=== PATIENT | female | born 2005 | race Caucasian/White ===

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

== ENCOUNTER 2024-09-06 08:40 | Outpatient (OUT) | payer OTHER, SELFPAY ==
--- OUTSIDE RECORDS SUMMARY | 2024-09-06 08:56 | XMS_ITS | CCD ---
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 Name Role Phone DR CLEO BLANKENSHIP Primary Care Unavailable SANIA BARKER Admitting Unavailable SANIA BARKER Attending Unavailable DR CLEO BLANKENSHIP Primary Care Unavailable KARINA ALEJANDRO Admitting Unavailable KARINA ALEJANDRO Consulting Unavailable KARINA ALEJANDRO Attending Unavailable Marker D.O., Dee Gandara Attending Unavailab CLEO Nicholson Primary Care Unavailable Marker D.O.Dee Admitting Unavailab le NadiraWellington Brito Admitting Unavaila ble [place] Attending Unavaila CLEO Doherty Primary Care Unavailable [place] Monique Admitting Unavailable CLEO BLANKENSHIP Primary Care Unavailable [place] Monique Attending Unavailable NadiraWellington Brito Admitting Unavaila ted DHALIWAL, Wellington Cast Attending Unavaila CLEO Doherty Primary Care Unavailable CLEO BLANKENSHIP Primary Care Unavailable Marker D.O.Dee Admitting Unavailab le Marker D.O., Dee Gandara Attending Unavailab le [place] Monique Admitting Unavailable CLEO BLANKENSHIP Primary Care Unavailable [place] Monique Attending Unavailable [place] Monique Attending Unavailable [place] Monique Admitting Unavailable CLEO BLANKENSHIP Primary Care Unavailable [place] Monique Attending Unavailable CLEO BLANKENSHIP Primary Care Unavailable Cristino Moniqueime Charli Admitting Unavailable [place] Monique Attending Unavailable CLEO BLANKENSHIP Primary Care Unavailable [place] Monique Admitting Unavailable CLEO BLANKENSHIP Attending Unavailable CLEO BLANKENSHIP Primary Care Unavailable SELVIN DAMICO Attending Unavailable SELVIN DAMICO Attending Unavailable SELVIN DAMICO Referring Unavailable CLEO BLANKENSHIP Primary Care Unavailable SELVIN DAMICO Attending Unavailable SELVIN DAMICO Referring Unavailable CLEO BLANKENSHIP Primary Care Unavailable CLEO BLANKENSHIP Primary Care Unavailable LISA GAMEZ Attending Unavailable JIM MALONEY Attending Unavailable JIM MALONEY Referring Unavailable CLEO BLANKENSHIP Primary Care Unavailable Allergies Allergy Classification Reported Allergen(s) Allergy Type Date of Onset Reaction(s) Facility (1 source) DULoxetine Drug Allergy [facility] Repository (1 source) Skin Therapy; Translations: [Skin Therapy] Propensity to adverse reactions (disorder) [facility] Repository (2 sources) dimenhyDRINATE; Translations: [DIMENHYDRINATE] Drug Allergy [facility] Repository (2 sources) FLUoxetine; Translations: [FLUOXETINE] Drug Allergy [facility] Repository (1 source) Levonorgestrel; Translations: [LEVONORGESTREL] Drug Allergy [facility] Repository Problems Problem Classification Problem Date Documented Da te Episodic/Chronic Other connective tissue disease (4 sources) Pain in left finger(s); Translations: [PAIN IN LEFT FINGERS] Onset: 06-19-2022 Episodic Other non-traumatic joint disorders (1 source) Pain in right shoulder; Translations: [Pain in right shoulder] Onset: 07-10-2024 Episodic Other non-traumatic joint disorders (1 source) Shoulder pain Onset: 07-10-2024 Episodic Residual codes; unclassified (4 sources) Procedure and treatment not carried out due to patient leaving prior to being seen by health care provider; Translations: [PROC AND TX NOT CARRIED OUT PT LEAVE] Onset: 06-18-2022 Episodic Syncope (2 sources) Syncope and collapse; Translations: [Syncope] Onset: 03-26-2024 Episodic Unclassified (1 source) EMS Onset: 03-26-2024 Unclassified (1 source) drug by dog last mon, shoulder hurts Onset: 07-10-2024 Results Test Name Value Interpretation Reference Range Facility XR SHOULDER RT MIN 2 VWSon 0 07-10-2024 XR SHOULDER RT MIN 2 VWS XR SHOULDER RT MIN 2 VWS CLINICAL INFORMATION: shoulder pain TECHNIQUE: XR SHOULDER RT MIN 2 VWS 3 views right shoulder were obtained. There is no acute osseous abnormality no fractures seen. No malalignment. IMPRESSION: No acute findings. Finalized by Aurelio Vuong MD on 07/10/2024 8:30 PM Normal [facility] CBC AND AUTO DIFFon 03-26-20 24 ABSOLUTE BASOPHIL 0.0 X10E9/L Normal 0.0-0.2 [facility] Comment on above: Performed By: #### C KITTY, , 26666-8, CBCA #### [facility] ([id number]) [address] [place] [address] 45281 ABSOLUTE NEUTROPHIL 6.6 X10E9/L Normal 1.5-6.6 [facility] Comment on above: Performed By: #### C KITTY, , 69836-1, CBCA #### [facility] ([id number]) [address] [place] [address] 85821 Basophils/100 WBC (Bld) 0.2 % Normal [facility] Comment on above: Performed By: #### C KITTY, , 63771-2, CBCA #### [facility] ([id number]) [address] [place] [address] 37759 Eosinophils (Bld) [#/Vol] 0.1 10*3/uL Normal 0.0-0.4 [facility] Comment on above: Performed By: #### C KITTY, , 62447-1, CBCA #### [facility] ([id number]) [address] [place] [address] 56862 Eosinophils/100 WBC (Bld) 0.8 % Normal [facility] Comment on above: Performed By: #### C KITTY, , 01528-5, CBCA #### [facility] ([id number]) [address] [place] [address] 79969 Erythrocyte distribution width (RBC) [Ratio] 13.6 % Normal 11.5-15.0 [facility] Comment on above: Performed By: #### C KITTY, , 25061-9, CBCA #### [facility] ([id number]) [address] [place] [address] 94181 Hematocrit (Bld) [Volume fraction] 34.3 % Low 35-47 [facility] Comment on above: Performed By: #### C KITTY, , 30429-1, CBCA #### [facility] ([id number]) [address] [place] [address] 98079 Hemoglobin (Bld) [Mass/Vol] 12.0 g/dL Normal 11.7-15.5 [facility] Comment on above: Performed By: #### Julia TANG, , 97130-7, CBCA #### [facility] ([id number]) [address] [place] [address] 13695 Lymphocytes (Bld) [#/Vol] 1.0 10*3/uL Normal 1.0-3.5 [facility] Comment on above: Performed By: #### C KITTY, , 78269-8, CBCA #### [facility] ([id number]) [address] [place] [address] 94364 Lymphocytes/100 WBC (Bld) 12.6 % Normal [facility] Comment on above: Performed By: #### C KITTY, , 61516-8, CBCA #### [facility] ([id number]) [address] [place] [address] 84863 MCH (RBC) [Entitic mass] 29.5 pg Normal 27-34 [facility] Comment on above: Performed By: #### C KITTY, , 83375-2, CBCA #### [facility] ([id number]) [address] [place] [address] 23268 MCHC (RBC) [Mass/Vol] 35.0 g/dL Normal 32-36 [facility] Comment on above: Performed By: #### C KITTY, , 31614-7, CBCA #### [facility] ([id number]) [address] [place] [address] 40809 MCV (RBC) [Entitic vol] 84 fL Normal 80-100 [facility] Comment on above: Performed By: #### C KITTY, , 15020-3, CBCA #### [facility] ([id number]) [address] [place] [address] 81331 Monocytes (Bld) [#/Vol] 0.4 10*3/uL Normal 0-0.9 [facility] Comment on above: Performed By: #### C KITTY, , 26180-3, CBCA #### [facility] ([id number]) [address] [place] [address] 96476 Monocytes/100 WBC (Bld) 5.0 % Normal [facility] Comment on above: Performed By: #### C KITTY, , 13732-3, CBCA #### [facility] ([id number]) [address] [place] [address] 78571 Neutrophils/100 WBC (Bld) 81.4 % Normal [facility] Comment on above: Performed By: #### C KITTY, , 91203-6, CBCA #### [facility] ([id number]) [address] [place] [address] 43015 Platelet mean volume (Bld) [Entitic vol] 9.1 fL Normal 7-12 [facility] Comment on above: Performed By: #### C KITTY, , 10659-0, CBCA #### [facility] ([id number]) [address] [place] [address] 13451 Platelets (Bld) [#/Vol] 182 10*3/uL Normal 150-450 [facility] Comment on above: Performed By: #### C KITTY, , 58458-0, CBCA #### [facility] ([id number]) [address] [place] [address] 81186 RBC COUNT 4.08 X10E12/L Normal 3.80-5.20 [facility] Comment on above: Performed By: #### C KITTY, , 38526-5, CBCA #### [facility] ([id number]) [address] [place] [address] 16183 WBC (Bld) [#/Vol] 8.1 10*3/uL Normal 4.0-11.0 [facility] Comment on above: Performed By: #### C KITTY, , 14691-8, CBCA #### [facility] ([id number]) [address] [place] [address] 58692 COMPREHENSIVE METABOLIC PANE [facility] 03-26-2024 Albumin [Mass/Vol] 3.8 g/dL Normal 3.2-5.3 [facility] Comment on above: Performed By: #### C KITTY, , 78328-6, CBCA #### [facility] ([id number]) [address] [place] [address] 72884 ALP [Catalytic activity/Vol] 58 U/L Normal 39-130 [facility] Comment on above: Performed By: #### C KITTY, , 85406-9, CBCA #### [facility] ([id number]) [address] [place] [address] 19349 ALT [Catalytic activity/Vol] 11 U/L Normal 0-31 [facility] Comment on above: Performed By: #### C KITTY, , 67230-7, CBCA #### [facility] ([id number]) [address] [place] [address] 50764 Anion gap [Moles/Vol] 7 mmol/L Normal 5-15 [facility] Comment on above: Performed By: #### C KITTY, , 30993-9, CBCA #### [facility] ([id number]) [address] [place] [address] 44584 AST [Catalytic activity/Vol] 18 U/L Normal 0-41 [facility] Comment on above: Performed By: #### C KITTY, , 28118-3, CBCA #### [facility] ([id number]) [address] [place] [address] 60726 Bilirubin [Mass/Vol] 0.6 mg/dL Normal 0.3-1.2 [facility] Comment on above: Performed By: #### C KITTY, , 11383-2, CBCA #### [facility] ([id number]) [address] [place] [address] 68895 Calcium [Mass/Vol] 8.9 mg/dL Normal 8.5-10.5 [facility] Comment on above: Performed By: #### C KITTY, , 21756-5, CBCA #### [facility] ([id number]) [address] [place] [address] 29609 Chloride [Moles/Vol] 106 mmol/L Normal 98-109 [facility] Comment on above: Performed By: #### C KITTY, , 25790-5, CBCA #### [facility] ([id number]) [address] [place] [address] 53060 CO2 [Moles/Vol] 24 mmol/L Normal 22-32 [facility] Comment on above: Performed By: #### C KITTY, , 53271-9, CBCA #### [facility] ([id number]) [address] [place] [address] 79280 Creatinine [Mass/Vol] 0.76 mg/dL Normal 0.40-1.00 [facility] Comment on above: Result Comment: METH OD TRACEABLE TO IDMS STANDARD Performed By: #### C KITTY, , 09760-3, CBCA #### [facility] ([id number]) [address] [place] [address] 08156 eGFR (CKD-EPI) NON-RACE DEPENDENT >90 Normal >59 [facility] Comment on above: Result Comment: Reported eGFR is based on the CKD-EPI 2020 equation that does not use a race coefficient. Performed By: #### C KITTY, , 46659-6, CBCA #### [facility] ([id number]) [address] [place] [address] 52408 Glucose [Mass/Vol] 65 mg/dL Normal 65-99 [facility] Comment on above: Performed By: #### C KITTY, , 80150-3, CBCA #### [facility] ([id number]) [address] [place] [address] 31029 Potassium [Moles/Vol] 4.0 mmol/L Normal 3.5-5.0 [facility] Comment on above: Performed By: #### C KITTY, , 86494-9, CBCA #### [facility] ([id number]) [address] [place] [address] 12941 Protein [Mass/Vol] 6.5 g/dL Normal 6.0-8.0 [facility] Comment on above: Performed By: #### C KITTY, , 41456-7, CBCA #### [facility] ([id number]) [address] [place] [address] 33915 Sodium [Moles/Vol] 137 mmol/L Normal 134-146 [facility] Comment on above: Performed By: #### C KITTY, , 87271-0, CBCA #### [facility] ([id number]) [address] [place] [address] 36376 Urea nitrogen [Mass/Vol] 14 mg/dL Normal 5-23 [facility] Comment on above: Performed By: #### C KITTY, , 07276-8, CBCA #### [facility] ([id number]) [address] [place] [address] 44238 HCG ( test) Ql (U)o n 03-26-2024 Beta HCG ( test) Ql (U) Negative Normal NEG [facility] Comment on above: Performed By: #### 2 106-3 #### [facility] ([id number]) [address] [place] [address] 48628 MAGNESIUMon 03-26-2024 Magnesium [Mass/Vol] 1.9 mg/dL Normal 1.8-2.6 [facility] Comment on above: Performed By: #### C KITTY, , 51558-2, CBCA #### [facility] ([id number]) [address] [place] [address] 21394 Troponin I.cardiac High sens itivity method [Mass/Vol]on 03-26-2024 TROPONIN I, HIGH SENSITIVITY <2 Normal <16 [facility] Comment on above: Result Comment: Reference ranges have not been established for patients under 21 years of age. Performed By: #### C KITTY, , 44371-6, CBCA #### [facility] ([id number]) [address] [place] [address] 03151 URN MACROSCOPIC NURon 2023 BILIRUBIN JOSE MIGUEL Negative Normal NEG [facility] Comment on above: Performed By: #### N UM #### [facility] ([id number]) [address] [place] [address] [place] [address] BLOOD/HGB JOSE MIGUEL Negative Normal NEG [facility] Comment on above: Performed By: #### N UM #### [facility] ([id number]) [address] [place] [address], [place] [address] GLUCOSE JOSE MIGUEL Negative Normal NEG [facility] Comment on above: Performed By: #### N UM #### [facility] ([id number]) [address] [place] [address] [place] [address] KETONES JOSE MIGUEL Negative Normal NEG [facility] Comment on above: Performed By: #### N UM #### [facility] ([id number]) [address] [place] [address] [place] [address] LEUKOCYTE ESTERASE JOSE MIGUEL Trace Abnormal NEG Pr [facility] Comment on above: Performed By: #### N UM #### [facility] ([id number]) [address] [place] [address] [place] [address] NITRITE JOSE MIGUEL Negative Normal NEG [facility] Comment on above: Performed By: #### N UM #### [facility] ([id number]) [address] [place] [address] [place] [address] PH JOSE MIGUEL 8.0 Normal 5.0-8.5 [facility] Comment on above: Performed By: #### N UM #### [facility] ([id number]) [address] [place] [address] [place] [address] PROTEIN JOSE MIGUEL Negative Normal NEG [facility] Comment on above: Performed By: #### N UM #### [facility] ([id number]) [address] [place] [address] [place] [address] SPECIFIC GRAVITY JOSE MIGUEL 1.020 Normal 1.003-1.035 [facility] Comment on above: Performed By: #### N UM #### [facility] ([id number]) [address] [facility], [place] [address] UROBILINOGEN JOSE MIGUEL 0.2 eu/dL Normal <1.1 [facility] Comment on above: Performed By: #### N UM #### [facility] ([id number]) [address] [place] [address], [place] [address] XR CHEST 2 VWSon 03-26-2024 XR CHEST 2 VWS XR CHEST 2 VWS XR CHEST 2 VWS CLINICAL INDICATION: Syncope. COMPARISON: None. IMPRESSION: 1. No acute cardiopulmonary abnormality. Finalized by Marcell Chavez MD on 03/26/2024 5:18 PM Normal [facility] Coding Summaryon 08-19-2022 Coding Summary HTMLBase 64 LxofncmmKGo7iQr+PGhl YWQ+AC8CUUDkH48mhRVt pD9MR7rSET0FXDKCMBGR DA3ZDS4ncRI4FQdfT2Xd biAv ZliieCVnPE91ZQc2XAU7 vBtxGEmvbK7fyXZzM1l1 YnStYY62iT25KEouOHWy UzL2AkIshzgmnVFe M0sgBxKqmVGmGnj+PHRh YmxlIHdpZHRoPScxMDAl JlHilOqmAB8eBr8iPOSf LWNvbGxhcHNlOiBj w9jnWESpHIzfLG8beIij J7StoUH7QRIuk1a9Lj01 dHI+JVQmHXO2wZpnXBxy e986UnXaq4bgYBA6 iISfNPalXZB9D79si8G4 POMiERXcLKA2dBI3lT3t oXpinzowA2HmyYSfHhW1 SQN0lWLjuT8ooYzh nlgujB0xIcn+E67DXW1D ZNIPFN1LBug4C1HvNynf dHI+CQ67JEUbQV83gSKd jUDev1snjKc5XiWw RLKgETW3rZikWNhtz0Td UEJmT92bdXSod4A4GJYs jLysrCWjYbEkpAM3jR5o JBmcmhrgs5yjfjwy Tkwyh7keog87oC91G45i ORkoVQRnFDH1AXTuOERt pYbaqb1hoQ5kWe1+IDxj m6hso5xawXq8IlQd PUVbgrVqrVxmRHD1r3Sl Qr74N3YsgOwph3LbXam6 ku22kUMjb4F6kGY7MWcp YLVcmG8tTXabZeD2 ORBcQkTanV94zYSlIOnm Ej4pnOpqsZxiJZ1vOEGo hbvbKYBucW1yHOQddSMk oMssLW2tPLAshhgu l450GjFpOVS0JOIkmLNw V3DxdV4kLrBwQHLmUDQy I3EzfEWbXActE947SMyj UxA5GMYwdoEoI0Fy CXGafYfmPfU3o0L9Tt2K y5XhavnqBAH9LMdhXRYj MjGiFoNnFlU9M6RnWov2 AISrtNvwIR9wD2Js TJJpujfjdmijtZK2SDSu AAGupU66zAYxSQcvHn4h i2Q1d438ZYWdFYCftX69 Os0hkIfsZBKfyGFY kJ4tlixio3bhcxmlHvVe CLFhJHm6GDi4HLZawScs GpUaCCY2RrG8AZO8nRUx jY1doEgoelmwaP7r Oyc+M78yoU6zEQA2XDJ2 fcyhFCKlhpTpMC70TM31 G3KxRufrgNZgkOE+PGRp jvDqjJldXP6wBbNy v6kuz8CcCQqbC5HwQDTp IYfxRjy2YWNhZQX7tMI6 lT0uRSQqUDoqu7Q1vEZ2 M3AqjlMtrx0lc4rd FERzFNuhH79ooJHuk4K1 ETZekCD5QMIltNxbAxEl sR88Oco+RWHvbDcav9Wa Vzppi4nnv6trlJe6 IjMwJSIgdmFsaWduPSJ0 a6ZsPh09J66jRCrkNQCd JBKiYDZvEUDzdPokgl8r lS5zSn0+PGNvbCB3 nMV9lS1nAEZoKjT4JGih X147TeYajMDbVddci1tp b7ynvRl0QgOmBYNbbuGn nJteHTL9m2ZjZn19 A35pTBonAIJtTAHyUEXu JKQmcHfqkp2ayB6jQq3+ PQ5ib7odbp22pY49sUT+ PHDySII9pHmzHCfz CRBcdO8mAEvcPmJ5AUXe ZrKidM23qNFuOEsqXt9u qHcanJidEI3hDVWuxvid a279OwFph6qiAHVz nYGfAEgyAPM3U04jo5B4 NBJlCFMgJDO0aEY7tR6p bGlnbjogbGVmdDsgdmVy tSrqBGxzTGbcB008 IHRvcDsnPlBhdGllbnQg GyInEPe8J1JgBtf9UIPa qBxfQL0wiENhOEpvQc6j wPkmfEvxLG0dBMTz xwcmy606IaWww1ubWXPq qTYjOPrvPUC5O11ml6N9 KDOjGCEkXWG9nVH5kJ4q bGlnbjogbGVmdDsg cyAszVcbCFixOFrqR115 IHRvcDsnPkJpcnRoIERh aCI2MA07FH76pHTtc7O2 wFI5D6AxBGPmdyyq tykjzKQ0EZJoMUAwrR90 Mv1qfGafCi9zFZGzRIC7 EMBblWZyF4IemR5uBbCi LOOtDVVtX3KruUZn GWylV065OUvpIfU1QCSi krUsL4QuGEOnaMvuDqH5 q5M7Mb6MN7A4MN29IO47 jPChl7K8fHF0H1Bo GKAprmzxftqalMQ7DOOz YDMilJ15Zr0xvGdsJk7k MFOgZUD1JWWajWOjW7Yo jQ4cMqNcLKUjBXPp W1GdtSWlFWilU346JLuc OyT6EFDnulLeI5TqOKZa lOtqWvY7o9T3Ge1WJJj2 MC09JN63kCRel9U8 zDO9C2ZdSQJmvllrfjmb iWY2VJWhSFCliZ45Ng0d xHpfYg9oAOAfLZO2HKYp tRLgQ1XpjI5yJeCl OMTqGISqA6GfxODwQOac Q212SChsJeJ0KADmraXm U5HrELQwyVfqHpU7y9P8 Wv5KHYKtON20NAJ2 aDD1BM90BH15T7SiUhhq dGFibGU+PHRhYmxlIHdp ZHRoPScxMDAlJyBzdHls ZF4yQl7uOPYwYSRx aDztgWCjLmSti0hjPWEg YTbfZG6ajFcyZ5YpwYR8 DVMqo8t1Rj85G51hP5Az dXA+JDEoqIL3sHC3 kS2tIcKpZsR2XLmkK158 SgKrmORjYpgds2eks5cb xCl5CuW3WXSsdzHguMic KMQ1q3PnCq70K37v IHdpZHRoPSIxNSUiIHZh cWgaan0ivE2wFt5+PGNv qQG0nTM2jL0vMkCbOvN7 IXrzT336JhJytDKs Ekggf5bmx1flnIe4SaSc UEEebbKakXzaCWD8y2Wy Oh63R8ZluSopb9BjCbm3 pc23mMWbj4D9eSO4 M8JrDKIjejdqfHWsbQic RJ6aGAYtxwhvRIUizS6i STFlS8e5DvDnNoF2JRkm R2HxzlL2AFUwhHVx IPgaIGO4P26mw8X6DTBa MNMqIKK1hPW2iQ9ysXgd bjogbGVmdDsgdmVydGlj PHssQKlsI780MNGl uRcaQUMduR5vWHAjaSBj bYogDV2vWGSerbcdHpaQ FrJSKD4kYZdKWRQJQQzB OG6JK7nAVYE6F9Ld Gco1VOTxbOjbMM6njTGw ZQkfYq7kdAlfoYxjCG3r IHQyueudIVOggQ4yDIIy nJDfjRnuYZ8jGEFf toxlz334EhMyLOG0JUIm xOMbS5BwfT6uJfLmAOZm VKUjG2IrmCWeYCiwZ894 STbfHhK1SWEozlNm J1GsBQGnwPboCuU7u3J5 Ll9cCY8gCP5zZPL5II83 FS45zYLkf0S6pVH1Z7Zh ZGRpbmctcmlnaHQ6 MGDbRLIcwQ11bINpSTcn Ox6nv4U9y399LKTrGADy mB55Hh8ohHmtISBgfVFB wR9uapasy1gnkcxw YuNhUFYsZMd0TRq9QJTl lLcgQfHaNUL3SuX6GJC4 mSVlhF8lrFdhelgloX0n Oyc+MTcgWWVhcnM8 H7QpDtn8KAEcyXuhHQ7t vGYdSSmhAi6zcGdygItd SA9cHLQpclnpRZOdeR4d MLSpqQUglNgjQA1g FJHtkmlzv657ZtByFKZ8 ZRSszVMhV0OthV6bGlQd SWXoRZHeI6XewNBoRAop B401NDpsOzP1DLTm pfIzC4BxBKEplXhrXpG5 j8S1Og6UMK3UYBT4R6Tv Zwe8GEDmfIeeHY0dyAXz VBevOy7mzPryjIvt AE6yWRTrajxxQGOmgG6s CVUbcGDawWzlZN5kWHMh fhoac223FjQmDSP0PHAk vJPiG8NcwS5pTiJx QNHbWUZoC4DfnBTcRAhy I064LLwhRgY4SZUyniRf E4NrUEHexCkkJeA9a1C5 Tv8JMZnrlED+PC90 ws43V2YrGcbqSkb6EDTy SQQ1pLT0cI5jTRYpXYoo v6Z6lJR1X1RdfwGusv5d l2qaTPGlEMvqC65n pUKzl5H0REEaiXI5AYYo lUvfZxIlfJ67Vtf+PGNv iCagn4WqIqyrl9kow1co oQl9MlQhZLHteyKd iCbiMUY0l7YwWz74V46w IHdpZHRoPSIzMCUiIHZh bXixvc4glP1zOx7+PGNv jOY7mRW0rK7lTgAy HrF0IJgmU448HwAozIIb Hdmly2kkf2kmxOt7JbSv GZXuyoVruNsoPLC0m6Qw Gu23H3ZwgBnbt7Zn Oxh9lo85gYYpe8K6fOS6 O8TuPDTirgjrvSZeqDms UK7rOCLxegntEBDjrD5e MXWzB9g9VeWbFoJ2 EBuwJ3HyiaP1WXAlfKOr VIBotKRBaE0cbiktj2zg utyrQcZlJWScWQb0SBc7 LWFsaWduOiBsZWZ0 RoA9LAQ5kMUieS8syTdx ufrrxB2mJxn+BVh9t3bf iMEiHJ2iiYJ9GL92VK74 hAWua7T2oZI2B9Ac PRVjselxgkobkZE3SMHv TUWgkF42Ap0qhUltIb5h IQGcVLL9JXPawHHwA9Ls kE4nFoEeAAPuJWWo D5ZbiWRaUDneF110DUku PrP0GMGftmCnS5AhNLUd aXqsBzD9x6D4Su7VFQ17 YU60HS10bXOsc1Q1 mYO7K0TmSNKhyzxlvhjf eOT6FCUuLNWovY83Yf2k zBblYw3mGRSlPHF0HSAx qSDxW6YskO6xYoPz KFKwUNPbI9HpjELhAVrv I472XWqgRpR6DDEjugLt Z7KnITCddYqfTrI7h5B8 Si8ZCr40NR92GN36 rNKzl0M0iWQ0I7KhVUXy wnhaiovzkVC8MYLhHWVk aD23Zy0lrYpeJz6qTBFf BNN8IBIurCXdX5Mh qE7aUgThYTCnLKJiE2Iw aPTjGMubG145TIevTxA0 KIGunwZsQ8AlABFjeYwc GiC8d0X3Gq6NTZai idy1W6EmWrqqtWS+PC90 EHZiPF81wOSgzIBje7nf yRc9PzWdTAXpZNN1bXbn MSxnm5UoJSZnH40r bGF (more content not included)... [facility] Discharge Instructionson Discharge Instructions [id number] [facility] ED Clinical Summaryon 2021 ED Clinical Summary [facility] ? Urgent Care [address] [place], [place] [id number] Clinical Summary PERSON INFORMATION Name: NESHA LEE Age: 16 Years Sex: FEMALE : 2005 MRN: Acct#: Visit Reason: Medical screening exam; BWC-F/U LEFT PINKY FINGER INJURY Arrival: 08/16/2022 15:57:03 Discharge: 08/16/2022 16:31:00 LOS: 000 00:34 Check In: 08/16/2022 15:57:03 Checkout: 08/16/2022 16:31:00 Address: [address] [place] [address] [address] [facility] [address] PCP: CLEO BLANKENSHIP PROVIDER INFORMATION Provider Role Assigned Unassigned Kashmir Monique PA-C ED PA 08/16/2022 15:59:57 Ary Sarah ELECT[employer]ICIAN DECK Nurse 08/16/2022 16:03:36 VITALS INFORMATION Vital Sign Triage Latest Temperature Tympanic Temperature Temporal Artery Pulse Rate O2 Sat 97 % 97 % Respiratory Rate Blood Pressure /68 mmHg /68 mmHg MEDICAL INFORMATION Medications Given: Allergy Information: Skin Therapy PHYSICIAN DOCUMENTATION DISCHARGE INFORMATION: Discharge Disposition: Home Discharge Location: Home PATIENT EDUCATION INFORMATION Instructions: Follow-Up: With: Address: When: Return to this practice , only if needed DIAGNOSIS: Contusion of left hand including fingers; Contusion of unspecified finger without damage to nail, initial encounter Patient Understands: Yes - Patient/family/careg iver verbalizes understanding of instructions given Comment: Normal [facility] ED Patient Summaryon 022 ED Patient Summary [facility] ? Urgent Care [address] [place] [address] PATIENT DISCHARGE INSTRUCTIONS Patient Information Name: NESHA LEE Age: 16 Years Date of : 2005 Reason For Visit: Medical screening exam; BWC-F/U LEFT PINKY FINGER INJURY Arrival Time: 08/16/2022 15:57:03 Primary Care Physician: CLEO BLANKENSHIP Attending Physician: Kashmir Monique PA-C Comment: Patient Education With: Address: When: Return to this practice , only if needed Medication Information: The exam and treatment you received today in the [facility] Emergency Department were for an urgent problem and are not intended as complete care. It is important for you to follow up with a doctor, nurse practitioner, or physician?s health care assistant for ongoing care. If your symptoms become worse or you do not improve as expected and you are unable to reach your usual health care provider, you should return to the Emergency Department, we are available 24 hours a day. For those patients who have received Radiology results, the interpretation of your X-ray as given to you by our Emergency Department physician is only a preliminary report. The Radiologist will review your films and if there is a change in the diagnosis you will be notified by phone. Please make sure you have provided a working phone number so we can reach you if necessary. In the event that you had a lab culture while you were a patient in the Emergency Department, you will be notified by phone if there is a need to change your antibiotic. Please make sure you have provided a working phone number so we can reach you if necessary. [facility] Emergency Department has provided you with a complete list of medications post discharge. Please inform your infant babysitter/provider of your visit and for further instruction on these medications. Any specific questions regarding your chronic medications and dosages should be discussed with your primary care physician(s) and/or pharmacist. Visit Information Visit Diagnosis: Diagnoses This Visit Contusion of left hand including fingers (S60.222A) Contusion of unspecified finger without damage to nail, initial encounter (S60.00XA) Medical screening exam ([id number]) If you received any narcotics, sedation, or any other medication that causes drowsiness for the next 24 hours, unless otherwise directed: ? Do not drive a car. ? Do not operate machinery such as power tools, lawn mowers, drills, sewing machines, or stoves ? Avoid alcoholic beverages and drugs for allergies, nerves, or sleep ? Do not make important personal or business decisions or sign any legal documents Reason for Visit: [facility] f/u appt Allergies: Substance Reaction Symptoms Type Comments Skin Therapy Environment Vital Signs: Vitals and Measurements this Visit (last charted value for your 08/16/2022 visit) Vital Signs This Visit Peripheral Pulse Rate: 58 bpm Respiratory Rate: 16 br/min Systolic Blood Pressure: 104 mmHg Diastolic Blood Pressure: 68 mmHg SpO2: 97 % Oxygen Therapy: Room air Measurements This Visit Height/Length Measured: 180.34 cm Weight Measured: 78.02 kg Body Mass Index: 23.99 kg/m2 Problems List: Problem Onset Comments No Problems found Major Tests and Procedures: The following procedures and tests were performed during your ED visit. Laboratory Radiology Cardiology Viruses or Bacteria What?s got you sick? Antibiotics only treat bacterial infections. Viral illnesses cannot be treated with antibiotics. When an antibiotic is not prescribed, ask your healthcare professional for tips on how to relieve symptoms and feel better. Usual Cause Illness Viruses Bacteria Antibiotic Needed Cold/Runny Nose NO Bronchitis/Chest Cold (in otherwise healthy children and adults) NO Whooping Cough Yes Flu NO Strep Throat Yes Sore Throat (except strep) NO Fluid in the middle ear (otitis media with effusion) NO Urinary Tract Infection Yes Antibiotics Aren?t Always the Answer www.cdc.gov/getsmart GET SMART Know When Antibiotics Work [place].S. Department of Health and Human Services Centers for Disease Control and Prevention June 2014 Normal [facility] Urgent Care Note- Provideron 08-16-2022 Urgent Care Note- Provider Patient: NESHA LEE Age: 16 years Sex: FEMALE : 2005 Associated Diagnoses: Contusion of left hand including fingers Author: Kashmir Monique PA-C Basic Information Additional information: Chief Complaint from Nursing Triage Note : Chief Complaint 08/16/2022 16:17 EDT Chief Complaint [facility] f/u appt . History of Present Illness OCCUPATIONAL HEALTH FOLLOW-UP Date of injury: 06/14/22 Claim #: [id number] Employer: [employer] Mechanism of Injury: Smashed finger/hand with dough and bowl Diagnosis: Contusion of left hand including fingers This is a 16 year old here today in follow-up for her work related injury. She was working for [employer] at [employer] on 06/14 when she was carrying a bowl with dough and the bowl dropped onto her left hand. She stated that this was a very large, heavy bowl that requires two people to transport. After this happened, she was in too much pain to continue to do her job so she states she was sent home 2 hours early. She was already scheduled off the following day, but when it was no better the next day she was seen in our ER. X-ray was non acute. It seems like she overused the splint because of the persisting pain. She has been performing light duty work. With her continued complaints she was seen by ortho. They agreed associated symptoms are likely from overuse of her splint, and symptoms have improved with ROM exercises and completion of OT. Last session is tomorrow. She was seen by ortho yesterday and cleared to resume normal work. No fevers, chills or malaise. No other joint pains or myalgias. No numbness, tingling or weakness. No skin rashes or lesions. No further ecchymosis. There are no other associated symptoms. Movement still makes it worse. Nothing else makes the symptoms better or worse. Symptoms are described as sudden onset, moderate in nature and mostly improved. Health Status Allergies: Allergic Reactions (Selected) Unknown Skin Therapy- No reactions were documented.. Past Medical/ Family/ Social History Medical history: Resolved MRSA (methicillin resistant staph aureus) culture positive ([id number]): Resolved. Comments: 05/29/2022 EDT 8:05 EDT - Em Hamilton 05/25/2022-Wound Culture-Abscess Armpit R -is positive for Methicillin-resistan t Staphylococcus aureus (MRSA). Please place the patient in Contact Precautions.. Surgical history: No active procedure history items have been selected or recorded.. Family history: No family history items have been selected or recorded.. Social history: Social & Psychosocial Habits Alcohol 06/28/2022 Alcohol Use: Never Substance Abuse 07/06/2022 Substance use: Never Tobacco 08/16/2022 Smoking tobacco use: Never tobacco user Electronic Cigarette/Vaping 08/16/2022 Electronic Cigarette Use: Never . Problem list: Active Problems (1) No Chronic Problems . Physical Examination Vital Signs Vital Signs 08/16/2022 16:16 EDT Peripheral Pulse Rate 58 bpm Respiratory Rate 16 br/min Systolic Blood Pressure 104 mmHg Diastolic Blood Pressure 68 mmHg SpO2 97 % Oxygen Therapy Room air . Measurements 08/16/2022 16:16 EDT Height 180.34 cm Weight 78.02 kg Body Mass Index 23.99 kg/m2 . GENERAL: Awake, alert and oriented to person, place and situation. Well nourished, well developed, non toxic, NAD. EXTREMITIES: Still with some mild TTP at the PIP of the left fifth finger. This is significantly improved from her last evaluation where the entire finger and fifth metacarpal was exquisitely tender. No further soft tissue swelling. No further ecchymosis. No cyanosis, clubbing or other edema. Good muscle tone. She has full ROM without difficulty today. There is brisk cap refill distally. Radial pulses 2+ bilaterally. SKIN: Normal inspection, no visualized ecchymosis, abrasion or rash. NEUROLOGIC: Light touch sensation in tact, strength 5/5 in bilateral upper extremities. Normal mentation. No focal neurological deficits appreciated. Medical Decision Making Last OT is tomorrow, she has been cleared to return to work by ortho. Return with new, or worsening symptoms, or symptoms failing to improve as expected and the patient voiced their understanding. Questions answered. Follow-up here only as needed. Impression and Plan Diagnosis Contusion of left hand including fingers ([id number] S60.222A, Discharge, Medical) Plan Condition: Stable. Disposition: Discharged: Time 08/16/2022 16:24:00, to home. Follow up with: ; Return to this practice , only if needed. Counseled: Patient, Family, Regarding diagnosis, Regarding treatment plan, Patient indicated understanding of instructions. [Electronically Signed on: 08/16/2022 16:34 EDT] Kashmir Monique PA-C [Verified on: 08/16/2022 16:34 EDT] Kashmir Monique PA-C [facility] 022 Urgent Care Record [facility] ? Urgent Care [address] [place] [address] PATIENT DISCHARGE INSTRUCTIONS Patient Information Name: NESHA LEE Age: 16 Years Date of : 2005 Reason For Visit: Medical screening exam; [facility]-F/U LEFT PINKY FINGER INJURY Arrival Time: 08/16/2022 15:57:03 Primary Care Physician: CLEO BLANKENSHIP Attending Physician: Kashmir Monique PA-C Comment: Visit Diagnosis: Diagnoses This Visit Contusion of left hand including fingers (S60.222A) Contusion of unspecified finger without damage to nail, initial encounter (S60.00XA) Medical screening exam ([id number]) If you received any narcotics, sedation, or any other medication that causes drowsiness for the next 24 hours, unless otherwise directed: ? Do not drive a car. ? Do not operate machinery such as power tools, lawn mowers, drills, sewing machines, or stoves ? Avoid alcoholic beverages and drugs for allergies, nerves, or sleep ? Do not make important personal or business decisions or sign any legal documents With: Address: When: Return to this practice , only if needed Medication Information: The exam and treatment you received today in the [facility] were for an urgent problem and are not intended as complete care. It is important for you to follow up with a doctor, nurse practitioner, or physician?s health care assistant for ongoing care. If your symptoms become worse or you do not improve as expected and you are unable to reach your usual health care provider, you should return to the Emergency Department, we are available 24 hours a day. For those patients who have received Radiology results, the interpretation of your X-ray as given to you by our Urgent Care physician is only a preliminary report. The Radiologist will review your films and if there is a change in the diagnosis you will be notified by phone. Please make sure you have provided a working phone number so we can reach you if necessary. In the event that you had a lab culture while you were a patient in the Urgent Care, you will be notified by phone if there is a need to change your antibiotic. Please make sure you have provided a working phone number so we can reach you if necessary. [facility] has provided you with a complete list of medications post discharge. Please inform your infant babysitter/provider of your visit and for further instruction on these medications. Any specific questions regarding your chronic medications and dosages should be discussed with your primary care physician(s) and/or pharmacist. Visit Information Allergies: Substance Reaction Symptoms Type Comments Skin Therapy Environment Vital Signs: Vitals and Measurements this Visit (last charted value for your 08/16/2022 visit) Vital Signs This Visit Peripheral Pulse Rate: 58 bpm Respiratory Rate: 16 br/min Systolic Blood Pressure: 104 mmHg Diastolic Blood Pressure: 68 mmHg SpO2: 97 % Oxygen Therapy: Room air Measurements This Visit Height/Length Measured: 180.34 cm Weight Measured: 78.02 kg Body Mass Index: 23.99 kg/m2 Problems List: Problem Onset Comments No Problems found Patient Education Viruses or Bacteria What?s got you sick? Antibiotics only treat bacterial infections. Viral illnesses cannot be treated with antibiotics. When an antibiotic is not prescribed, ask your healthcare professional for tips on how to relieve symptoms and feel better. Usual Cause Illness Viruses Bacteria Antibiotic Needed Cold/Runny Nose NO Bronchitis/Chest Cold (in otherwise healthy children and adults) NO Whooping Cough Yes Flu NO Strep Throat Yes Sore Throat (except strep) NO Fluid in the middle ear (otitis media with effusion) NO Urinary Tract Infection Yes Antibiotics Aren?t Always the Answer www.cdc.gov/getsmart GET SMART Know When Antibiotics Work U.S. Department of Health and Human Services Centers for Disease Control and Prevention June 2014 [facility] Coding Summaryon 08-12-2022 Coding Summary HTMLBase 64 CgyvcvjgKFa2tYv+PGhl YWQ+JW2TMNQfQ35nnICt uR8XI0oUQE3GEAVDPQGC YE9RXJ1ntIR1DJsyR2Cs biAv SmqocLAeQH32MHt5UXE5 rJdpIJaqoN3zqZXbY4j5 LbYuPO47jH44VPhfCBFm YfM9JiShasqipBWv X1npPtIxnWOtDwd+PHRh YmxlIHdpZHRoPScxMDAl WePmzYnhBR2wWw1uIAHq LWNvbGxhcHNlOiBj k4vmRGIpABwiWS9qxIks B5WbcHJ2OTUmx1c1Ry46 dHI+VUBmLZB5qJyfEOyj o823DhLyu8ngOVF3 yWJgTZkxUSU8S29ew0F3 UUYwMOMdQHY8mBD3nN4w fLlofoxfH2PlfPYpAyL0 MLB0rCLnhP0ocGue evtnkZ9tRae+K72EVW4M ZRMIOJ7FCht4U2MuQdot dHI+XD90TDHvOQ31xAMm mDVsl3drqRp5FjXc MYSdPBX1lQyoXFlcw1Nj SULsN89rbDLvg8W6MWGf pZytyXDgVkTkeIR4mP4j TSecvvmln0qytaeo Ggpuk5tori25lQ96M63k QVqqWCYuZAW7AUCwBOQi fSsgju9wdP5lFc7+IDxj n5dau5xxfYs5PvKa EGAooqFleQngZJW4h4Js Bt67Q4WvqUptq2ZyWxl0 ip77zPFab6F4wSJ6KPli IPYswY6gNYneAtA9 HQCjMxPhdW96eYNqVFdk Ho5glMwgrRncVX9bYHGk qmmqFWPgxG8wHOFbzWZx nRlaHT7dSTMcbycl y838IzCgQMR3AHGbfTAh F5JswY1rBbCcAVIiCZAi A1RufXOsDChsY293WCpg KaB2MCSstnQdN1Gq ZBGymOknLgH7m1J1Lv6F o9IkivzpAZZ3OPdoPCFm AfH7YzCbVsD1L0YlJdg7 ZLDzoNmlHO5iW0Cj FSZybvidceddiXK6RJCj UTNkeY21mDWbWBwtQw3y a7O7y453HUQeOEPfwU09 Ph3beRuzUNBpkVFX uS5yupvdf9ukdgywZjKb ZXSzTUl4YRq5MHKtgQhk FmJtOHV3WkP7NVT5aYDa nO1aqFrkrenfgU0h Oyc+Y05ugH9lXVF5FTX3 dbtzDTOfosLvVH00HK66 E4YuEbipoMYznZO+PGRp vfLswFitCW6fVuFo o8awb0TwAXiwX1LxANSx DDczSwq9KJRrRFC3cWH2 gU5xDAOxPHxis7R0eHY8 P8EsgwLxqi7ku4tc YVNqVKppY27fbJPwc2S7 JKNxhJG9RRZohLciAkRn mL06Xuh+SFYitYayo2Fi Aptjp2ojj9huqDc0 IjMwJSIgdmFsaWduPSJ0 p0CvHy43O55iGPbfAFTf TIKlUEOeIBCvcLalaa6h gP7nJz5+PGNvbCB3 rLC9oG6jUSTvHaV6XUbf U287CaVxyFAwIcwzv1ms b9zcoBh1MzTqJOCtkoSz tOhsEHY5v8SrPz98 J16zHRsoFSMfWIOeIYZb EGTclXcepg6xoM7vZz4+ XS5bb6fjzg77pH87kZN+ BPVhDTC5fUnbMDze SQFpnV8aVOyeImX8PBEr BkYlsU69lBCzNMxzNl2d wXuhvHahPU6iJYZcjhzr p749XuWrn2nrQOAo hTOmMPsoFKI3O95vm7L7 CWHgINAvQZV5bJI7jX2j bGlnbjogbGVmdDsgdmVy wNczHXbeSUpwH144 IHRvcDsnPlBhdGllbnQg AfMoHKn1E6AiEif4GIHy kCjqDR2daXYgFGzdMn1d vIzcgFeuQS9jVGQf khuur492BnXmr8mlJZXe xRKhTCloLDZ7K00pn2T4 TPBxAZPfSIK8rQY6tC4r bGlnbjogbGVmdDsg avKqdKmnLTkuFPmoQ111 IHRvcDsnPkJpcnRoIERh gVE2YT14CK09gZFia4C7 tMC5F8HeMYLryxsp zdprjII2TJEpRTLffD91 Nb5kcWkrMn3aWXQjJOF1 GFKaiDLbY7SlrH4sGpFo ADOiSBIcV3CcaIFg DJnnA800PRrqFkT7YECd lqDhF1WwOONwiAmgJzY0 v5X1Gs7US9V1EY20IM50 fJKld0F1zLN1P0Lq TUHfovofqntdtCG0EOZx HKXzoW31Oj9hwInlWb0w RYFjOQV4NWNktICwI9Fv hR8jDdZtZLTcQQPv L6PhqZErTWnzU001UEiq TjA6YGHuakKjI2MfRNBw fCktOlM3d6J6Lc7LSMx6 KD25NY35cKPnq7L5 wDY5V4VxNNQsrhfxxsrb zVJ3DGIwTFYnxL79Lr1g zBdwQr4tISVtUSQ4LXUo qQXdI8OowD2wEeNm WJKwTSZmE7LvhFZzMPbj C736FZseNwN1RMFpddBs R3LvISCjsDmvLxH2a0B8 Pr8UXPVzVY20TGZ4 qIP4PO37WH17Y5TeMqud dGFibGU+PHRhYmxlIHdp ZHRoPScxMDAlJyBzdHls DM3aAh0pPIAvHMFb mMtsgPIpEbVhw3tfVLLa DEpiQZ0hdCdeU9HzwEY5 RMNcr9g5It87G38lC5Pm dXA+UUMjcYL1yHP9 xR1zIiZnCrW3QEsiG015 UnCihDSmAfzyt9wyu0xd cNw3VtZ9ADYjbfSbkQpd MBO4k3LqJg13U57m IHdpZHRoPSIxNSUiIHZh mLdppw2mhT0fRe7+PGNv sHD2zNN2oC6tKrNoXjC1 JYlbO134MeXpmEDr Ppong4dza1mlcOn6WnQi HPIbniZqiVieRGY0m9Np Mg91G4GzmDkvx6QvVuj7 nt58eMUtz6P8aNR8 X5MeLFBzllnpiKMzwVug NW7jRCQcvwrrNASlvM2h RXYhE6k7JmNmUoP0VInk P5TovnY3EAWswIPj KYzwFSD8L09jj0K9ZBJa VDMyGWQ7bVW7gE9zgMoy bjogbGVmdDsgdmVydGlj KAkyWWgrJ514TFXk oVflJDOmcA8sVGGgpGJr aHwbMN7eUVQnnuktCdzF YuEUSJ0uJGiSQSSDWXiW JY1NM4qCFIW7F8Ks Sqo5CXWkuGfgFZ6kcNUo JRgcNh1elJqgsEgsGU0b OLNyfijlKMDbcU3nZAYf gZCpqYhlXE1cQDCy spcws396OyCnOWB4AYSf dGGbH9WewL3kAiYpCIAr OFSpC3UehYMdVNcoJ498 QTmuIpI5VMBnfgTs S3UtGRSuqAshLvS8k1D5 Ev0oYA5tVR2yHBD1TQ13 OZ64bOMgc6S5fXY5R6Qm ZGRpbmctcmlnaHQ6 CGTtFBLjaN59lNViLTrl Ac8qj4B1n559DFHsYMOe zM63Fx4qlCjlXLBchMRP bD2jysyvy9ilbedf DxXySEDpCKe9GYn7DTFi hVjxAwLsCSA6NlV3GKT7 nMMimK2tbLgieysonR7l Oyc+MTcgWWVhcnM8 P9LyVld1YTTxrSvrFP4e iDHyTUviBc0vbPgthZor GD7yPKEsnujrAYFqdH3n LIQmzCFbsXogFR4l RSObkkmtd832PqWiLVW0 QDUyhPNpC7DioH4xLnCc DNDiLFQqK8ZkePLhKPkk D917GOriVqV7IIUi ysGtV7DnLKRwmYjtJsC5 x8J7Ay3UFF5UVQE3C5Is Jdt3QDRbtZywBQ0owNOl AKdhDy3ivHgiwTut ET6oPXBcdpfjQIMqiG0w JUYooEXjjUewYM1xAYOs gcxuz813ZuMxPLO0IJVp nUEpM3SpnI5uGlOi OFGbRLOtL2CbpANvGFdt F666URliDaJ6UOLppaJu M8NnRMUeyCmrXqQ5l0R6 Ez8PiLXdI6ElN6x0 G2FbCvpbxDQ+QN87ZUEm TO11rGFomKUtp9zjkKk5 LnDjEUPrIFQ2gEllAHdu i8EkMSZrR93wmDYp x7C1TJPhgAblgRZpHhNx nIJ3lQ2kALipzwbcd5rk czevHakhz4axpn08eM56 L21eLXbsHSPzZNYp ZTDiSDBqaWsxcc4gnZ1f Ii8+XIKkiAG4nQC8zC3x SyRuCfH5ECgcT657ExHa wHCbApvfy7urh4tj tDv7DlHiGYFyzlNefLkx MWK2a4WlAg88M70uGDvi ZHRoPSIyMCUiIHZhbGln gp6wmN0hIv6+PC9j w1vvgy69kJ54jJR+PHRk MLH0bOodAKzwTLOzhJ4a BUrjJaJ5PEEyWjHweE73 ePKfNDjeTg2udRae qAkrFG0aORYfqvjph805 GqYal0stSTXcjDJqKBcc VCH4W66mq1V3XEXjQUMl GTD8vZU7nD5wgDua bjogbGVmdDsgdmVydGlj UGvwCLqqX206KXGthZwq FtBsfCLdQ0sjzzOXRD9w OjwvdGQ+PHRkIHN0 qJgiSDvyDQVrtW1kCWTa A4c1WzGaClK4AKxfD6Rs xdN3DIJtpTZhRPPqiHQB sX0abxbph8gamxoh PyNfRBIeDXf2UCi2SVTn xLiqWaIfFBG2OxN1KXO3 wBNmuN4xwXnfukqgvS8x Oyc+RklOOjwvdGQ+ HWEeVDJ8qYdaQVxiDXLw gR4tDOAjU1h0HoZzOeZ4 DCkgR8WcwcS8DXQcbCKz KIAlxKYXgU8ksipt e3epglvgEdIsFCGaKYx7 GJe6QEAzwMxcFtOpPNL2 JgQ3UVX1jZRfiV8seXwn wpwucA6ySvy+TVJO OjwvdGQ+GGGnBIO3jIfh JXdjYQAvxI3oVUNfS5q8 WyWbXzC2NBqwG3ZnvzG2 IGJvbGQgMTBwdCBU tM5hphlnz7nfqdpoIxDi DCGbVFc1NZy9FLLyxVhp XxBcWPO2TbH1OTC2uODk hC2ybJohoojhhI9k Oyc+BVQ8WNN0XP00WR45 G2EgFdpnsMVdyOJ+PHRh YmxlIHdpZHRoPScxMDAl XuOqdMqmEY9tGj3y ZGV (more content not included)... [facility] Coding Summaryon 07-21-2022 Coding Summary HTMLBase 64 DqmwtfdkKRe3nZm+PGhl YWQ+XT0PIIFlS01gfBVj mA2UG8vBED7RKFFYNESM YM4YEE6mxAM3SJuoH3Tc biAv RlernOVlJI27UPy0TXV5 oVyeUDylgR2ouETvN2w9 TwMiFF87bK08JTrrPJWl TvV4EzYxvagvaWIn K7wdTzJvjMMsYov+PHRh YmxlIHdpZHRoPScxMDAl SaRlnFfrQI1oBg7wRTZu LWNvbGxhcHNlOiBj m9htRUZnHIrdOO9pxRqs H9YiwXA5DYNfe3d7Hl53 dHI+MPWjQJY6yVovTEij p820YnCey6smJGF3 bKBiJVxtTFU5B28gw4W3 VHKeWZAxBHQ4tMC2iV1i zBvlmefvS5NkbXUmWuV7 POF5nHBfbT8xnKtg lzqpnC5xImm+N06LNA0X OZFYMC7TDgb0Y0JtNyvs dHI+GZ80XWDtWY71lHVl yRUtj5hccEv4OiDv FILfSMJ5xGuuGSpnj5Ct KIAcU40amRLav2U0KKXa pZncnSEyYlNibIX3eJ8r AVetvzuqx5fnminn Eyfxl9tbcp48kJ46I00y PAssKDImGHW0GZQoNGDo lLhpej6uyU0aRc9+IDxj k6bnm6vajDj8OeEq SWEpkmDzbLgtKTC8h8Dz Jy31G7MgxLnny9JoLse5 ht02oNNss2M9lAU7WGhh GDOfgA7eNAclLlA5 ORXlReNyrZ39eRVrKBil Je5jcFcdiEcbGS4qRPAq fungDNYeeV4zMWXpiAYg dZezTI3oWNRsfwca p428TqAoREV2ILTzkZZg R0JamI1jHwMdCKPrTAQj C2WirAJnEEjgU262OBoq VkA9QJQjinWiC3Wa RMZcyOwuMfF5j4N5Fx2T o0LctxypOUB9YDeuAPY7 UeIjVtExSaQ9H9KfHzg4 NVPemTmlPN2jH9Lo XZOgoydrdlvtzQX0EXYk LMGfbG02wJHuXMubDa7r x0K2c420PKJyOMLoaF80 Mz0paXjbDTRujLSC yX5hjfzpw9xvxewvBmXf NUBuWWn9WDa0VRKorEbd FbAdAMK8YqM2OBL9uUCr kX1bhTobeokydI4k Oyc+G19bdD3uZSR1GZZ7 rlajFFPwavMfKC47LP60 L7LjLogqwLBbzPA+PGRp hnTmxNueMM1qTmYk r9mlh5TnUTpvZ7NbKOPl AQqaTta5YCOuOHA4xEE8 uE0aDHZoVQxok9N6fGK9 Z3MvppGknc1hy8ki WXTlXYovB03yaWXqg4S2 JEBifTO1EGNifVwyKrYk jJ60Ulz+IEBffOidi1Ug Kvqxt7mgw8luxRw7 IjMwJSIgdmFsaWduPSJ0 b2GoEm58W79iYHghCECp IQOpUGGpXJJoqRvuji6y wO5bKs5+PGNvbCB3 yMZ5kV9vAMFlWpI6NTjw X752VhLoiYYlJumzv3ye i0kshCn0JjOmMSHtztRg fWsmSVJ9q1RgPr44 T62aHGkbTNQgMCByFGUw SNFpiGvlbp1thI2hQp3+ MS6xp9ecuc73pG55uXX+ YRCoLOM3fGpsZMmn PQFajE7hMJptZxE6QNCb PuXexP43bCAwZRauPh6s hBrxfHhhMO1cUPOmgrry m636GtIps4qxIBAr dDZcQOiuBDO3L40ak7Z9 ZWYvXRLfOUP5zWH2mM5d bGlnbjogbGVmdDsgdmVy mYiqVIukZGsrV155 IHRvcDsnPlBhdGllbnQg UkRnWJx6P6AoJpq4AJAc gXmcER4svTTyKHkkRf9i eXgckOfeVV5tREMm ixmno118CsRwx7hdGWJk cVRuAJmkGPA2D24mw3X7 HLUjGMHuGZF9vIV5lM0y bGlnbjogbGVmdDsg ljOccAlzLHaePOsyK364 IHRvcDsnPkJpcnRoIERh vNO8PL56XN60oLEuu9M8 aXV0U2VtBGQobqro uwzllGW3ORUnYVAfoR55 Qq4twZhxYh5cSRCdDLJ0 RLNmtMAtP3SjcD9gSqPk RAWqAIYjD5AxgDEr HEpyP520KMndYfT3FHWk ozWyK5BbWQFwsWzlEgM7 b5T3Zr1MH2U2LA56IE56 tPXoj3J3sRJ3B6Cf AZAadjbumizlkEY8ISGa RFDizT60Er1abRloZz6y TSMrPGB4JPRdyBQxD1Cl wA4lHqJbCWVjUMIe M7WlgPHgIXccQ964WZoc IgY8OXSjpnUqV4QuSYCc pLmlCwX4i7P7Bm0ARGo7 UB93RG30aSFwg2W7 rWF1A1TxCZHfovmqgqmf mJO7OYJiHAKrwH40Vi2t yOfgMt0sZBJuNLI6DSWw oJDkF4KnfN2hKlDv YLBqPBKhW2MxvNInBIya G387LYvgXtH6RSTwxyOr N2FpUWEpbHooGpD2j9A9 Vv7PIINqCC21KJJ8 dQD8RU02XH53T9RhRrzl dGFibGU+PHRhYmxlIHdp ZHRoPScxMDAlJyBzdHls TI1rZy4kFVOaEKTy mTmeiMAhUoGew6rwZGXq UFciFO8vdWpoI6SlbNT3 NEKhu9v7Lb59L22bB3Sy dXA+DCPaqDD0cOR9 mY3hRvNpWoU8AFguD657 TiMffTQoQywod6ani1kt eQr4YfR3QWFhapWpxWli KSH9j1EsAb42A40v IHdpZHRoPSIxNSUiIHZh cEtpzr6nxI4pUk0+PGNv wDQ1wBG2yL9vTaYtLhX3 AXytT568VrMcwHSx Wjfmz2iwp5gmsEm2OzBh MKXzecKiwUvrGWE8a0Ke Ml05J0VanSdib0CyPah1 nv11tQGsl6S8rLZ3 F6DxDQTwoykhiULejAil GN9uHUObxcywZFVezC7e QUJkK8s6BsKhAmF0OIcy B2LvmnY7TFZfuYGs NDpnSXQ0M97zy8A1ZZLo NYJuRCI5lLT5jH1ioZev bjogbGVmdDsgdmVydGlj ULyeIPbuD929ZSBx iAsyEILlaA8nIFLdtMKw hZkfCJ5lVEZrqvkyPsjD YsSLJF9mUFyHNPHAUHcU MO4UA3vRKXL3R0Ik Pxx1ZSJkoRilQI0fkRDo ECovEo6zvNurcWdmHX8p WAEbpsflOMTleW4lQRMe cBQhsQakRF3wZEFy ncxzh898IwQxDQS0JSAy bQPfO4HxnZ1yYiEvRCTa JWTnW6HzhUHhAPjsC058 TNjyDfY8RZRihbHy O7JoRGGcyNptUkT0t2S8 Zk4tOI2uDW2cNCF3PZ94 TK08cSWvv3S8fBL5L0Gb ZGRpbmctcmlnaHQ6 KARzNLRszL62dJLzMYbv Lb6mz8J7x262ZANtQDYy dL49Os5ilTxmGIYevSOB fM9gvpvat1kzyksk TaRoLQVmVYd8LRo1KZUc oQszTvUjHQI4DqU1VAY1 kLGatN4eqLiopohbxH6t Oyc+MTcgWWVhcnM8 D4GyFsn6SISsbOalZC7a aQKiYBkwYo7kvQrtzOwd PO2jEUFhqrwfMDQjgE6d QUBnuMXwiRgiJK6h DWAddmrpq778WaEyLLI4 YXNdlZGjB0KgvW3qIpDb NHHuUACrY6NaeCMyODwd D048JFliQdT6REWr jhGyH7LkGKNinIieDxV3 v2Y3Jb9ROD8LSWR9Z4Vd Rvs5XAMuuFznSD4poISb XJvuPu9glUkolGbo EU3gNFLwjqdaWZVgmU1p OBOqcQFzbGvnAU3dKJBh xwjei383WhSxUNN0TVLo bMRbS4FtuP9aKsGt ENCuVFTtZ3CbbKRcFMnt S745JMwsPoO6FALxdlCb E7KvQSQgoDpfDlE6z0M9 Ig4USVuioSD+PC90 tb30P0GiSzcxEax9FLIb FJO6uTZ1yF1xZOAsUSwk m3I7qCE6S8TmeuXpbe7f f6eeIIAjRWpcY29b yKPal0S0QDQjcWD4TQIx uGveKjZviT02Szt+PGNv tOpoi7VdVhslo4xte5hi eCx3HlNuXTXghqFy ySwiQYW7c7IlSx73L63q IHdpZHRoPSIzMCUiIHZh hFsxlf9whW4iMp7+PGNv jYW6sQO1rI3nPqHv LxP3BDeuC374TdYrqUAh Ytjel1edn9avfZd7SyJu NBKkfcZphTbfRGA7u8Sj Xo34F4HpfXanx1Hi Pyd4rp21eUYif7F1aDY8 R7KtMIDbhjfurFIahQek XR8zNKXvcdfxNHAlzH1i ABHjH1e2KpBvEtC9 EEjpH7HuodM4SOYxzONm RSFfaVLPxC9olpblp1zm bjpaCyMmOAGdQEc8EDj5 LWFsaWduOiBsZWZ0 EkQ0OYH5aZPtrP2deTjx vhyagS6sLhh+KKj7s0ls aWXlID1inVH8VK90HV62 nCHek2A6rIH1A1Hv PEAyutldwfaeeBV7JNOt FPIntI26Lh3bsWulAl7c HEHrPTV0UGAdfLNoU6Po hH6sJiWgXWWoFYRs I8UvzDBtTSjrK193ZQcu FwA1ODCqmoYsC3SaSYSb eWvzNnS3l4C9Wt9PWF93 MN59ZO61aRAmv6U2 tTJ0A9UsCUVquyfoevrl aSN8MMMdIGJkeY33Gq8g uDokTn1oPCAgIMS0SEYs vNQlW9CdhL0aSeOe NHWuVJAjC4EtqWPgPFuh X561MVxcWwK7ZGBbtrCp T9AwROIbsYkmYwP6v2L0 Jt1UEx79DI98CM53 wVNzw4Z0nEE4B6QcDMYi vkpfoggekYC6UHQkBAVh zJ58Go3idHoeNg8yDUTc BVC3GBSnrTXhI8Vp oQ6qDuBzXYVeWHLeZ0Xa jOYqXLwaE602RNjpHtI1 APOsvrGyM4GqDXRyvRnw ViJ3r6L4Ln4SZZgc qql4B3KsGeqyxFR+PC90 GOAiRJ74hGOhkEBqp3kl tTg5GmDkQZZjLRI3iHnc IXapr3LsATKnB24e bGF (more content not included)... [facility] Discharge Instructionson Discharge Instructions [id number] [facility] ED Clinical Summaryon 2021 ED Clinical Summary [facility] ? Urgent Care [address] [place] [id number] Clinical Summary PERSON INFORMATION Name: NESHA LEE Age: 16 Years Sex: FEMALE : 2005 MRN: Acct#: Visit Reason: Medical screening exam; [facility] F/U LEFT HAND CONTUSION Arrival: 07/20/2022 15:57:25 Discharge: 07/20/2022 16:30:00 LOS: 000 00:33 Check In: 07/20/2022 15:57:25 Checkout: 07/20/2022 16:30:00 Address: [address] [place] [address] [address] [facility] [id number] PCP: CLEO BLANKENSHIP PROVIDER INFORMATION Provider Role Assigned Unassigned Kashmir Monique PA-C ED PA 07/20/2022 16:01:20 Ary Sarah ELECTRICIAN DECK Nurse 07/20/2022 16:03:14 VITALS INFORMATION Vital Sign Triage Latest Temperature Tympanic Temperature Temporal Artery Pulse Rate O2 Sat 96 % 96 % Respiratory Rate Blood Pressure /69 mmHg /69 mmHg MEDICAL INFORMATION Medications Given: Allergy Information: Skin Therapy PHYSICIAN DOCUMENTATION DISCHARGE INFORMATION: Discharge Disposition: Home Discharge Location: Home PATIENT EDUCATION INFORMATION Instructions: Follow-Up: With: Address: When: Return to this practice Comments: Aug 16 at 4 p.m. DIAGNOSIS: Contusion of left hand including fingers; Contusion of unspecified finger without damage to nail, initial encounter Patient Understands: Yes - Patient/family/careg iver verbalizes understanding of instructions given Comment: Normal [facility] ED Patient Summaryon 022 ED Patient Summary [facility] ? Urgent Care [address] [place], [place] [id number] PATIENT DISCHARGE INSTRUCTIONS Patient Information Name: NESHA LEE Age: 16 Years Date of : 2005 Reason For Visit: Medical screening exam; [facility] F/U LEFT HAND CONTUSION Arrival Time: 07/20/2022 15:57:25 Primary Care Physician: CLEO BLANKENSHIP Attending Physician: Kashmir Monique PA-C Comment: Patient Education With: Address: When: Return to this practice Comments: Aug 16 at 4 p.m. Medication Information: The exam and treatment you received today in the [facility] Emergency Department were for an urgent problem and are not intended as complete care. It is important for you to follow up with a doctor, nurse practitioner, or physician?s health care assistant for ongoing care. If your symptoms become worse or you do not improve as expected and you are unable to reach your usual health care provider, you should return to the Emergency Department, we are available 24 hours a day. For those patients who have received Radiology results, the interpretation of your X-ray as given to you by our Emergency Department physician is only a preliminary report. The Radiologist will review your films and if there is a change in the diagnosis you will be notified by phone. Please make sure you have provided a working phone number so we can reach you if necessary. In the event that you had a lab culture while you were a patient in the Emergency Department, you will be notified by phone if there is a need to change your antibiotic. Please make sure you have provided a working phone number so we can reach you if necessary. [facility] Emergency Department has provided you with a complete list of medications post discharge. Please inform your infant babysitter/provider of your visit and for further instruction on these medications. Any specific questions regarding your chronic medications and dosages should be discussed with your primary care physician(s) and/or pharmacist. Visit Information Visit Diagnosis: Diagnoses This Visit Contusion of left hand including fingers (S60.222A) Contusion of unspecified finger without damage to nail, initial encounter (S60.00XA) Medical screening exam ([id number]) If you received any narcotics, sedation, or any other medication that causes drowsiness for the next 24 hours, unless otherwise directed: ? Do not drive a car. ? Do not operate machinery such as power tools, lawn mowers, drills, sewing machines, or stoves ? Avoid alcoholic beverages and drugs for allergies, nerves, or sleep ? Do not make important personal or business decisions or sign any legal documents Reason for Visit: [facility] f/u appt Allergies: Substance Reaction Symptoms Type Comments Skin Therapy Environment Vital Signs: Vitals and Measurements this Visit (last charted value for your 07/20/2022 visit) Vital Signs This Visit Peripheral Pulse Rate: 60 bpm Respiratory Rate: 16 br/min Systolic Blood Pressure: 103 mmHg Diastolic Blood Pressure: 69 mmHg SpO2: 96 % Oxygen Therapy: Room air Measurements This Visit Height/Length Measured: 180.34 cm Height/Length Dosin.340 cm Height/Length Estimated: 180.340 cm Weight Measured: 78.02 kg Weight Dosin.020 kg Weight Estimated: 78.020 kg Body Mass Index: 23.99 kg/m2 Problems List: Problem Onset Comments No Problems found Major Tests and Procedures: The following procedures and tests were performed during your ED visit. Laboratory Radiology Cardiology Viruses or Bacteria What?s got you sick? Antibiotics only treat bacterial infections. Viral illnesses cannot be treated with antibiotics. When an antibiotic is not prescribed, ask your healthcare professional for tips on how to relieve symptoms and feel better. Usual Cause Illness Viruses Bacteria Antibiotic Needed Cold/Runny Nose NO Bronchitis/Chest Cold (in otherwise healthy children and adults) NO Whooping Cough Yes Flu NO Strep Throat Yes Sore Throat (except strep) NO Fluid in the middle ear (otitis media with effusion) NO Urinary Tract Infection Yes Antibiotics Aren?t Always the Answer www.cdc.gov/getsmart GET SMART Know When Antibiotics Work U.S. Department of Health and Human Services Centers for Disease Control and Prevention June 2014 [facility] Urgent Care Note- Provideron 07-20-2022 Urgent Care Note- Provider Patient: NESHA LEE Age: 16 years Sex: FEMALE : 2005 Associated Diagnoses: Contusion of left hand including fingers Author: Kashmir Monique PA-C History of Present Illness OCCUPATIONAL HEALTH FOLLOW-UP Date of injury: 06/14/22 Claim #: [id number] Employer: [employer] Mechanism of Injury: Smashed finger/hand with dough and bowl Diagnosis: Contusion of left hand including fingers This is a 16 year old here today in follow-up for her work related injury. She was working for [employer] at the [employer] [place] on 06/14 when she was carrying a bowl with dough and the bowl dropped onto her left hand. She stated that this was a very large, heavy bowl that requires two people to transport. After this happened, she was in too much pain to continue to do her job so she states she was sent home 2 hours early. She was already scheduled off the following day, but when it was no better the next day she was seen in our ER. X-ray was non acute. She probably overused the splint because of the persisting pain. She has been performing light duty work. With her continued complaints she was seen by ortho. They agreed associated symptoms are likely from overuse of her splint and have given her ROM exercises and recommended OT. She is noting improvement with these exercises. No fevers, chills or malaise. No other joint pains or myalgias. No numbness, tingling or weakness. No skin rashes or lesions. No further ecchymosis. There are no other associated symptoms. Movement still makes it worse. Nothing else makes the symptoms better or worse. Symptoms are described as sudden onset, moderate in nature and persisting to some degree at the PIP of the fifth finger. Health Status Allergies: Allergic Reactions (Selected) Unknown Skin Therapy- No reactions were documented.. Past Medical/ Family/ Social History Medical history: Resolved MRSA (methicillin resistant staph aureus) culture positive ([id number]): Resolved. Comments: 05/29/2022 EDT 8:05 EDT - Em Hamilton 05/25/2022-Wound Culture-Abscess Armpit R -is positive for Methicillin-resistan t Staphylococcus aureus (MRSA). Please place the patient in Contact Precautions.. Surgical history: No active procedure history items have been selected or recorded.. Family history: No family history items have been selected or recorded.. Social history: Social & Psychosocial Habits Alcohol 06/28/2022 Alcohol Use: Never Substance Abuse 07/06/2022 Substance use: Never Tobacco 07/06/2022 Smoking tobacco use: Never tobacco user Electronic Cigarette/Vaping 07/06/2022 Electronic Cigarette Use: Never . Problem list: Active Problems (1) No Chronic Problems . Physical Examination Vital Signs Vital Signs 07/20/2022 16:12 EDT Peripheral Pulse Rate 60 bpm Respiratory Rate 16 br/min Systolic Blood Pressure 103 mmHg Diastolic Blood Pressure 69 mmHg SpO2 96 % Oxygen Therapy Room air . GENERAL: Awake, alert and oriented to person, place and situation. Well nourished, well developed, non toxic, NAD. EXTREMITIES: Still with some TTP at the PIP of the left fifth finger. This is improved from her initial evaluation where the entire finger and fifth metacarpal was exquisitely tender. No further soft tissue swelling. No further ecchymosis. No cyanosis, clubbing or other edema. Good muscle tone. Still with a little bit of difficulty with full flexion and full extension, secondary to pain. She prefers to hold it in slight flexion, versus the tight and full extension that I noted previously. Tendon function is in tact, but movement is still with pain and hesitation. There is brisk cap refill distally. SKIN: Normal inspection, no visualized ecchymosis, abrasion or rash. NEUROLOGIC: Light touch sensation in tact, strength 5/5 in bilateral upper extremities. Normal mentation. No focal neurological deficits appreciated. Medical Decision Making She has seen ortho, who has recommended ROM exercises and OT with a recheck in 4 weeks. She has noted some decrease in pain and increased ROM with the exercises she has started at home. She will continue this. 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 Return with new, or worsening symptoms, or symptoms failing to improve as expected and the patient voiced their understanding. Questions answered. Follow-up here as scheduled on 08/16 with plans to return her to full duty work at that time, sooner as needed. Impression and Plan Diagnosis Contusion of left hand including fingers ([id number]-CI S60.222A, Discharge, Medical) Plan Disposition: Discharged: Time 07/20/2022 16:27:00, to home. Follow up with: ; Return to this practice Aug 16 at 4 p.m.. Counseled: Patient, Regarding diagnosis, Regarding treatment plan, Patient indicated understanding of instructions. [Electronically Signed on: (more content not included)... Normal [facility] [address] Urgent Care Record [facility] ? Urgent Care [address] [place] [address] PATIENT DISCHARGE INSTRUCTIONS Patient Information Name: NESHA LEE Age: 16 Years Date of : 2005 Reason For Visit: Medical screening exam; [facility] F/U LEFT HAND CONTUSION Arrival Time: 07/20/2022 15:57:25 Primary Care Physician: CLEO BLANKENSHIP Attending Physician: Kashmir Monique PA-C Comment: Visit Diagnosis: Diagnoses This Visit Contusion of left hand including fingers (S60.222A) Contusion of unspecified finger without damage to nail, initial encounter (S60.00XA) Medical screening exam ([id number]) If you received any narcotics, sedation, or any other medication that causes drowsiness for the next 24 hours, unless otherwise directed: ? Do not drive a car. ? Do not operate machinery such as power tools, lawn mowers, drills, sewing machines, or stoves ? Avoid alcoholic beverages and drugs for allergies, nerves, or sleep ? Do not make important personal or business decisions or sign any legal documents With: Address: When: Return to this practice Comments: Aug 16 at 4 p.m. Medication Information: The exam and treatment you received today in the [facility] were for an urgent problem and are not intended as complete care. It is important for you to follow up with a doctor, nurse practitioner, or physician?s health care assistant for ongoing care. If your symptoms become worse or you do not improve as expected and you are unable to reach your usual health care provider, you should return to the Emergency Department, we are available 24 hours a day. For those patients who have received Radiology results, the interpretation of your X-ray as given to you by our Urgent Care physician is only a preliminary report. The Radiologist will review your films and if there is a change in the diagnosis you will be notified by phone. Please make sure you have provided a working phone number so we can reach you if necessary. In the event that you had a lab culture while you were a patient in the Urgent Care, you will be notified by phone if there is a need to change your antibiotic. Please make sure you have provided a working phone number so we can reach you if necessary. [facility] Care has provided you with a complete list of medications post discharge. Please inform your infant babysitter/provider of your visit and for further instruction on these medications. Any specific questions regarding your chronic medications and dosages should be discussed with your primary care physician(s) and/or pharmacist. Visit Information Allergies: Substance Reaction Symptoms Type Comments Skin Therapy Environment Vital Signs: Vitals and Measurements this Visit (last charted value for your 07/20/2022 visit) Vital Signs This Visit Peripheral Pulse Rate: 60 bpm Respiratory Rate: 16 br/min Systolic Blood Pressure: 103 mmHg Diastolic Blood Pressure: 69 mmHg SpO2: 96 % Oxygen Therapy: Room air Measurements This Visit Height/Length Measured: 180.34 cm Height/Length Dosin.340 cm Height/Length Estimated: 180.340 cm Weight Measured: 78.02 kg Weight Dosin.020 kg Weight Estimated: 78.020 kg Body Mass Index: 23.99 kg/m2 Problems List: Problem Onset Comments No Problems found Patient Education Viruses or Bacteria What?s got you sick? Antibiotics only treat bacterial infections. Viral illnesses cannot be treated with antibiotics. When an antibiotic is not prescribed, ask your healthcare professional for tips on how to relieve symptoms and feel better. Usual Cause Illness Viruses Bacteria Antibiotic Needed Cold/Runny Nose NO Bronchitis/Chest Cold (in otherwise healthy children and adults) NO Whooping Cough Yes Flu NO Strep Throat Yes Sore Throat (except strep) NO Fluid in the middle ear (otitis media with effusion) NO Urinary Tract Infection Yes Antibiotics Aren?t Always the Answer www.cdc.gov/getsmart GET SMART Know When Antibiotics Work U.S. Department of Health and Human Services Centers for Disease Control and Prevention June 2014 [facility] Billing Authorizationson Billing Authorizations [id number]#1 .[facility] [id number]#1 .[facility] 07-16-2022 Provider Orders [id number]#1 .00[facility] Coding Summaryon 07-12-2022 Coding Summary [facility] ZfhvagurISe5oGw+PGhl YWQ+NO5UQNPwC52byXGl sU5YY9hCHK6PKSZMIULX VJ2RLA9vvHD6ZSamD5Bq biAv ZeaavUBcZI24DAc0IHX2 yRmhYBrgwN2suVWlT2m3 GyDpHQ74wR94XLgkFHRg RiZ2OqKcgzevdAIl P4ytDkHyeLPoNry+PHRh YmxlIHdpZHRoPScxMDAl CgXfkMniMY5sZo0iAGRb LWNvbGxhcHNlOiBj s4reTCUeABgvXI8yaDct Q2UufZY7NOLzb1q1Sc22 dHI+EYNeESL1zYfpGAvy y227AgHer8ceCGQ8 dFGkDWefXJQ7C83jw2J0 XHIjVEZyYIX0bCI1hF1d jHiwvyszS1LqtVZxMfA5 OIF2nNYfhY9boWoe nahtwY8uQfp+N60EPN6H LAILEQ3GQiw5O6GtTckj dHI+NX41BWKbRS95xCGo jHIei2jjgZn8GqIp WNSqXFM4rQvqDFhnu8Vz TGDaM07vlUDrb1Y0GPTy qPiskIEpZlLyjGC4kK1g RTfjleifz8sjzcad Tppoi1ijgx45hY24E09w FEasZRGfRIG4KAQcISXq xSashi9giL0mRn9+IDxj x1vjc1renDk7SzJs TVZgjqSncDpzNLM7y7Ti Kg92M5FlfLwtj1ExYtx9 tu76zYHnk4C5gPL2GZjg PAPgjF7bAWriAkS4 MCLyMkCcuL39xAKmYUcs Jb7stJrgyQikVR8mXOVh glyfFSEqvS1tSBWodQGm aHntPK1uLPIoqdnm w695UqSsKXU1DGJxfJJx A6MkmP5eJnBtFJSyKUAq O0OeqORxVLwyW672ZLjw GtB9SRZntbTmV2Rp EECtbVdpDxI9i3Z8Zl6S m4WrmxyiLII2AEnyXPQ1 YkCvLbDyPjP1M1VzLqt7 GVGrsGbmKX5qH5Eo MPRiijccpjfnaBA3KERo QXJpwO79zELgNBilGw6q a8S3z191RNCiVCFoyR31 Iw3bfCltAKBitIII zD6iduxem0wdhrcwHwDs YYWyUKz1EOb4BAJhvQgx FfOgLKM1PcZ4NAR0jPEg uC8niDgaktodsZ1v Oyc+Z80yqX9aYCM3QLC7 shkyZANgvrLuEW85CV62 P5NeNfyrcZVbjVT+PGRp idCyyHrlBN1bBiXg i8png4SwYPmmN6JrVQBv UVtcNzu2XNNnVFF1jZT8 uA5oBRXqEZtse5D1eSH3 M8PcnxWmbf7xw8wi KFXbBRbwA28jgPMgm9O3 UVXkaSC3CKXiiJbzXrDv zM60Mhg+CVCnhJurl9Rd Lgvbh7mrj9vpyCy8 IjMwJSIgdmFsaWduPSJ0 y2FaHi93W67qAEraLUJo UQKwHCSkJVPscUperu0g hX3bOp8+PGNvbCB3 uUF1tD5gMLXfZgL4ICwh R045NiFbqBFjWorqk6jp b0vlhSn4HeYzTUOzppSr lCmdWZO6o2LjMb49 R68qJUvxNNYgLODqQPUb YONbbIdona8ybS1qNn5+ LG8kw1xrud22bM55rFT+ MXKiMZE1wGwoXGgi IODaeM7eCZatPhO3ETKb KrYpwD23zFBcNUmtHb4q bDgztZfiZX1tWETepytr f385MuWvi7omZMGe lGTeFHfeAQL8N27so5N7 GJYoPIPbTWE0qUP9eX8y bGlnbjogbGVmdDsgdmVy zGjkSVxiUKdjZ029 IHRvcDsnPlBhdGllbnQg NgVhASb9V5LgXla5JCHt jTlqUU4pyDKgROnbBv3c tByuxNgeFV3jMJLx rodou795UeKxj0ytKVWo cUXoXTuqMNZ0J17ds9P0 QHWsZJJxULW7hRC4rW1e bGlnbjogbGVmdDsg hwAwiDefSSqdQNjgW388 IHRvcDsnPkJpcnRoIERh dZD6WZ02NT23yCUcd3Q0 rGD7C2SxMVGzezod kjkwrBE8DCArWYMamW53 To7nvGvnQq0uPFCsNXM1 DGZyhZTzM6VwdE1iMxHf QJMuIXAdQ0YmyYUz ENxoL773FRwmFpC1JNHl yxJoS3MwESPkwMynChA5 j4X0Zk1JQ2K1SX39XM44 kABjb7W8rSB4D9Sh IZUisndpzgbqgCL9LEWl SEMuwE22Id0gzXizCp6q FFYsTZW1ZPQwfYFeM3Yf uL5nUrDeAVEdONBy U4NavYKiWGqjP216DCpw DoJ1KUYaizQnQ5LrEEGh tYebOmN5x9T3Mf3TKXn3 MN82CU60oUUen9O5 yHB3Y2SkVZVlqompodsb dYD2UJMaFLWpkZ14Qo6f tUbmWg8bCTKaHTV0YKYj vJRhU8TfxK0cYdAz VOFzYSFsG1QmeGUcVYat B878LQauSjD7ISRymaEd V8IjPPYtbUeeIaT4l8G1 Te0FHCZpLX46ADZ6 hAB9JC56VF65R7CcRgrp dGFibGU+PHRhYmxlIHdp ZHRoPScxMDAlJyBzdHls GW0yYd9lGDAwFTVg xYulvIDaMlBqx8zfXGZq VQhxVL7ezHpmL3LnwDW7 INLhk2o6Ty76Q57sG0Zo dXA+KTRceYQ3jHB3 rU0gQwMoVbX1KBgeK198 IcHyiRMiWmsul7ona7bw kBh6KqT2SSWainKvnIej YCK0w3OdRw93I58a IHdpZHRoPSIxNSUiIHZh wFrveq8uhS6aKa9+PGNv zLE8vOK9rS9sTaZsAtE1 SRuzG625VjWcwGSw Scdxn8yhz5wwfGb7OmQn YXOeeaXydZrfFAU0u5Iy Og94D3VzpZqds2SvNcg6 qa05mBRza7Y5iMY2 O2FuHGApmjzdeXWjfTky GW4nGYGnwkumMVIjjP7d GAJyY6d2QiQlBkL3PRjx X1AsjmH8MQAvrLDn YKmbNNT6Q24qq7E3RWJb BMEuYQR1pNF5tG4buZve bjogbGVmdDsgdmVydGlj QKplYVqxO674HZJa lLikYXHhhV2fUSZftVMt dPigPS2eULWdqtijXzdY EiKIMQ5zAXxSLDOYGHpD OM8JG6lFOVV1H7Jl Ycc4LOLlaOclOR4goKKv MPujIy2dlAneaIrwDC1w GGXxjakfLQNqoA8pCNEj qUHyqPtlVS8uCYPa kwcoh537OsInTER2JCHl wBOgV6IrwN4hHcSqOCFk HTStD4UskOWlFBgvK075 JSrqTkB8WBUibdZl X8XhGNTjqZfxInZ8q0O7 Zt8mUI5qUX1oBPD4SB69 ZT54dNUdy9D0wFA6L0Dt ZGRpbmctcmlnaHQ6 UXAcPILqxE39cGSyTVyg Ni5ek8W2j158AJVxUOCo lT46Ih6szSwcQLGlyRZC hH9ercram6wenpad BeEmYSRgNSs2EVv6DVDb hTtxRkGzXEU9YbE8GNR8 lJJurG9axOwqrecvwH8z Oyc+MTcgWWVhcnM8 C7BdHtq6XCGnuUfcJO3p nQNrGYioXe6onRsghJqf WC6sVEBtnrojJWFzyV1f XZCjnSIlfXukRW1h PXNzesklm488EiVrZSH7 ESEkzCCuV6NeyQ2xMwXj GRMeCTVjI8YyhDXuCXgp Q449BTpjOqI2MXRw xyFvS6RdHTAgsElaRkT1 e1W4Ai8COB9OUPN4H8Dl Lsh6WZSroHdxUR1fvXCw FEbrTj4ifKhahUpk YT4tUCVapkgkLFNwdM0a IBGpmMBvoHxeHJ3jENAv ktqur695EdJfJAT0WDTt yDIqZ5GhyU5gQvZw CXByWBEpJ3QmrQPsXEaf Y489IInvNjQ6FKDoqoAj S8EmNHKicDjcUhZ2s3K9 El9HYAfcnTO+PC90 xe44U8ItKaugVrd8AAOx LMZ2dMW5gE3gRVAsYGxn c6E7sJM4E0YjdpBwru0r d5nnYXHsKEeeD92i uWVar7L2YHZilUA7IJWa uDajNuHweH06War+PGNv vJibb2QoIyljd6gnk9wj qBy7LnJpRGJoqqFg bIjkJKM7j1VhZf36L77u IHdpZHRoPSIzMCUiIHZh tWwmzh6dsZ1pJb5+PGNv qMN8nIL9cW8lChKl XuW9CCkbE200PmTpfRFn Qixtd9wwv6dziDj4LsUc UVLmcpOzqDmoKUO5f3Ff Bq25M2YqsHdnu8Wj Ufa8jn68tJUeu8B1sXJ0 N8MrYLRxrrbunCIpbHme YV4hPBMivslgGNEbuP5a RAWwF7d9KxEeOzO7 QJvxW7NgulW5LRRhzPRd ZUYzdPERlY3dsygmv0ur fvbgKrKrPPObEBb2JEq9 LWFsaWduOiBsZWZ0 TaU8JNW2nEIjvW9kkTzb hpqsvS1iQpz+OLt0t7us yHBjGI4mzJO2IB72WJ05 xXTwi1S5eJZ9S4Em FANdbxdlpkxvuQS6ZUAp BYGlmE44Uu6ljLrqSo0t BSZvBVN0DNSusUSsW7Wc pC0cJaKpXNOlJVQj X4MbyJZkZAasQ363QFep GjP7YOWfuvNeZ1BnRYZh xQmaXlO1c2C4Jc1WXW47 EZ33HO96sODnn9E7 jCI9G4TcYQCdhorcekte uMT7AHXfOMLvlK83Yo5c nEzhIa0zKAGsBIE5AHKo dGMbQ2YiyV2nHoZf LVFoBDFdA6ZdqWZqYLer X564NOjtOrX0ZQCejtEs Y3OvSSThjNuxFxA3i5M9 Qk5QZu72HM95OZ54 tDMlw2M5sOB8D6IgRRNu hzrwqbihaOR7RPZdYDUk aO36Rs0ouWuxLx0gECYv DJN7DZUysLIgS1Yz aN8eNrZzXVEfKLQoA2Lo dLYgRCzaP628XNdsSaU0 FWPwadSyU5FvKCDgdRlj AzK9x1Z3Ko8WUIww oko7C7PfDiecjCJ+PC90 ZBUvKZ69rEHrkKIao1mc jCl7RcPcCQCiGAI6fAhc QSdim4YvHDNyO77t bGF (more content not included)... [facility] Provider Orderson 07-08-2022 Provider Orders [id number]# 1.00[facility] Coding Summaryon 07-07-2022 Coding Summary HTML[employer] 64 VbdugtyzZHw4jEx+PGhl YWQ+DT0HSAQsF78anWZy eV8VF3yHXY3YZVVZFDJT WQ6WKY3qeLK7LXyuS2Jn biAv TarezMZlVR39ECh9WRQ4 oQmcPBnhjD8ipJUfA2z0 QuGcXI07sB13GVvySNHn WvJ8MnVjscjntOAz N3enTiNjmPLqUlz+PHRh YmxlIHdpZHRoPScxMDAl OkCpkJmdJC1tIj5hBOFr LWNvbGxhcHNlOiBj e3rmBUKbPZaaVG3suGhn C7TyyFO5JNEjn3x8Wi94 dHI+XPQdWXM6aEawXDqc d812YpQzl9abEIG0 oQJgTLmbOWC1E91jv0V6 IHXfWXRuDWH4rEU4dM8t vLozacfkV9BcoXEvLoK2 BDA4mGHsdO0beDnh ufjgxB5nZau+L81AUE5F CQLARZ3UQiv1B6RmYdsw dHI+RU11IUBtXR70lBKp qGQxq9mkuWf3JeNi SMXnXDS7gWcjBKric4Iw WKYtC64drYZsl0J2TOQb aAnunUCrJtYtyNK6hG1e MAulkmvyg3eoraqg Oabei2ljch26kX17K17j NKsjFTLkUKJ1OTTfAAZw fQdjiy9jnC7cFc8+IDxj l0tjk3ubcSa5FhKb QOXxglHlqOpqMTJ0v0Xf Nt93N3KeoTypx1TtHew4 ts47kGRow2N3sOQ3UXdn KPYgnJ7eQGzlTeI3 VUYcVrIzgM17zJGkWAcw Kr1vnGitkHgkXH9yIRTr fathALIdzZ6uQYMlwZJf hCqjEN1kLRPbrziw g060EbJgIBF9LTRmmDSk J6SivV8rUnXtLDUhQTOx F0WpeVJpJQpcH198NCib PfA1PXIfgvYxM8Gv JMGqjPgoGeF4u8Z8Fl7E t1OzwcksLJW2KRzcNJF0 MaI0AgWoGyL6R1JfIlj4 ZEYhlBufYZ6dB4Ng MVDvmelspzlquLZ4IGKz QWRyxG42yZSrYMrnFl5g h8G6i454ZRCnTAZwoQ48 Oz3vaNwbJTEgbBWY hR6vhruhz1vnfsyuPjUq HCHrQGd8EYb2LETtsPqj QlYaUAE3SkN5RSC9tITz tZ3voUpalyyroK0d Oyc+B80otE3pSCL0PWC8 vnlvRFZkeqKhBF05SY49 C0IiIordmWKyoEG+PGRp rbZskWtpAV1oZzVb a2mls7RdLZwcL4EfNTQh BCzdYem2TNYzOHL7hNM4 pT2xFVBaXXabn0L9rPC0 U3BcyiNhjr8rr8ci VJZuWPecB51esMQer1O4 MYAisYR6MRRpmUnpYeEn rA86Fld+WPQqxVurl9Pk Abeib6gtw2karJe9 IjMwJSIgdmFsaWduPSJ0 r4DnOl94B40aJMirYZJy HMLdCMGbLOTjwUrzcv1y rS1uUq0+PGNvbCB3 mDR3dN0qHMUbGqU3THad T564QeKalKTdKtbhm5bc n7hqhBy4WcEhSELbgzIr mMesNLF0c5TrUg34 M13rHXgjJMEkNBTzQAHa PLPtoPgxra2zcF1aMh5+ EJ7uz7pxbr79jZ35eEP+ HZLxKYM8hOshIGan PRZgaE2tAAiuReB4ZYFa AiGalD26fRVoETifLp5k iEcsePnnBO5wLHXfoxdk x889FdEzt6hpWPXe aRHgSJqfYLN2F17rg0U7 BNSrKWYmGKI4yZH3zN6b bGlnbjogbGVmdDsgdmVy nZcuUBjhSKkbH085 IHRvcDsnPlBhdGllbnQg ReRjHQi8Y5WzEzf8VQNp lNngJF0jaSKzRIssZm3d mPphbGlfVQ3nUCYt ozbty389OeWdn1hdAPOh zWEzHQmlLDV5W76yd1O7 GLVmKRNwQQD2kGA5tJ4r bGlnbjogbGVmdDsg adTnmZdoQClaOIuzY288 IHRvcDsnPkJpcnRoIERh iCY6HT51PZ46pEAwf3M0 zGI4F3UwYIKnwmms cdlnaDU5UTOsLIPvdJ22 Tj3goHpwOf6wKGTkGGG9 PXYwcJYjQ4RbnA0tAhFm CBUmXZNoV7LguJYk ABlcJ186TDybLsJ7VIXv xsKfJ0RgIKHkvKgwExT3 l6L1If5JM8V7XW18PX34 fYIkg1P3pNI4R3Tb DNCuyjkwonaipND5QJAb SORrfF26Gn7jtCauGp8o YQTnOIT0LWVecLBeL7Zc rX2kBdHeALBoNJDd B8TvuQGrXKhuS067VWhm AzG4DNHipzZlR8PwFJEs kPnvXwT9b2Y4Fj5YSYe0 JG80YO29xDDln0T8 xAE8B5NeOHKpaidbntqm xTG9OTUwXZPxdH78Ap1m dPrpOd2pUWQzILE6OGOj vCPcQ6DtxX3pQlUs XNArPSSwJ0PbpMAuYTny P815LZzcEnG4XZAqstAb R9PsUNBfsFnaDuA0p2A6 On4DHHJvTF13XRI0 pPZ4LF04YM44V3TbGjzy dGFibGU+PHRhYmxlIHdp ZHRoPScxMDAlJyBzdHls SD5iTv6eBEFqQVMx qChxqWHcNoEss7sfUSHc GNtvES0ooTylK4EcnUL6 IIUsp8z7Ek71P52gB5Fl dXA+KHRbcZJ0lGJ5 bC2qYsPqUsZ6QSdcN598 XyHvwVHmGtfqj3csd2hh dFr0AdJ4BPJkwaWkfMne FMW2g6QjAg63G51g IHdpZHRoPSIxNSUiIHZh fZpmnx1emC2tTy9+PGNv iEV1uYK7tF9jDsHgBoA1 VTaxX646ShAqxGMm Pzcts9qxa3hunAw7LwEv OYUhcbPecXbbGOS7j7Qy Mv17I3AyzDtjp5UcIsv6 yl30yTCfx5R4kPA7 P5HyXFUnnvuveEJptRtb VZ7bMSFeuazpEGFyyE7d RTEiY2l0XyBwAuN3UXpf W5FcebP7WVGtoXOe NZyvWGU4H08xw0Q6YOKu KHKhXFA6eVQ5iW0fyCgc bjogbGVmdDsgdmVydGlj YSmmDPcfK369NKEr vGtyYOYxsD0hXYFgkDQw uJtiYI0qRCUogipeOrtK NpJLGS0kWLnKXDYPOYtO KJ3OE8yMRUT9U9Ox Nyn9RCRnrMqaML6nbFCo BJrsKo1wrYsluMqgSM0e XNSfavaiLIRjvX5lPMKh gWLcsTveBF4tMDHy szxtp101JiGaFMT3LVOo vYFxV9RmmU2zNfSuRQMq MGMmS7LsdIPmSKoxT932 GWbcOzT2QVWbxbFs Q9HfEKKamWzqLiB3u8S9 Nh4tWW2iWJ7hDWC1SA12 CG75kDJiy7D8iRA6I3Gc ZGRpbmctcmlnaHQ6 UYKfVGYtpL05jFQsJBis Xf6ee9J2c161QGPkFLRk vU71Dq1huShrXJLxvZTP uA0dkusgo5cdolsb WnPbSBYtSRq9POw6JPYd sXbjPcQpSFH8MmI6WRU0 uOQfuY3xaIycytabcY6r Oyc+MTcgWWVhcnM8 T0VeQod5SADvwPbjRX3t rOMdWZcuIt8wnDyysUpb WL2sJNRjcjpkJTSyoB6s YFYhvXIqnGgfND0z TTRemgxgo432NfGnMYR2 AWWjmKBhL0FcnW7vUcBv FMOmMYLoO5DjgLHeVHyg Q511WSmyTpL8ZVTj dxWfV6VhUHLgmKfwBpH1 e7Z3Qb4ZUX2HFPZ2T4Mn Ynj9IJWcsXsrLQ5vuJKo WXisSe4nwEeraFgb RA1mUAAaihahHRFmyR4b BJMsfSOasUewHK6uDUMd fwwgz004YaOuKIR3NQQt fQKwB9FyyR2aRxYu LVXmNGWeI8NjeXGpTMfp P657FPzhGlT8EGVdkgOu W7XkIGVceYpaRmJ4b9B3 Jp6VRGmobXE+PC90 kk83I4FmHcpeEhe8YMZc OLA7aNQ5eX5pCPDbISrl l7Y8qUX2S6LfnjUivk3x p9uvFHGkXNyvQ20m vPKjj9Y4EOQhiPT3FKXc tQfwAwDmgS06Pxn+PGNv eEsnp2MgUlths7wku0nc iAp6BpGhXITqksZf vWheNTX1h6TaUo00V68b IHdpZHRoPSIzMCUiIHZh cMlraf3gqR3xJn1+PGNv kCS3mQN9eG9gRmRv RgD3VMwcB629PqRsyQEs Slqlz3biy1dmfGv2BrLd KGTdwyPgaKpdMVP4u5Ra To05Q9NquUefs1Wr Dxa7tp61zZEru1R2sYN8 Y3YzMKOzrnjjcVKaiPep RD4nEIAmwkizYFDffW2d JOZeO7t1GxMsUlA8 KYonQ4AlmyX4TQCmyNJf IGAsxVPIaF3uuhxwj0ie jlguNoIuPCMnGCm1CJn9 LWFsaWduOiBsZWZ0 LzL4UTV3nDEqrW4fqNaw xhckrC9vMtc+LUw2t8bw sQJhCM1yqXJ1HJ80LA48 dKUwy3X8iHS1D6Bq PVNmereplagnkXX7GKUl NMDxoN98Em4uzXnzFg1m QIExLPY1YFZrzYCnL4Iz eP8rTjAdEMEiHNQe I3QgbXTsINhaM610FDoj ZxI2CZOyocQlW6OtEEOr pWxwToR2l8Q8Qm6AMO89 RB39YG41jGItg3L9 rNJ1B5VoBUCckxcmtnpr vKJ5XCJwJBEvhW13Jq5z jDvaOw3vMHWhCZJ2KCSh rUMhE1YsmG6xPfAn IEScCZHoY6LhcUVaFSci Q704BXazXsX0DMUwalUm D6GmXFGmsVpqNoS8e9N7 Fp6KTx49GC89US53 bIQno7F6vED8X0JeEPIi iazioltmyOW3UFGpVMYq wJ88Kl2unQmcOx2xXNXx YPJ7ERBcrPJlX7Qu pO6sLvPzZVZgUVHbK1Bu pRYdNBhbM775PMtdLzG6 YJZzjiEhZ5OmHNLfjBqt QhV1m7U1Bl4FKSln tru7E0FtVzmzlMV+PC90 UFXxQI87dFDwkAJti0fk zUg3CiSpRVVwQGR8vOvu NOjfe7YhRNWgW39v bGF (more content not included)... [facility] Discharge Instructionson Discharge Instructions [id number] [id number] [facility] ED Clinical Summaryon 2021 ED Clinical Summary [facility] ? Urgent Care [address] [place] [id number] Clinical Summary PERSON INFORMATION Name: NESHA LEE Age: 16 Years Sex: FEMALE : 2005 MRN: Acct#: Visit Reason: Medical screening exam; [facility] F/U LEFT PINKY FINGER Arrival: 07/06/2022 16:04:05 Discharge: 07/06/2022 16:35:00 LOS: 000 00:31 Check In: 07/06/2022 16:04:05 Checkout: 07/06/2022 16:35:00 Address: [address] [place] [address] [address] [facility] [id number] PCP: CLEO BLANKENSHIP PROVIDER INFORMATION Provider Role Assigned Unassigned Kashmir Monique PA-C ED PA 07/06/2022 16:08:18 Tim RN, Verónica ED Nurse 07/06/2022 16:08:31 VITALS INFORMATION Vital Sign Triage Latest Temperature Tympanic Temperature Temporal Artery Pulse Rate O2 Sat 98 % 98 % Respiratory Rate Blood Pressure /74 mmHg /74 mmHg MEDICAL INFORMATION Medications Given: Allergy Information: Skin Therapy PHYSICIAN DOCUMENTATION DISCHARGE INFORMATION: Discharge Disposition: Home Discharge Location: Home PATIENT EDUCATION INFORMATION Instructions: Follow-Up: With: Address: When: JOSELYN PATEL [address] [place] [address], [address] [place] [address] Business (1) Comments: once approved and scheduled With: Address: When: Return to this practice Comments: Monday, Jul 20 at 4 p.m. DIAGNOSIS: Contusion of left hand including fingers; Contusion of unspecified finger without damage to nail, initial encounter Patient Understands: Yes - Patient/family/careg iver verbalizes understanding of instructions given Comment: [facility] ED Patient Summaryon 022 ED Patient Summary [facility] ? Urgent Care [address] [place] [id number] PATIENT DISCHARGE INSTRUCTIONS Patient Information Name: NESHA LEE Age: 16 Years Date of : 2005 [facility]: [id number] Reason For Visit: Medical screening exam; [facility] F/U LEFT PINKY FINGER Arrival Time: 07/06/2022 16:04:05 Primary Care Physician: CLEO BLANKENSHIP Attending Physician: Kashmir Monique PA-C Comment: Patient Education With: Address: When: [address], [address] [place] [address] Business (1) Comments: once approved and scheduled With: Address: When: Return to this practice Comments: Jul 20 at 4 p.m. Medication Information: The exam and treatment you received today in the [facility] Emergency Department were for an urgent problem and are not intended as complete care. It is important for you to follow up with a doctor, nurse practitioner, or physician?s health care assistant for ongoing care. If your symptoms become worse or you do not improve as expected and you are unable to reach your usual health care provider, you should return to the Emergency Department, we are available 24 hours a day. For those patients who have received Radiology results, the interpretation of your X-ray as given to you by our Emergency Department physician is only a preliminary report. The Radiologist will review your films and if there is a change in the diagnosis you will be notified by phone. Please make sure you have provided a working phone number so we can reach you if necessary. In the event that you had a lab culture while you were a patient in the Emergency Department, you will be notified by phone if there is a need to change your antibiotic. Please make sure you have provided a working phone number so we can reach you if necessary. [facility] Emergency Department has provided you with a complete list of medications post discharge. Please inform your infant babysitter/provider of your visit and for further instruction on these medications. Any specific questions regarding your chronic medications and dosages should be discussed with your primary care physician(s) and/or pharmacist. Visit Information Visit Diagnosis: Diagnoses This Visit Contusion of left hand including fingers (S60.222A) Contusion of unspecified finger without damage to nail, initial encounter (S60.00XA) Medical screening exam ([id number]) If you received any narcotics, sedation, or any other medication that causes drowsiness for the next 24 hours, unless otherwise directed: ? Do not drive a car. ? Do not operate machinery such as power tools, lawn mowers, drills, sewing machines, or stoves ? Avoid alcoholic beverages and drugs for allergies, nerves, or sleep ? Do not make important personal or business decisions or sign any legal documents Reason for Visit: Medial screening exam- follow up of work related injury. Pt describes continued edema with pain with approx. 30% since initial injury Allergies: Substance Reaction Symptoms Type Comments Skin Therapy Environment Vital Signs: Vitals and Measurements this Visit (last charted value for your 07/06/2022 visit) Vital Signs This Visit Temperature Temporal: 36.5 DegC Peripheral Pulse Rate: 99 bpm Respiratory Rate: 16 br/min Systolic Blood Pressure: 122 mmHg Diastolic Blood Pressure: 74 mmHg SpO2: 98 % Oxygen Therapy: Room air Measurements This Visit Height/Length Measured: 180.34 cm Weight Measured: 78.02 kg Body Mass Index: 23.99 kg/m2 Problems List: Problem Onset Comments No Problems found Major Tests and Procedures: The following procedures and tests were performed during your ED visit. Laboratory Radiology Cardiology Viruses or Bacteria What?s got you sick? Antibiotics only treat bacterial infections. Viral illnesses cannot be treated with antibiotics. When an antibiotic is not prescribed, ask your healthcare professional for tips on how to relieve symptoms and feel better. Usual Cause Illness Viruses Bacteria Antibiotic Needed Cold/Runny Nose NO Bronchitis/Chest Cold (in otherwise healthy children and adults) NO Whooping Cough Yes Flu NO Strep Throat Yes Sore Throat (except strep) NO Fluid in the middle ear (otitis media with effusion) NO Urinary Tract Infection Yes Antibiotics Aren?t Always the Answer www.cdc.gov/getsmart GET SMART Know When Antibiotics Work U.S. Department of Health and Human Services Centers for Disease Control and Prevention June 2014 [facility] Urgent Care Note- Provideron 07-06-2022 Urgent Care Note- Provider Patient: NESHA LEE Age: 16 years Sex: FEMALE : 2005 Associated Diagnoses: Contusion of left hand including fingers Author: Kashmir Monique PA-C History of Present Illness OCCUPATIONAL HEALTH FOLLOW-UP Date of injury: 06/14/22 Claim #: [id number] Employer: [employer] Mechanism of Injury: Smashed finger/hand with dough and bowl Diagnosis: Contusion of left hand including fingers This is a 16 year old here today in follow-up for her work related injury. She was working for [employer] at the [employer] on 06/14 when she was carrying a bowl with dough and the bowl dropped onto her left hand. She stated that this was a very large, heavy bowl and that generally this was a two person job. After this happened, she was in too much pain to continue to do her job so she states she was sent home 2 hours early. She was already scheduled off the following day, but when it was no better the next day she was seen in our ER. X-ray was non acute. She has been using a splint because of the continues pain, and she has been performing light duty work. She states today it is only about 30% better with time and rest. No fevers, chills or malaise. No other joint pains or myalgias. No numbness, tingling or weakness. No skin rashes or lesions. Ecchymosis has faded. There are no other associated symptoms. Movement still makes it worse. Nothing else makes the symptoms better or worse. Symptoms are described as sudden onset, moderate in nature and persisting to some degree at the PIP of the fifth finger. Health Status Allergies: Allergic Reactions (Selected) Unknown Skin Therapy- No reactions were documented.. Medications: (Selected) Prescriptions Prescribed ibuprofen 600 mg oral tablet: 600 mg = 1 tab(s), PO, QID, PRN: for pain, 20 tab(s), 0 Refill(s). Past Medical/ Family/ Social History Medical history: No active or resolved past medical history items have been selected or recorded.. Surgical history: No active procedure history items have been selected or recorded.. Family history: No family history items have been selected or recorded.. Social history: Social & Psychosocial Habits Alcohol 06/28/2022 Alcohol Use: Never Substance Abuse 06/28/2022 Substance use: Never Tobacco 06/28/2022 Smoking tobacco use: Never tobacco user Electronic Cigarette/Vaping 06/28/2022 Electronic Cigarette Use: Never . Problem list: Active Problems (1) MRSA (methicillin resistant staph aureus) culture positive . Physical Examination Vital Signs Vital Signs 07/06/2022 16:15 EDT Temperature Temporal 36.5 DegC Peripheral Pulse Rate 99 bpm HI Respiratory Rate 16 br/min Systolic Blood Pressure 122 mmHg Diastolic Blood Pressure 74 mmHg SpO2 98 % Oxygen Therapy Room air . GENERAL: Awake, alert and oriented to person, place and situation. Well nourished, well developed, non toxic, NAD. EXTREMITIES: Still with exquisite TTP at the PIP of the left fifth finger. This is improved from her initial evaluation where the entire finger and fifth metacarpal was exquisitely tender. I feel the soft tissue swelling has improved, although she is concerned it remains swollen. The ecchymosis has improved. No cyanosis, clubbing or other edema. Good muscle tone. Difficulty with full flexion and full extension, secondary to pain. She prefers to hold it slight flexion, versus the tight and full extension that I noted previously. Tendon function is in tact, but movement is with significant hesitation. There is brisk cap refill distally. SKIN: Normal inspection, no visualized ecchymosis, abrasion or rash. NEUROLOGIC: Light touch sensation in tact, strength 5/5 in bilateral upper extremities. Normal mentation. No focal neurological deficits appreciated. Medical Decision Making She continues with a lot of TTP of the PIP of her left fifth finger with significant hesitation with flexion. Given we are 3 weeks out from the initial injury and she continues with the above symptoms, I will get approval for an orthopedic consult to evaluate to make sure there isn't anything else to be concerned about. Continue rest, ice and elevate. Splint as she feels she needs it for protection. She is very fearful of it being bumped. Continue light duty work. Return with new, or worsening symptoms, or symptoms failing to improve as expected and the patient voiced their understanding. Questions answered. Follow-up with their family doctor as directed, return here sooner as needed. Impression and Plan Diagnosis Contusion of left hand including fingers ([id number] S60.222A, Discharge, Medical) Plan Condition: Stable. Disposition: Discharged: Time 07/06/2022 16:26:00, to home. Follow up with: ; Return to this practice Jul 20 at 4 p.m.; JOSELYN PATEL once approved and scheduled. Counseled: Patient, Family, Regarding diagnosis, Regarding treatment plan, Patient indicated understanding of instructions. (more content not included)... Normal [facility] Urgent Care [place] 022 Urgent Care Record [facility] ? Urgent Care [address] [place] [address] PATIENT DISCHARGE INSTRUCTIONS Patient Information Name: NESHA LEE Age: 16 Years Date of : 2005 Reason For Visit: Medical screening exam; [facility] F/U LEFT PINKY FINGER Arrival Time: 07/06/2022 16:04:05 Primary Care Physician: CLEO BLANKENSHIP Attending Physician: Kashmir Monique PA-C Comment: Visit Diagnosis: Diagnoses This Visit Contusion of left hand including fingers (S60.222A) Contusion of unspecified finger without damage to nail, initial encounter (S60.00XA) Medical screening exam ([id number]) If you received any narcotics, sedation, or any other medication that causes drowsiness for the next 24 hours, unless otherwise directed: ? Do not drive a car. ? Do not operate machinery such as power tools, lawn mowers, drills, sewing machines, or stoves ? Avoid alcoholic beverages and drugs for allergies, nerves, or sleep ? Do not make important personal or business decisions or sign any legal documents With: Address: When: JOSELYN PATEL [address] [place] [address], [address] [place] [address] Business (1) Comments: once approved and scheduled With: Address: When: Return to this practice Comments: Jul 20 at 4 p.m. Medication Information: The exam and treatment you received today in the [facility] Urgent Care were for an urgent problem and are not intended as complete care. It is important for you to follow up with a doctor, nurse practitioner, or physician?s health care assistant for ongoing care. If your symptoms become worse or you do not improve as expected and you are unable to reach your usual health care provider, you should return to the Emergency Department, we are available 24 hours a day. For those patients who have received Radiology results, the interpretation of your X-ray as given to you by our Urgent Care physician is only a preliminary report. The Radiologist will review your films and if there is a change in the diagnosis you will be notified by phone. Please make sure you have provided a working phone number so we can reach you if necessary. In the event that you had a lab culture while you were a patient in the Urgent Care, you will be notified by phone if there is a need to change your antibiotic. Please make sure you have provided a working phone number so we can reach you if necessary. [facility] Urgent Care has provided you with a complete list of medications post discharge. Please inform your infant babysitter/provider of your visit and for further instruction on these medications. Any specific questions regarding your chronic medications and dosages should be discussed with your primary care physician(s) and/or pharmacist. Visit Information Allergies: Substance Reaction Symptoms Type Comments Skin Therapy Environment Vital Signs: Vitals and Measurements this Visit (last charted value for your 07/06/2022 visit) Vital Signs This Visit Temperature Temporal: 36.5 DegC Peripheral Pulse Rate: 99 bpm Respiratory Rate: 16 br/min Systolic Blood Pressure: 122 mmHg Diastolic Blood Pressure: 74 mmHg SpO2: 98 % Oxygen Therapy: Room air Measurements This Visit Height/Length Measured: 180.34 cm Weight Measured: 78.02 kg Body Mass Index: 23.99 kg/m2 Problems List: Problem Onset Comments No Problems found Patient Education Viruses or Bacteria What?s got you sick? Antibiotics only treat bacterial infections. Viral illnesses cannot be treated with antibiotics. When an antibiotic is not prescribed, ask your healthcare professional for tips on how to relieve symptoms and feel better. Usual Cause Illness Viruses Bacteria Antibiotic Needed Cold/Runny Nose NO Bronchitis/Chest Cold (in otherwise healthy children and adults) NO Whooping Cough Yes Flu NO Strep Throat Yes Sore Throat (except strep) NO Fluid in the middle ear (otitis media with effusion) NO Urinary Tract Infection Yes Antibiotics Aren?t Always the Answer www.cdc.gov/getsmart GET SMART Know When Antibiotics Work U.S. Department of Health and Human Services Centers for Disease Control and Prevention June 2014 Normal [facility] Discharge Instructionson Discharge Instructions [id number] [email or web address] [facility] ED Clinical Summaryon 2021 ED Clinical Summary [facility] ? Urgent Care [address] [place] [id number] Clinical Summary PERSON INFORMATION Name: NESHA LEE Age: 16 Years Sex: FEMALE : 2005 MRN: Acct#: Visit Reason: [facility]-F/U LEFT PINKY FINGER Arrival: 06/28/2022 16:00:01 Discharge: 06/28/2022 16:42:00 LOS: 000 00:42 Check In: 06/28/2022 16:00:01 Checkout: 06/28/2022 16:42:00 Address: [address] [place] [address] [address] [facility] [address] PCP: CLEO BLANKENSHIP PROVIDER INFORMATION Provider Role Assigned Unassigned Kashmir Monique PA-C ED PA 06/28/2022 16:03:47 Shweta White ED Nurse 06/28/2022 16:12:52 VITALS INFORMATION Vital Sign Triage Latest Temperature Tympanic Temperature Temporal Artery Pulse Rate O2 Sat Respiratory Rate Blood Pressure /54 mmHg /54 mmHg MEDICAL INFORMATION Medications Given: Allergy Information: Skin Therapy PHYSICIAN DOCUMENTATION DISCHARGE INFORMATION: Discharge Disposition: Home Discharge Location: Home PATIENT EDUCATION INFORMATION Instructions: Follow-Up: With: Address: When: Return to this practice Comments: Monday, Jul 06 at 4 p.m. DIAGNOSIS: Contusion of left hand including fingers; Contusion of unspecified finger without damage to nail, initial encounter Patient Understands: Yes - Patient/family/careg iver verbalizes understanding of instructions given Comment: [facility] ED Patient Summaryon 022 ED Patient Summary [facility] ? Urgent Care [address] [place] [id number] PATIENT DISCHARGE INSTRUCTIONS Patient Information Name: NESHA LEE Age: 16 Years Date of : 2005 Reason For Visit: [facility]-F/U LEFT PINKY FINGER Arrival Time: 06/28/2022 16:00:01 Primary Care Physician: CLEO BLANKENSHIP Attending Physician: Kashmir Monique PA-C Comment: Patient Education With: Address: When: Return to this practice Comments: Jul 06 at 4 p.m. Medication Information: The exam and treatment you received today in the [facility] Emergency Department were for an urgent problem and are not intended as complete care. It is important for you to follow up with a doctor, nurse practitioner, or physician?s health care assistant for ongoing care. If your symptoms become worse or you do not improve as expected and you are unable to reach your usual health care provider, you should return to the Emergency Department, we are available 24 hours a day. For those patients who have received Radiology results, the interpretation of your X-ray as given to you by our Emergency Department physician is only a preliminary report. The Radiologist will review your films and if there is a change in the diagnosis you will be notified by phone. Please make sure you have provided a working phone number so we can reach you if necessary. In the event that you had a lab culture while you were a patient in the Emergency Department, you will be notified by phone if there is a need to change your antibiotic. Please make sure you have provided a working phone number so we can reach you if necessary. [facility] Emergency Department has provided you with a complete list of medications post discharge. Please inform your infant babysitter/provider of your visit and for further instruction on these medications. Any specific questions regarding your chronic medications and dosages should be discussed with your primary care physician(s) and/or pharmacist. Additional medications on your home medication list not specifically addressed. Please contact the ordering physician if you have questions about these medications. ibuprofen (ibuprofen 600 mg oral tablet) 1 tab(s) Oral 4 times a day as needed for pain. Refills: 0. Visit Information Visit Diagnosis: Diagnoses This Visit Contusion of left hand including fingers (S60.222A) Contusion of unspecified finger without damage to nail, initial encounter (S60.00XA) If you received any narcotics, sedation, or any other medication that causes drowsiness for the next 24 hours, unless otherwise directed: ? Do not drive a car. ? Do not operate machinery such as power tools, lawn mowers, drills, sewing machines, or stoves ? Avoid alcoholic beverages and drugs for allergies, nerves, or sleep ? Do not make important personal or business decisions or sign any legal documents Reason for Visit: here for [facility] left 5th finger recheck Allergies: Substance Reaction Symptoms Type Comments Skin Therapy Environment Vital Signs: Vitals and Measurements this Visit (last charted value for your 06/28/2022 visit) Vital Signs This Visit Temperature Temporal: 36.8 DegC Peripheral Pulse Rate: 68 bpm Respiratory Rate: 14 br/min Systolic Blood Pressure: 100 mmHg Diastolic Blood Pressure: 54 mmHg Problems List: Problem Onset Comments MRSA (methicillin resistant staph aureus) culture positive 05/25/2022-Wound Culture-Abscess Armpit R -is positive for Methicillin-resistan t Staphylococcus aureus (MRSA). Please place the patient in Contact Precautions. Major Tests and Procedures: The following procedures and tests were performed during your ED visit. Laboratory Radiology Cardiology Viruses or Bacteria What?s got you sick? Antibiotics only treat bacterial infections. Viral illnesses cannot be treated with antibiotics. When an antibiotic is not prescribed, ask your healthcare professional for tips on how to relieve symptoms and feel better. Usual Cause Illness Viruses Bacteria Antibiotic Needed Cold/Runny Nose NO Bronchitis/Chest Cold (in otherwise healthy children and adults) NO Whooping Cough Yes Flu NO Strep Throat Yes Sore Throat (except strep) NO Fluid in the middle ear (otitis media with effusion) NO Urinary Tract Infection Yes Antibiotics Aren?t Always the Answer www.cdc.gov/getsmart GET SMART Know When Antibiotics Work U.S. Department of Health and Human Services Centers for Disease Control and Prevention June 2014 [facility] Urgent Care Note- Provideron 06-28-2022 Urgent Care Note- Provider Patient: NESHA LEE Age: 16 years Sex: FEMALE : 2005 Associated Diagnoses: Contusion of left hand including fingers Author: Kashmir Monique PA-C History of Present Illness OCCUPATIONAL HEALTH FOLLOW-UP Date of injury: 06/14/22 Claim #: [id number] Employer: [employer] Mechanism of Injury: Smashed finger/hand with dough and bowl Diagnosis: Contusion of left hand including fingers This is a 16 year old here today in follow-up for her work related injury. She was working for [employer] at the [employer] on 06/14 when she was carrying a bowl with dough and the bowl dropped onto her left hand. She was in too much pain to continue to do her job so she states she was sent home 2 hours early. She was already scheduled off the following day, but when it was no better the next day she was seen in our ER. X-ray was non acute. She has had the finger splinted and has been performing light duty work. She states today it is about 30% better with time and rest. No fevers, chills or malaise. No other joint pains or myalgias. No numbness, tingling or weakness. No skin rashes or lesions. Ecchymosis has faded. There are no other associated symptoms. Movement still makes it worse. Nothing else makes the symptoms better or worse. Symptoms are described as sudden onset, moderate in nature and persisting to some degree at the PIP of the fifth finger. Health Status Allergies: Allergic Reactions (Selected) Unknown Skin Therapy- No reactions were documented.. Medications: (Selected) Prescriptions Prescribed ibuprofen 600 mg oral tablet: 600 mg = 1 tab(s), PO, QID, PRN: for pain, 20 tab(s), 0 Refill(s). Past Medical/ Family/ Social History Medical history: No active or resolved past medical history items have been selected or recorded.. Surgical history: No active procedure history items have been selected or recorded.. Family history: No family history items have been selected or recorded.. Social history: Social & Psychosocial Habits Alcohol 06/15/2022 Alcohol Use: Never Substance Abuse 06/16/2022 Substance use: Never Tobacco 06/15/2022 Smoking tobacco use: Never tobacco user 06/16/2022 Smoking tobacco use: Never tobacco user Electronic Cigarette/Vaping 06/16/2022 Electronic Cigarette Use: Never . Problem list: Active Problems (1) MRSA (methicillin resistant staph aureus) culture positive . Physical Examination Vital Signs Vital Signs 06/28/2022 16:13 EDT Temperature Temporal 36.4 DegC . GENERAL: Awake, alert and oriented to person, place and situation. Well nourished, well developed, non toxic, NAD. EXTREMITIES: TTP at the PIP of the left fifth finger. Soft tissue swelling and ecchymosis has improved. No cyanosis, clubbing or other edema. Good muscle tone. Difficulty with full flexion appears difficult for her secondary to pain, she prefers to hold it tight in full extension. Tendon function is in tact however. Brisk cap refill distally. SKIN: Normal inspection, no visualized rash. NEUROLOGIC: Light touch sensation in tact, strength 5/5 in bilateral upper extremities. Normal mentation. No focal neurological deficits appreciated. Medical Decision Making Continue light duty. I'd like her to start doing ROM of her fifth finger out of the splint as she tolerates. Return with new, or worsening symptoms, or symptoms failing to improve as expected and the patient voiced their understanding. Questions answered. Follow-up here as scheduled in 1 week, return sooner as needed. Impression and Plan Diagnosis Contusion of left hand including fingers ([id number] S60.222A, Discharge, Medical) Plan Condition: Stable. Disposition: Discharged: Time 06/28/2022 16:31:00, to home. Follow up with: ; Return to this practice Monday, Jul 06 at 4 p.m.. Counseled: Patient, Regarding diagnosis, Regarding treatment plan, Patient indicated understanding of instructions. [Electronically Signed on: 06/28/2022 16:38 EDT] Kashmir Monique PA-C [Verified on: 06/28/2022 16:38 EDT] Kashmir Monique PA-C Normal [facility] [address]22 Urgent Care Record [facility] ? Urgent Care [address] [place] [address] PATIENT DISCHARGE INSTRUCTIONS Patient Information Name: NESHA LEE Age: 16 Years Date of : 2005 Reason For Visit: [facility]WC-F/U LEFT PINKY FINGER Arrival Time: 06/28/2022 16:00:01 Primary Care Physician: CLEO BLANKENSHIP Attending Physician: Kashmir Monique PA-C Comment: Visit Diagnosis: Diagnoses This Visit Contusion of left hand including fingers (S60.222A) Contusion of unspecified finger without damage to nail, initial encounter (S60.00XA) If you received any narcotics, sedation, or any other medication that causes drowsiness for the next 24 hours, unless otherwise directed: ? Do not drive a car. ? Do not operate machinery such as power tools, lawn mowers, drills, sewing machines, or stoves ? Avoid alcoholic beverages and drugs for allergies, nerves, or sleep ? Do not make important personal or business decisions or sign any legal documents With: Address: When: Return to this practice Comments: Jul 06 at 4 p.m. Medication Information: The exam and treatment you received today in the [facility] were for an urgent problem and are not intended as complete care. It is important for you to follow up with a doctor, nurse practitioner, or physician?s health care assistant for ongoing care. If your symptoms become worse or you do not improve as expected and you are unable to reach your usual health care provider, you should return to the Emergency Department, we are available 24 hours a day. For those patients who have received Radiology results, the interpretation of your X-ray as given to you by our Urgent Care physician is only a preliminary report. The Radiologist will review your films and if there is a change in the diagnosis you will be notified by phone. Please make sure you have provided a working phone number so we can reach you if necessary. In the event that you had a lab culture while you were a patient in the Urgent Care, you will be notified by phone if there is a need to change your antibiotic. Please make sure you have provided a working phone number so we can reach you if necessary. [facility] has provided you with a complete list of medications post discharge. Please inform your infant babysitter/provider of your visit and for further instruction on these medications. Any specific questions regarding your chronic medications and dosages should be discussed with your primary care physician(s) and/or pharmacist. Additional medications on your home medication list not specifically addressed. Please contact the ordering physician if you have questions about these medications. ibuprofen (ibuprofen 600 mg oral tablet) 1 tab(s) Oral 4 times a day as needed for pain. Refills: 0. Visit Information Allergies: Substance Reaction Symptoms Type Comments Skin Therapy Environment Vital Signs: Vitals and Measurements this Visit (last charted value for your 06/28/2022 visit) Vital Signs This Visit Temperature Temporal: 36.8 DegC Peripheral Pulse Rate: 68 bpm Respiratory Rate: 14 br/min Systolic Blood Pressure: 100 mmHg Diastolic Blood Pressure: 54 mmHg Problems List: Problem Onset Comments MRSA (methicillin resistant staph aureus) culture positive 05/25/2022-Wound Culture-Abscess Armpit R -is positive for Methicillin-resistan t Staphylococcus aureus (MRSA). Please place the patient in Contact Precautions. Patient Education Viruses or Bacteria What?s got you sick? Antibiotics only treat bacterial infections. Viral illnesses cannot be treated with antibiotics. When an antibiotic is not prescribed, ask your healthcare professional for tips on how to relieve symptoms and feel better. Usual Cause Illness Viruses Bacteria Antibiotic Needed Cold/Runny Nose NO Bronchitis/Chest Cold (in otherwise healthy children and adults) NO Whooping Cough Yes Flu NO Strep Throat Yes Sore Throat (except strep) NO Fluid in the middle ear (otitis media with effusion) NO Urinary Tract Infection Yes Antibiotics Aren?t Always the Answer www.cdc.gov/getsmart GET SMART Know When Antibiotics Work U.S. Department of Health and Human Services Centers for Disease Control and Prevention June 2014 [facility] Coding Summaryon 06-21-2022 Coding Summary HTMLBase 64 RgceoaqgYXt2hSh+PGhl YWQ+ML3SQGYpV99wwRCn jO6EF2yDMI0FMEITSVQJ GR0TPR9xzXD3PGbxT9Mv biAv ZcfvwAYcLA65HGg2MQY4 nXmuRCmtlG0cqKPyO5h3 UpVmLF63hK43FHwfEOLf YkF0EiBeqeewhWYp Z1mwIvIwhLTbYjw+PHRh YmxlIHdpZHRoPScxMDAl BmAmsCmpCB3wJh9jWJCh LWNvbGxhcHNlOiBj u5plDEUrVLlwRL7riDju A5UejZD1FBDcl4w0Nd73 dHI+WJQkRWF0sMadVJju g564EoZmo4kjUYJ3 gEJvAYguXPB9X56ro8M8 BOMuKNTkJKA9rGT9gS2w qBxkwxphJ0YdmZGkTuO4 UBP8eBHubQ5byQcr jdxsnO5dVbt+L49TYQ8A TWZABE4MPpq4V2TpSwjw dHI+XS14UELeTP21hIXn zPIbg4itbFf4AzSn LQLbLFS5kBnuWPtsl8Tm RFJyI94ddJDgi8L9EPJv mIelxRGeLvYjnNA9rX4u IVhvtriwc2gjsolu Xfuxn5frhl13vZ92P03h IGnnVOZkCBZ6GTFsDMAe oCbwsj8mrV9aGm6+IDxj b8rgi6itsBl0XwFr ATMmfyXdpBjpOGZ0b1Rs Hb90R3FwiDadc7CuWkp1 qs60bWItg8B4iQX0EZde QTAenS1mOIfpZnS8 HVKzYyPgdM94bRGiCYdm Cl0xyJjhxTgtPV8sHDDo uhuhMQZiwZ2iPHEkfPDo cEdjFB4rSFIadoyo w473LrLmRYW5REBkdMSx A7OuoX5pYpIeISCcZJQk V3UmrGNzZOkeH729STgj KkV5OOIlvaKcK6As XPDzgSmcPbM9o0W9Mv4H b1TzkpwmSEG0VZeiDEO6 RtOmWxWpMnZ7W4VwWsz6 JPJhcMjwQU3jT2Nf JIVjrsvqlsnbgXR9OGWb MSFzlW48eRPiXZsnDh3g k5X8q891BWXiSVWruP75 Rv9qqXzwJAVhwZOL oM0cgzivs3mgfrulTbKs TKDiJZb1DCe5JVGglOsa OqZvKGL0QuM0LCQ8xXZf oN5irBiewgddlG2y Oyc+E44zvR5jGRH0OAO0 ffwlZSAzclYxSG41YS07 J4FcLfchpAHrdCU+PGRp qvIarFbuJR2xLbSf x1qkq6YzWRkgD9LtXMMi CWaqHea7EZQzYTD5pEZ2 rW7jYJIiITmcv6O6gDM2 X7EyfpIxmg2ja8ql OSCgGQsoK81anRFmk4N5 IXYcjXA6DVFfdRrqXlAd tV34Fir+FUNffYvxn4Ec Blvdz1xal3zmbIx3 IjMwJSIgdmFsaWduPSJ0 l1ZaQw18A96eWEzdAQKv GKHuMJAvXUOioUoiff4l pT3mDl7+PGNvbCB3 nIF4eO3tFNPjFvS0WZcx H790HmSznRHoPihcr6il s3lzbCn3JiQkQSLbnkPv bCjwBOA7v0YkKj47 P03eGYjtSHIhZVHvEBZw SGBdbTzevx4gvK8jXa4+ HG9wt2fvar20aR36pKE+ LTCbLSY0kZbvWStt EMTogS3oAHosXyG5OSXt KaHehW74fHTcZHsxQt5r vEwfyZveXN9aOVEuftfe m846KjPwy9yvZRUt iLOuQWasYIK4V48se8I4 VFDvRUJgRGA8aGK7lN1d bGlnbjogbGVmdDsgdmVy gDjmPKkpFXlpC759 IHRvcDsnPlBhdGllbnQg PxOiWZu8N4HyJie5HCTm sFziJZ7cvBKnPCyeQu5q bVtdyXtaEE1rQBYm tgmnv198FrRlt7zmNFTe qLIrBDutLZO8R51ec6U5 SJBwRNSeUYA6wGP5sP0b bGlnbjogbGVmdDsg bpMzpIqaXExqIRemL987 IHRvcDsnPkJpcnRoIERh dDY8OM48ST64sPMgl4O6 qVM8V4ZlJEShndjp zdwhwZM8HTJiTFDqrF19 Ye4ofMunLu3dDULuQEJ7 PSIhlAYeW9HkiC5vAkWb CRHjWKYyR7KbgAQf GDocJ398NGdpEtG1OFGz weYeM6HzMDTkiCtvHlS2 f9A0Gf5AN7P1CO58PN97 iNFwl7K7gAU4Y2Qz CWLqbaqkkijbiTN2CNYd SEFmuH24Ue8iyVplXa0b NOCsKPX5MNVkaDMoJ8Sn pT6fLnNwCUXsKJBs E1FtiOYtDFcfP541TVuk XeI5FCAnzmNiP7DbGVCr sXguAcJ2v1Q6Tb4VGNf3 VI47PG52xERta7G4 zNF6G7XaGVRishgxqyjn aKS8UBDpMVBhkI48Lb1q uAopBp0hKOHsCOV6DXQm xGJgJ4ZoqH0jDwIw CURzEMWmS5FrfDRtIThv V353TJukTsS6KDAqajXb C1WzAOXptJtcAuJ9c7Y1 Cx0YJUPpNQ21COW6 oWZ3SD45FX41J7DeZnci dGFibGU+PHRhYmxlIHdp ZHRoPScxMDAlJyBzdHls VM3cTr2dWTKwJFGu eUfvbXOrBnOwo9odMFMd OWhqXB1sjUsmE0NtrLH6 YCEuy4c9Nh44A99gN0Gg dXA+YVJjqNQ7bMQ5 mM9qSfYnFxO4CVcpZ323 QlKmqWKvCdkbh4njc3xg wRe7YsV3ARVrhpDatKmq HRU4e4ApOz21V50s IHdpZHRoPSIxNSUiIHZh sAgkpr8znI3xUl7+PGNv fJQ9gNB4iP7vOqSvTeD6 FUeeA688GpUhoASj Cnrid8nvc1qgfCm2CgPv THRbnhGwvDcaKAG1j4Zu Wd45V0FwaGimm5JqLdj9 yl03bAKhf9L6qYQ8 C2BcBXIuwqwmlQRnxBed MD7cUPYlspsvYGYgsA3g ZSBgW4n8LkZxWrD9XSet U8IuxxX5ILPxfQFg RZfcISS5D44uq9C8PFBq VJIiFVL9uZT8aK1snClo bjogbGVmdDsgdmVydGlj OXzeLHtxE342SRDo zWxiYDZinZ7iLBSytNGx lDhkUE5cQDXcfusgFkwI ZeDZTZ1eFOySNBXUUXyC WD4PT8lGUAC3O7Jl Uei9MLBpmTikIO9iiUAj DBhoEd1daGiqfGddAF7w QTNmutsySAOhaT0eYZOg nXAprNaoXB4dNRWu prhux971FlEbNOS4KSGl fZQgP6CdjN2sWcMjHECk QMJjE0LzvRRfXKckW458 KIhzJqK3SOPnbfTd S0WfSQAccYheTnX7a0Y7 Qy6qTL2nJV1hNKS0UO17 ZZ91eTOdj7W7qCW8T4Wm ZGRpbmctcmlnaHQ6 NHElUVIqxX74sQXrLVif Uc6ax6B5f820ZRGrLUWt uP61Tp6irEjwPPBwgNMU yJ2zypvhw2mywkzi UlQmTMYoKRk8LTi7ZVIp nWgcXgUsCNS0IfS4CCX8 fSBtoN8jlGgjobwcpU5h Oyc+MTcgWWVhcnM8 C3TkCke6XFYwaWgcVL1u jWZbWGyfSv5zhZxprEvm HI8gFJAdundyOFJdvA1o EKPqnOWnyMejOG1k VKLswzwst769PrQaTUO3 MKCcrUAeV1VkpN6qNiOl MXRvPXZfC9BstBTfYJfi Q142DKzyBfI5BDCc axZuJ6AbJLIdhDbdPjH5 a0U7Yd1ZNF1OXGQ7D8Ev Bmd5JWFlkQqmPH8jtIQo NYuwSp4hbNajkHlu DD9zVRWbnlzeQYFzuW1e EIYbiEYaeOfbBB5kDPZs cqqnc396CkVsZAH8JPHq bJUzE9EtjX2aRdFp RODwYULoL9TveWIqHXzk R134GHqkIjW9LAFerkSv S1SySNSuqQxqKdG5s1U6 Qj2MTCkpcMK+PC90 kv53B9IeCxhiXro8WGYv CRJ0pSY2qE4xCPJnUObs z2T5mHW1I1LzapFxtf3m k0qiCFLjYEkyC71o gQYep9T2XRFfsMZ1NRSl rOasFdKlpF59Zug+PGNv jGbsv6SaWhfvw2ota7zm xFc5DiDlXUGtnvDh nYxxTPW6w3VtSl69F79w IHdpZHRoPSIzMCUiIHZh pUbcya3axA2mCr2+PGNv oGC1zPX8gU2xUwAj FaN5FXxvA287KsZumLDu Jueya4jys9vkwUi4ScEb WLAqynGgwFkhFEU4v7Dy Ju88A6DezKdgw8Iu Lbf5cu25dBGfa2G2zKP1 M7GkJYNefqadbPDpqHdm OA9iFENfxeguAFIteM7y XLMgA1r2FvDiHpG5 DCbfA5NnlbV0CGRbeTTu PNVpiDMRnW6gauueq6er ehzrRxWoNWKlEJa6ATc6 LWFsaWduOiBsZWZ0 WaX8BBO3aBLysX2qkUyu zmkguI0kMnt+NZq9h3al zRGpJK7tpQD4MK01GD54 cRDhc9R4kVA0Y5Um ALYuoqlpwsjlnPE2RNHi WSFihH16Pj2wcAtoVg1p ZJYjHKU1NDJfeFMpU4Mj bR6aJmAuCLUsLSOe X0PkqMAoWEgaV323IZum OdJ9VPLkxiOcD6KoUZLb hCfxCmS4i4Z6Vp7ACI48 ZP68ZJ27kPNba1I8 vWE6Y4UhAKDxesqyscgk cAC7BKTrNAZjqT67Cu2u gRuoHm1nCAVxZUB2JMFo sMAcS7AktI3zWcLy EESmRQImH7TfwGTwNZvy X916HAywMfL8AASxwtOm X4LaSDQorNyxFqB0w7M2 Tb8BWb43OH38TK06 cDSyz0M8dSB9D2YyHAKf jrohtkhwpLB5EZRjLOTv qS14Wp1lrOisDw0eYFGh MYC4YHNuhXQhI4Vi eI2fMmSoWDRpXCZgS7Mt lKAoMLwaE107UUegFrS8 ZNFqxfQuP5OaEUQbdApd KwR8u1S6Lq8GXIlv qrl8A0RlXazpsGR+PC90 IOQgLG68rQGonZOfv1az rXm4IcNyGDPxYHR2lLpk AOhoe0LqSXLqP88t bGF (more content not included)... Normal [facility] ED Clinical Summaryon 2021 ED Clinical Summary [facility] ? Urgent Care [address] [place] [id number] Clinical Summary PERSON INFORMATION Name: NESHA LEE Age: 16 Years Sex: FEMALE : 2005 MRN: Acct#: Visit Reason: Medical screening exam; C F/U LT PINKY FINGER Arrival: 06/16/2022 16:20:19 Discharge: 06/16/2022 17:21:00 LOS: 000 01:01 Check In: 06/16/2022 16:20:19 Checkout: 06/16/2022 17:21:00 Address: [address] [place] [id number] PCP: CLEO BLANKENSHIP PROVIDER INFORMATION Provider Role Assigned Unassigned [place] [facility] [employer] Nurse 06/16/2022 16:22:01 Kashmir Monique PA-C ED PA 06/16/2022 16:22:05 VITALS INFORMATION Vital Sign Triage Latest Temperature Tympanic Temperature Temporal Artery Pulse Rate O2 Sat 97 % 97 % Respiratory Rate Blood Pressure /68 mmHg /68 mmHg MEDICAL INFORMATION Medications Given: Allergy Information: Skin Therapy PHYSICIAN DOCUMENTATION DISCHARGE INFORMATION: Discharge Disposition: Home Discharge Location: Home PATIENT EDUCATION INFORMATION Instructions: Follow-Up: With: Address: When: Return to this practice Comments: Jun 28 at 11 a.m. DIAGNOSIS: Contusion of left hand including fingers; Contusion of unspecified finger without damage to nail, initial encounter Patient Understands: Yes - Patient/family/careg iver verbalizes understanding of instructions given Comment: Normal [facility] ED Patient Summaryon 022 ED Patient Summary [facility] ? Urgent Care [address] [place] [address] PATIENT DISCHARGE INSTRUCTIONS Patient Information Name: NESHA LEE Age: 16 Years Date of : 2005 Reason For Visit: Medical screening exam; [facility] F/U LT PINKY FINGER Arrival Time: 06/16/2022 16:20:19 Primary Care Physician: CLEO BLANKENSHIP Attending Physician: Kashmir Monique PA-C Comment: Patient Education With: Address: When: Return to this practice Comments: Jun 28 at 11 a.m. Medication Information: The exam and treatment you received today in the [facility] Emergency Department were for an urgent problem and are not intended as complete care. It is important for you to follow up with a doctor, nurse practitioner, or physician?s health care assistant for ongoing care. If your symptoms become worse or you do not improve as expected and you are unable to reach your usual health care provider, you should return to the Emergency Department, we are available 24 hours a day. For those patients who have received Radiology results, the interpretation of your X-ray as given to you by our Emergency Department physician is only a preliminary report. The Radiologist will review your films and if there is a change in the diagnosis you will be notified by phone. Please make sure you have provided a working phone number so we can reach you if necessary. In the event that you had a lab culture while you were a patient in the Emergency Department, you will be notified by phone if there is a need to change your antibiotic. Please make sure you have provided a working phone number so we can reach you if necessary. [facility] Emergency Department has provided you with a complete list of medications post discharge. Please inform your infant babysitter/provider of your visit and for further instruction on these medications. Any specific questions regarding your chronic medications and dosages should be discussed with your primary care physician(s) and/or pharmacist. Additional medications on your home medication list not specifically addressed. Please contact the ordering physician if you have questions about these medications. ibuprofen (ibuprofen 600 mg oral tablet) 1 tab(s) Oral 4 times a day as needed for pain. Refills: 0. Visit Information Visit Diagnosis: Diagnoses This Visit Contusion of left hand including fingers (S60.222A) Contusion of unspecified finger without damage to nail, initial encounter (S60.00XA) Medical screening exam ([id number]) If you received any narcotics, sedation, or any other medication that causes drowsiness for the next 24 hours, unless otherwise directed: ? Do not drive a car. ? Do not operate machinery such as power tools, lawn mowers, drills, sewing machines, or stoves ? Avoid alcoholic beverages and drugs for allergies, nerves, or sleep ? Do not make important personal or business decisions or sign any legal documents Reason for Visit: [facility] follow-up Allergies: Substance Reaction Symptoms Type Comments Skin Therapy Environment Vital Signs: Vitals and Measurements this Visit (last charted value for your 06/16/2022 visit) Vital Signs This Visit Temperature Oral: 37.0 DegC Peripheral Pulse Rate: 68 bpm Respiratory Rate: 18 br/min Systolic Blood Pressure: 107 mmHg Diastolic Blood Pressure: 68 mmHg SpO2: 97 % Oxygen Therapy: Room air Measurements This Visit Height/Length Measured: 180.34 cm Weight Measured: 74.39 kg Body Mass Index: 22.87 kg/m2 Problems List: Problem Onset Comments MRSA (methicillin resistant staph aureus) culture positive 05/25/2022-Wound Culture-Abscess Armpit R -is positive for Methicillin-resistan t Staphylococcus aureus (MRSA). Please place the patient in Contact Precautions. Major Tests and Procedures: The following procedures and tests were performed during your ED visit. Laboratory Radiology Cardiology Viruses or Bacteria What?s got you sick? Antibiotics only treat bacterial infections. Viral illnesses cannot be treated with antibiotics. When an antibiotic is not prescribed, ask your healthcare professional for tips on how to relieve symptoms and feel better. Usual Cause Illness Viruses Bacteria Antibiotic Needed Cold/Runny Nose NO Bronchitis/Chest Cold (in otherwise healthy children and adults) NO Whooping Cough Yes Flu NO Strep Throat Yes Sore Throat (except strep) NO Fluid in the middle ear (otitis media with effusion) NO Urinary Tract Infection Yes Antibiotics Aren?t Always the Answer www.cdc.gov/getsmart GET SMART Know When Antibiotics Work U.S. Department of Health and Human Services Centers for Disease Control and Prevention June 2014 [facility] Urgent Care Note- Provideron 06-16-2022 Urgent Care Note- Provider Patient: NESHA LEE Age: 16 years Sex: FEMALE : 2005 Associated Diagnoses: Contusion of left hand including fingers Author: Kashmir Monique PA-C Basic Information Additional information: Chief Complaint from Nursing Triage Note : Chief Complaint 06/15/2022 11:24 EDT Chief Complaint Pt presents to ED r/t left hand pain post dropping dough ball in pizza umana on left hand at work. . History of Present Illness [facility] FOLLOW-UP Date of injury: 06/14/22 Claim #: Employer: [employer] Mechanism of Injury: Smashed finger/hand with dough and bowl Diagnosis: Contusion of left hand including fingers This is a 16 year old here today in follow-up for her work related injury. She states she works for [employer] at [employer]. She was carrying a bowl with dough which she states is a 2 person job and the bowl dropped onto her hand. She was in too much pain to continue to do her job so she states she was sent home 2 hours early. She was already scheduled off yesterday and today and is scheduled to return tomorrow. She was brought to the ER by her father yesterday because symptoms were persisting. X-ray was non acute and she is here today in [facility]. No fevers, chills or malaise. No other joint pains or myalgias. No numbness, tingling or weakness. No skin rashes or lesions. + ecchymosis. There are no other associated symptoms. Movement makes it worse. Nothing else makes the symptoms better or worse. Symptoms are described as sudden onset, moderate in nature and persisting. Health Status Allergies: Allergic Reactions (Selected) Unknown Skin Therapy- No reactions were documented.. Medications: (Selected) Prescriptions Prescribed ibuprofen 600 mg oral tablet: 600 mg = 1 tab(s), PO, QID, PRN: for pain, 20 tab(s), 0 Refill(s). Past Medical/ Family/ Social History Medical history: No active or resolved past medical history items have been selected or recorded.. Surgical history: No active procedure history items have been selected or recorded.. Family history: No family history items have been selected or recorded.. Social history: Social & Psychosocial Habits Alcohol 06/15/2022 Alcohol Use: Never Substance Abuse 06/15/2022 Substance use: Never Tobacco 06/15/2022 Smoking tobacco use: Never tobacco user Electronic Cigarette/Vaping 06/15/2022 Electronic Cigarette Use: Never . Problem list: Active Problems (1) MRSA (methicillin resistant staph aureus) culture positive . Physical Examination Vital Signs Vital Signs 06/15/2022 11:24 EDT Temperature Temporal 36.5 DegC Peripheral Pulse Rate 62 bpm Respiratory Rate 16 br/min Systolic Blood Pressure 117 mmHg Diastolic Blood Pressure 58 mmHg SpO2 100 % Oxygen Therapy Room air . Measurements 06/15/2022 11:58 EDT Height/Length Dosing 180.340 cm Weight Dosing 74.390 kg 06/15/2022 11:24 EDT Height/Length Estimated 180.340 cm Weight Estimated 74.390 kg . GENERAL: Awake, alert and oriented to person, place and situation. Well nourished, well developed, non toxic, NAD. EXTREMITIES: TTP entire left fifth finger with some soft tissue swelling and ecchymosis mostly over the PIP. No cyanosis, clubbing or other edema. Good muscle tone. Difficulty with full flexion/extension secondary to pain but tendon function appears in tact. Brisk cap refill distally. SKIN: Faint ecchymosis left fifth mid finger, otherwise normal inspection, no visualized rash. NEUROLOGIC: Light touch sensation in tact, strength 5/5 in bilateral upper extremities. Normal mentation. No focal neurological deficits appreciated. Medical Decision Making Continue light duty until scheduled follow-up appointment. See scanned document. This is just a contusion and will improve with time and rest. She has a splint at home that she purchased that she can use if she finds it helpful. If she would like to return to work without restrictions because it is better before her scheduled follow-up she is welcome to walk in as an urgent care patient for release to full duty work. Rest, ice, elevate, Tylenol/Motrin. Return with new, or worsening symptoms, or symptoms failing to improve as expected and the patient voiced their understanding. Questions answered. Follow-up here as scheduled, sooner if needed. Impression and Plan Diagnosis Contusion of left hand including fingers ([id number] S60.222A, Discharge, Medical) Plan Condition: Stable. Disposition: Discharged: Time 06/16/2022 16:57:00, to home. Follow up with: ; Return to this practice Jun 28 at 11 a.m.. Counseled: Patient, Regarding diagnosis, Regarding treatment plan, Patient indicated understanding of instructions. [Electronically Signed on: 06/16/2022 20:07 EDT] Kashmir Monique PA-C [Verified on: 06/16/2022 20:07 EDT] Kashmir Monique PA-C Normal [facility] Urgent Care [address] 022 Urgent Care Record [facility] ? Urgent Care [address] [place] [address] PATIENT DISCHARGE INSTRUCTIONS Patient Information Name: NESHA LEE Age: 16 Years Date of : 2005 Reason For Visit: Medical screening exam; [facility] F/U LT PINKY FINGER Arrival Time: 06/16/2022 16:20:19 Primary Care Physician: CLEO BLANKENSHIP Attending Physician: Kashmir Monique PA-C Comment: Visit Diagnosis: Diagnoses This Visit Contusion of left hand including fingers (S60.222A) Contusion of unspecified finger without damage to nail, initial encounter (S60.00XA) Medical screening exam ([id number]) If you received any narcotics, sedation, or any other medication that causes drowsiness for the next 24 hours, unless otherwise directed: ? Do not drive a car. ? Do not operate machinery such as power tools, lawn mowers, drills, sewing machines, or stoves ? Avoid alcoholic beverages and drugs for allergies, nerves, or sleep ? Do not make important personal or business decisions or sign any legal documents With: Address: When: Return to this practice Comments: Jun 28 at 11 a.m. Medication Information: The exam and treatment you received today in the [facility] Urgent Care were for an urgent problem and are not intended as complete care. It is important for you to follow up with a doctor, nurse practitioner, or physician?s health care assistant for ongoing care. If your symptoms become worse or you do not improve as expected and you are unable to reach your usual health care provider, you should return to the Emergency Department, we are available 24 hours a day. For those patients who have received Radiology results, the interpretation of your X-ray as given to you by our Urgent Care physician is only a preliminary report. The Radiologist will review your films and if there is a change in the diagnosis you will be notified by phone. Please make sure you have provided a working phone number so we can reach you if necessary. In the event that you had a lab culture while you were a patient in the Urgent Care, you will be notified by phone if there is a need to change your antibiotic. Please make sure you have provided a working phone number so we can reach you if necessary. [facility] Urgent [facility] Emergency Department has provided you with a complete list of medications post discharge. Please inform your infant babysitter/provider of your visit and for further instruction on these medications. Any specific questions regarding your chronic medications and dosages should be discussed with your primary care physician(s) and/or pharmacist. Additional medications on your home medication list not specifically addressed. Please contact the ordering physician if you have questions about these medications. ibuprofen (ibuprofen 600 mg oral tablet) 1 tab(s) Oral 4 times a day as needed for pain. Refills: 0. Visit Information Allergies: Substance Reaction Symptoms Type Comments Skin Therapy Environment Vital Signs: Vitals and Measurements this Visit (last charted value for your 06/16/2022 visit) Vital Signs This Visit Temperature Oral: 37.0 DegC Peripheral Pulse Rate: 68 bpm Respiratory Rate: 18 br/min Systolic Blood Pressure: 107 mmHg Diastolic Blood Pressure: 68 mmHg SpO2: 97 % Oxygen Therapy: Room air Measurements This Visit Height/Length Measured: 180.34 cm Weight Measured: 74.39 kg Body Mass Index: 22.87 kg/m2 Problems List: Problem Onset Comments MRSA (methicillin resistant staph aureus) culture positive 05/25/2022-Wound Culture-Abscess Armpit R -is positive for Methicillin-resistan t Staphylococcus aureus (MRSA). Please place the patient in Contact Precautions. Patient Education Viruses or Bacteria What?s got you sick? Antibiotics only treat bacterial infections. Viral illnesses cannot be treated with antibiotics. When an antibiotic is not prescribed, ask your healthcare professional for tips on how to relieve symptoms and feel better. Usual Cause Illness Viruses Bacteria Antibiotic Needed Cold/Runny Nose NO Bronchitis/Chest Cold (in otherwise healthy children and adults) NO Whooping Cough Yes Flu NO Strep Throat Yes Sore Throat (except strep) NO Fluid in the middle ear (otitis media with effusion) NO Urinary Tract Infection Yes Antibiotics Aren?t Always the Answer www.cdc.gov/getsmart GET SMART Know When Antibiotics Work [place] Department of Health and Human Services Centers for Disease Control and Prevention June 2014 [facility] Coding Summaryon 06-15-2022 Coding Summary HTMLBase 64 JiybheatKDx3qSo+PGhl YWQ+UI5YNHMeR53xlFBt lC3KD4wUFJ2JRYGZUTNI MQ0RYA6oyXL9KYdlH2Cg biAv DkrdmILuAS52UNq7DCL3 dKpbPUspgR6ysAQmT8j2 WfKgDZ38dQ68YKzxVPVw DcP4LnYjtogpjOYe A3lnOnXxpAReCfz+PHRh YmxlIHdpZHRoPScxMDAl RmHcrGymUS2uXx1yALBs LWNvbGxhcHNlOiBj j5maFGIxIDixUC6yhHxp Q2WutUT9TUFbt6s3Wa91 dHI+OTDmHRX5tVyoGEbk q322JhPoj0jxMWE4 qRCpTSiyRDP4K31ie5L0 TSVoILJmHTI3nVD3tZ7i aZphurxhW5AcmDZxNxM7 JUC5gFRhgD4uhYcw qutlcK4nWem+F30CNQ1Q HMOMHT5ORwg2Z4HlVrsb dHI+YM14RNGiPI82pKWt eYSqn1jwhJk8NiBe RIMvGWN4jKuwGIxzq5Ks YTKiP90wxDWhn5H2VXYr zMfjbZFmHnCxiSS5gT0n XRylumlwg6hebmng Gkzbe0ttdg83kZ05E06r KUezKINpTOI3YUGySJCp cEfbnz1kjQ3qHy3+IDxj a6ngb2xqsHy1WcNp KXMfrjUcySqcJGE1p6Ui My51P8GgiSvgy9TaNxy7 st14fPTjp7S9qFK7OUqo MCKyoM7fMZxjYiD2 RHSsLqNlsG56hDExKMvn Rz2bcDdgzAdcFJ7wQADt tyqxFIAglL5bLJWxhIYh iOqfNE2sTJNgxzzt f162FqGxURD1BIPlxVMp U0AdpA6cPjGoTRIqXTPw Y6ZvbVKsFHxkI734MYxu EbH8CTEriuXzC9Sd XMPqxDjpMmO2b2F9Vf9G v2BltjqaFJA3SZidSBM5 PjF5RoCzGhK2N6FtApa5 WQQmtRvpRT3zX9Bj YSEsdbuydbmgoDU3PVBd ZINgzS50oOFrKPjpMz5l i3J2m842LKMqNYLimW78 Hl0sfPqaCTXuwCHK aL1bjexqb0ubuiguXlOp ISHsKUq8ZJf6KQOqyFsn XvPhBNV9TxB4STU0hZLd yU8kgVkukwgdsP3v Oyc+U43vqH6aCSC2IGN5 uycdGQGrfvEoGV02TT59 U9FhHsfonVOjyGZ+PGRp jjWqkPfgJJ7uSvQw x1rnh1JuHRcbV2EzSNBg GGmjRkq0AXYePFV8gHW6 dQ8vLASiJXoch2V4fCR6 B0EexrManh4ff9mc EEVyGEntL53pmVXar3O0 EPCfrCA3HUQikBtrZwBh yC20Gvy+VUCmeGryw9Xl Xwplk4eaq3vvxXx4 IjMwJSIgdmFsaWduPSJ0 z5KxIy32S95jYPmqASTz WVQxUKTnJAFnlAxbci2a sG8dEk4+PGNvbCB3 hDA3qL7wVAEpGsR2RMwr Y932TcHvtACmHevmt3uq i3aohOb7RbPsZLYugiMq jDtsEOY4v5KpNg03 B47jGEmnVLZsCZBoCJVh SLHimFpmcm5grO0wVq0+ AT2sd8gbpd63lC78bVQ+ OMOiGMQ6gJqsOUly QQMeiM0pSLdzIdE1UOMo OmDavY98aXVeRMhtPb8v cWsbaXpxQL0fRPAqdwye h779LcZqc6xnFHZu gTGxWJmySOG5Q18ha3M5 UKRbYFQcFGQ3zRN5iZ0x bGlnbjogbGVmdDsgdmVy jHwlNVmjHKvoZ519 IHRvcDsnPlBhdGllbnQg CqUzDCl0I2BxNjh5WGGq jDcuOR4buAVwUXcsPz1e hXjerDwaUP6sXCVf ercmu081UdVhw7pxWZDh wOZyTQxkAZI1K06rq4F0 ECDdXSLrIGZ3qJH5jL0b bGlnbjogbGVmdDsg abKciGjuRSidPLpxM927 IHRvcDsnPkJpcnRoIERh bPO8IK85QN36qWJwv4H4 bUH9X5AbSDRctjxc ebwbiYK7MMXpOXMvfY48 Hc4afNzhHg7nAIZoTVB9 XNKwwPNoE7MsdX9zMjRu REYbJJUuW9SvjGQf XOzuJ334SItgMeK1OVNl ydXvK4LlFZHumCphZrQ1 c1D9Ti5NV3Z5BK07MH83 eERmz9V7lVW2Y9Do QTDnlaxbzauixKV9URAf IUHomG89Qt6mcPemPg9y VBSlCZU6BGUrvFHcA6Pz lM4sWzTsVHWjBMYh G9YahYRpAGfdF796VEdj QuH0VCVnbmLkK8ZyXPIr wOgtDjG8d6C5Pj7JLJr7 KR75YP21iRWow2Q7 zGV5C4ZgDXUdqotgdayf vWF1XIRxVXMblK92Dt2z cEilVy2fWRZsXSV9ZKAd gTAsW9HyuP2uCuJr UTDoDFQrW1OuhUGhNTmv C828LRmpWeL6DXIcvpKz O3RwJAUfoEaqYhI5s7Z5 Xn8FSSOhWL06KUJ9 nVT0DH47CF79J3GlPwdt dGFibGU+PHRhYmxlIHdp ZHRoPScxMDAlJyBzdHls GN0vRg9cFBZbIMVf hNukeENcXyNjc7vaWNAd EQgkNV9nlJfgF9ZxnEB5 NPYph5a7Yc96S16sY8Lu dXA+ULVumTM8rBJ4 tG9kHbYaLzN3YNeqQ062 HxIhgDSfKxixw2zfz0gi lOp6SnG8RFUwyuBqbZnx UYI5g9VkTw29Q22l IHdpZHRoPSIxNSUiIHZh jJdmoz8arS3sXy8+PGNv zAC0xKV0yV4lYsJcKfV5 KJjlW356JrEmhDEb Cyxmh5fbi7sjwNc5CySp BFVtalSilWktMEC8n9Or Tp71D5CcaQojx6CcTmh4 ug52pTIhy4D7gZC5 K7GtJGIhwgmxoXVmhZkc WM1xBVLibtlkHOCbaS0n VITfU2f6CdJxAmT7EIkr H7RcjqE6ZDUiqCPg FBceEON5U02bv8Q8ZKNe EDLnVKA7uBO0hX3amDhj bjogbGVmdDsgdmVydGlj WZifXHeaO767IZHx jCgnEIVszD2xUKKqdKAb wUbkNN1wVAOttoetSjkA AnNJJN3rIBfLKSEFMRxO LN5FV0aKRZR9U6Cf Vhe0EIBriCvhLE1mxOHd PUjzRt5npYxcoZixRQ4w GEJlcpcyFWZvjP6rLLVs cDSinDjsLD2cEYXg eyuhy976PfPcSTS7YDXr eEEiD8AeyT2zExSqPNLs NGZwJ2WwpSHmETifS901 BYkdHpV9ACPrcbVj H4NvJHGxyLaoDjB8f1T5 Ln5yAM8lAI6oBVD5LQ61 FV36sOWul6S7cLL0M0Rx ZGRpbmctcmlnaHQ6 MHNoHWPsaJ97qQJgETvk Hc2qn1L9n036BUPtTDXx wK97Ov3auYhbYTYqlMUN fO7cysmuh7pujeux WjEcMPErJSh1QMn0HQSc bNcbDzRtIXX4LgO0AAX7 xQItqB9uaIijmbkjsV8b Oyc+MTcgWWVhcnM8 G3SxTax6HYXsgCcgKH8y fWGaWGsrJq7mwGrydZqt CJ4bYCPgwhuyDWLrbE0n TYWepYHetFlqAK1s CHXkcvmdf663DvWoETO3 NCHwnDGyK7PuoN0aIqAc LZAsCNHxK0NbiTVcKGce J708TCfkZvM1KIFw twDtF5OlDFGhgJhdDgV8 q8T1Ir3VRI0RTOS6W4Wi Wko3DYIcqUuhBI8yzEFu RBzzZq7bvWdcxJkc LQ2vKFVtjdgxDZDliC4l NELfrHZeqJikHN2aVOBt jwxyb858CoCjHWK3CXYf aAGoS4SmdN0kUvLq TBNqYOLjK0McrXGqHQxv B267WMawImJ3OIHyjmWh K3ZxEQOxgRijOmI5o6I4 Dq3BxNIvB7ChG6r4 O0BhErknqYC+CH09FTVk FU47oJYlfRBnh5szcFu8 DkSiDHOeNBG4aDcrRDym e3AbEONkX60twYCh j1S1SWXxcJvhtMErYpWc dBX8dV5gETywbrbnv1ho fpbmXndtu0tdwc72pZ62 X45hWRieBKLsQVWf BOZxJRNjjGwpeo9qwF2d Ii8+OZFvvTD0aQR1eE6e GbZtDnA8NIirX755YvEt iRMoBbcvh7xgd1xd cOh5HhJgHNJtktYioMpv BXP4t0ZbYl79I86dURav ZHRoPSIyMCUiIHZhbGln we3qqJ6rEb7+PC9j n4tkda45hA90xAI+PHRk DDD2iJkcUGjoYLDcvZ9r GGilTzS2KDShWxCrnB27 qVOpEVavCh6onVox rQvjOB2zYOJuaturx311 VdCji8lbABHuxQCjXXrg MZP4V59bd1D4PZHvQLTj FOJ6rRH2yH5erRxa bjogbGVmdDsgdmVydGlj MTgkEIumG553EQKjcTax ZgOjzINnW6quzwJDCM0f OjwvdGQ+PHRkIHN0 wRcsBNuePVEfjZ0yNQUm G3u3DdJxGbR9RNmtN3Fs swM1WKKvvFBiTLJgrTJF nR1jrsytp6oglqai KqEgVZBjYRv9UUu8RLKt uJnzGgSdUYG2EgZ4STZ8 cVCzuG2qfBawwiyqyV4x Oyc+RklOOjwvdGQ+ ODMrPZX3sVaxAYyjDJWx uG8iPIAqE7l7DeVaYkL8 AJhzX1UekkM7JBUchXAd FTKxpXDMfW6kttao i6wcebjiWvOnTCWcDIo6 DEw1LTUleDzmMvKmTHW3 SmE7RZD1iLXovN7djYlr qzymbS8fHgr+TVJO OjwvdGQ+EZIeLJG8iTpz KLrsKMUqdC5wQORxB3p8 WePqNsH6IAitM3NdlsM4 IGJvbGQgMTBwdCBU eS7cjxyen6zniazgJpOl IBXdLBr6JTo6ULRrlNyd YxSqGSB8OsC8HTD0qHEy cL7yaQidmnykmD6o Oyc+YLR9IHW9GE92RS88 L5AvIffzvYOolZT+PHRh YmxlIHdpZHRoPScxMDAl ZgSacTghZH0xHf3q ZGV (more content not included)... Normal [facility] Discharge Instructionson Discharge Instructions [id number] Normal [facility] ED Clinical Summaryon 2021 ED Clinical Summary [facility] - Emergency Department [address] [place] [id number] ED Clinical Summary PERSON INFORMATION Name: NESHA LEE Age: 16 Years Sex: FEMALE : 2005 MRN: Acct#: Visit Reason: Hand injury - Minor; Hand pain-swelling; LT HAND INJURY Arrival: 06/15/2022 11:20:17 Discharge: 06/15/2022 13:34:00 LOS: 000 02:14 Check In: 06/15/2022 11:20:17 Checkout:06/15/2022 13:34:00 Address: [address] [place] [address] PCP: CLEO BLANKENSHIP PROVIDER INFORMATION Provider Role Assigned Unassigned Chacorta RN, Gali Zhao ED Nurse 06/15/2022 11:25:57 Wellington Castanon ED PA 06/15/2022 11:39:11 VITALS INFORMATION Vital Sign Triage Latest Temperature Tympanic Temperature Temporal Artery Pulse Rate 62 bpm 62 bpm O2 Sat 100 % 100 % Respiratory Rate 16 br/min 16 br/min Blood Pressure /58 mmHg /58 mmHg MEDICAL INFORMATION Medications Given: Medication Dose Route ibuprofen 600 mg PO Allergy Information: Skin Therapy PHYSICIAN DOCUMENTATION DISCHARGE INFORMATION: Discharge Disposition: Home Discharge Location: PATIENT EDUCATION INFORMATION Instructions: RICE Therapy for Routine Care of Injuries; Hand Contusion Follow-Up: With: Address: When: [facility] Occupational Health [address] [place] [id number] Within 1 to 2 days Comments: Diagnosis is contusion of the left hand including fingers, from history of dropped a bowl of pizza dough while trying to move it by yourself. Sustained this injury. There is no fracture seen in the hand. As discussed utilize ice therapy help reduce pain and swelling in the left hand, provided information on this topic. May also take jrqi-tmy-mxionps Tylenol ibuprofen. We filled the appropriate Worker's Compensation paperwork, so follow-up with [facility]'s occupational health department in the next 1 to 2 days, they will give you instructions and guide your care. Discussed with ride assembly supervisor here work restrictions and they will accommodate you. Return to the emergency department for worsening symptoms or concerns, worsening hand pain, weakness of hand, any questions may return anytime. DIAGNOSIS: 1:Contusion of left hand including fingers; Contusion of unspecified finger without damage to nail, initial encounter Patient Understands: Yes - Patient/family/careg iver verbalizes understanding of instructions given Comment: Normal [facility] ED Note-Nursingon 06-15-2022 ED Note-Nursing Pt presents to the ED with left hand pain. Pt states she works at a [employer] place and was making dough in a umana. The dough and the umana landed on her left hand. Pt has pain mainly at her pinky finger. There is some bruising. Normal [facility] ED Patient Summaryon 022 ED Patient Summary [facility] - Emergency Department [address] [place], [place] [id number] PATIENT DISCHARGE INSTRUCTIONS Patient Information Name: NESHA LEE Age: 16 Years Date of : 2005 Reason For Visit: Hand injury - Minor; Hand pain-swelling; LT HAND INJURY Arrival Time: 06/15/2022 11:20:17 Primary Care Physician: CLEO BLANKENSHIP Attending Physician: Morales Quick DO Comment: Visit Diagnosis: Diagnoses This Visit Contusion of left hand including fingers (S60.222A) Contusion of unspecified finger without damage to nail, initial encounter (S60.00XA) Hand injury - Minor ([id number]) Hand pain-swelling ([id number]) The Pharmacy at [facility] is open Monday through Monday from 9A to 6P and Monday and Monday from 9A to 5P Prescription Information: If you have been given a prescription for narcotics, seek immediate medical attention if you have any difficulty breathing or any sudden status changes such as confusion and sleepiness. If you or anyone you know is experiencing suicidal thoughts, mental health, alcohol and/or drug addiction problems; contact the Mental Health & Recovery Board [facility] 22/05 Crisis Hotline -Text 4HWSX uw 953180. If you received any narcotics, sedation, or any other medication that causes drowsiness for the next 24 hours, unless otherwise directed: ? Do not drive a car. ? Do not operate machinery such as power tools, lawn mowers, drills, sewing machines, or stoves ? Avoid alcoholic beverages and drugs for allergies, nerves, or sleep ? Do not make important personal or business decisions or sign any legal documents With: Address: When: [facility] Occupational Health [address] [place], [place] [id number] Within 1 to 2 days Comments: Diagnosis is contusion of the left hand including fingers, from history of dropped a bowl of pizza dough while trying to move it by yourself. Sustained this injury. There is no fracture seen in the hand. As discussed utilize ice therapy help reduce pain and swelling in the left hand, provided information on this topic. May also take ofzl-tua-orrdwlt Tylenol ibuprofen. We filled the appropriate Worker's Compensation paperwork, so follow-up with [facility]'s occupational health department in the next 1 to 2 days, they will give you instructions and guide your care. Discussed with ride assembly supervisor here work restrictions and they will accommodate you. Return to the emergency department for worsening symptoms or concerns, worsening hand pain, weakness of hand, any questions may return anytime. Medication Information: The exam and treatment you received today in the [facility] Emergency Department were for an urgent problem and are not intended as complete care. It is important for you to follow up with a doctor, nurse practitioner, or physician?s health care assistant for ongoing care. If your symptoms become worse or you do not improve as expected and you are unable to reach your usual health care provider, you should return to the Emergency Department, we are available 24 hours a day. For those patients who have received Radiology results, the interpretation of your X-ray as given to you by our Emergency Department physician is only a preliminary report. The Radiologist will review your films and if there is a change in the diagnosis you will be notified by phone. Please make sure you have provided a working phone number so we can reach you if necessary. In the event that you had a lab culture while you were a patient in the Emergency Department, you will be notified by phone if there is a need to change your antibiotic. Please make sure you have provided a working phone number so we can reach you if necessary. [facility] Emergency Department has provided you with a complete list of medications post discharge. Please inform your infant babysitter/provider of your visit and for further instruction on these medications. Any specific questions regarding your chronic medications and dosages should be discussed with your primary care physician(s) and/or pharmacist. No Longer Take the Following Medications cephalexin (!-Keflex 500 mg oral capsule) 1 cap(s) Oral 4 times a day for 7 Days. Refills: 0. Additional medications on your home medication list not specifically addressed. Please contact the ordering physician if you have questions about these medications. ibuprofen (ibuprofen 600 mg oral tablet) 1 tab(s) Oral 4 times a day as needed for pain. Refills: 0. Visit Information Allergies: Substance Reaction Symptoms Type Comments Skin Therapy Environment Vital Signs: Vitals and Measurements this Visit (last charted value for your 06/15/2022 visit) Vital Signs This Visit Temperature Temporal: 36.5 DegC Peripheral Pulse Rate: 62 bpm Respiratory Rate: 16 br/min Systolic Blood Pressure: 117 mm (more content not included)... [facility] XR Hand Complete Lefton 05-30 XR Hand Complete Left EXAM: XR Hand Complete Left HISTORY: Crush type injury COMPARISON: Left wrist study dated 06/26/2013 TECHNIQUE: 4 views of the left hand were obtained. FINDINGS: No definite acute fracture or dislocation is seen. No significant focal osseous or articular abnormalities are identified. Mild soft tissue swelling of the little finger at the proximal and mid levels. IMPRESSION: Left hand study fails to demonstrate definite acute fracture or dislocation. Follow-up as needed. Final Dictated by: Wilfrido Maguire MD Dictated DT/TM: 06/15/22 12:22 Signed (Electronic Signature): Wilfrido Maguire MD 06/15/22 12:26 p Technologist: Juliocesar CLAIRE [facility] Coding Summaryon 06-07-2022 Coding Summary HTMLBase 64 WlqbcxzfDPw8rKn+PGhl YWQ+RL6VKHCkQ44wwDFx vG8OX5lYBB9DSFHVPELJ PZ5VDJ7zfSN6LRcvH2Ar biAv ZdpykSSgAY18UFo9QCS7 yWadERkupP9eqSLkR2a7 QvKkHY03rO99RCslROBa MwZ2UuJamzdfnXKq E1hiZvDvcQTmAbh+PHRh YmxlIHdpZHRoPScxMDAl RtItyRaeHZ4xAg6tKWUr LWNvbGxhcHNlOiBj j9jfNHDhSCmvKH8uzYyi B7CbvON3NHWsq2g5Or26 dHI+OZPdMIK8tMkeRZhx d633GrGgb0vzUHG5 zDVcSEqtGBK2S84gq4B9 GPThBKSuOFP6dXP0iM8u mRxlfhlfE4SanZWeUvK6 GLM9eDCctN3otXud shvueV6xFnb+Q91EUQ8E YKISPR1IKrc0P9OiTbce dHI+DJ67ATChPP29bEUn nWCrg3cbkVy8PhVl XPAaDYU7kMpgPDfrz3Sn TJVcZ35bzEOvw8Y7QSZe xZjqeSXbAvFfcKX8tK9i KVpclbcgd8occrmf Ycohr9lwwd91pR15Q57u SObzGMJuKFH4CEKeMKPv jIuunc5ttR8eSz8+IDxj r2dgf0ivwRw8CeTw ZQXdhnAokKmjCLY4r3Zt Vm54Z4SjpEnjn1ImIxu1 cs23eQMgr8A5xRN7WDhc BUEtqK9aVVmlJpO3 EPIpPoAlvH71xLNcOYsk Mw3ohKamxKczWC5vGQGm lxvxPXIohF3hISAysBMr sBkdNY6iRICurrvo y889ImPlUWL3WHHlaGTt I8RmdW2nClDnONLaEVVp G1IolEErSQxgA016MAku JwS2PLFhjwSaX1Rs WSKwqRjwOzY7e5Q0Ng4E d7BpubnsZPA0YRgoRGQ8 JqC1VdPyAwW2W1RdBkr4 NDKafKqdUA9fT6Iw FSTkzofvjlotgKP1GLFc TPMqaP82kXGgNVnsKa0l b7L5j812KIEfOKGrdT41 Di9cvMfkYZFvmQZI fX4fpqwaj9vzvuueLaWo TRHlMMa2TJu4TJOruCcs BzYfECV3OnJ2QPB5nBAr gS9svMkwvskkvD0l Oyc+E60kwB0iQYM1TRY9 vdbpYPFihaPcFE96HL63 K7TrXealpUVmvQP+PGRp jsExsAunUT0vStBg d4pap2TsPDwrB9XlYXMa HEepZsp0XGIpWMH6yAG9 tF2eXFUjHKpjw4O7ePV5 I8LczzXcuz5wt6cv YGDyCPevP56llLJiz1W2 LAZmdWH3GLUakMpoAmAi gB00Unb+NFUurHugu8Bj Srbfi6vej7gbeRr5 IjMwJSIgdmFsaWduPSJ0 n2ApIp21U61zQQkpUHDp JPQbVKHbUBEsfWmofp9g yG1kUr0+PGNvbCB3 jOB8yJ5wBNLfOeC5JYvv R495DbHgnOVzDfrvr8cs v6qwgMx4LeNwECCupdLl lEsmISC3x4NrTo00 T24hSYioYPTiLANuAAOl FZHxlZhmcz0kqU2wQa1+ DB4jp7wlnu77gD41aSC+ BTWxRNU5jPabKMem PPWwmP7oSRwgVuE8FIXt HxEicI76mAKbIXrsRe8u nGesnDjsPC1eBPZwrdri w619XhPiz2izDHIk mOMkCTyrYKC8Q87ae0N3 FLCbAANeAVW1jCI3qC3e bGlnbjogbGVmdDsgdmVy lNftTJiuJVkxG969 IHRvcDsnPlBhdGllbnQg BzXlVGb6K8XaSjh1HDZi wOnlLM2tjDHlBHrsBx4i xTjhtOsuVA0pBFQd aqcir177PoLxs8zaMTVa dHQiIVdnSWU6N80gb7P5 YPQwSSEfVUF0wAT5lI8g bGlnbjogbGVmdDsg vyZbqZwaRSitOVtxR957 IHRvcDsnPkJpcnRoIERh wHQ2VI59NU68xAFfu8W4 fVO7E1JdEVFvzuzr wotubLR4VLTgNTYexD22 Fj6uxNvyTy2cXUMpGFS4 RGKxmPMiU0PssU2mSdPb QPQxOKNjR4ZanVOj CNbwY541DPnqIzX3ZOKb zjYqA6DmOVWvhVawOtW8 n0Z3Jg9GY5B5JJ13JF08 uWHsq8C3aGE4R9Iv TDZudtgatykdlBM1LQIe VKTvdS34Jd9hkPjgIr7c GAYaYQV1YFLaoKQzQ6As eT0gPcTdMSHpOBIl U1YwkRNaJRqdT880WEqn SfI8DWAnpzDjB3FdEQAb jHhrSjY3w4K6Vh1ALBf6 HC59WU87nCUma0L2 mJF6O7YlBFCdbdfelfxt lQP0PFNlUWEbdZ67Iq7n dBtyZv4nPLWnVVP8EPZc lIIuY5KwaN4bNeUl XWNlEFChT2ZutGJtJEbg Q429ECtvAhQ9FJPhmiZl F5CcSUMgbMyuIaU3h3I2 Go2AKYDsJE50APB7 aTA5TD32VD41J9NqBuqf dGFibGU+PHRhYmxlIHdp ZHRoPScxMDAlJyBzdHls KK3uZt7xUMMiRVVe gNidyYLfVgUdi9wkIVRe TBmpTB9hjXasN2JymPJ7 SYZrk6o4Sd79U14oP5Qe dXA+XZKfeGW9wAK5 kV8xVtYhAvL0ZLclQ819 KrZneRCiFnnsh1vcn6lf rNt5HoM2IVEclhBfgJfz QZA7t7CcEr03M76r IHdpZHRoPSIxNSUiIHZh mJzzvc5ooC8tDo1+PGNv hDR9sCK6iQ3qBsYlRfX6 BGwaO207FgIoyVLu Rckxo9kjx1cqfIj6DzVb OLKfvxWynXojLQF6i4Cr Iz72X8CduAhmk2HdEjz3 bc64qTGiy3L8tSS7 V9XvTTYorzxgrBXxxKfk AN4fMWQdfvyqVOBqqU0f XRQcW8v6VePwJiC6CPwk M4WjzfZ7PYGphBVo ONrqOWX1R76mz2Y7MKHh WSFrYWQ5sTL7lB7xkYcv bjogbGVmdDsgdmVydGlj EKpkBUciH573CCVr dYeeKYQpmN3dPQCfpOJw tIhrZV9dKGCtocwuNffN GpTTVI1lVUyWGJKJNQ53 F1XoMkn5LVXnsBdd BA1kvKJqWQrwAe4lyAek oXhvOA1gMZEifxurDSFn kO4sAKFexEEzfNuaHE2f FQQnlvefh216UhYr AJX3XTZdkBXrC8QgoR5q OjDaYMEgPHNoZ6YqoNSu QPvqB396WDsyAqB5FAGw jjHhE1ThYIKdmEsf TgQ5a7Q1Pw6sZH3pWV8m ASY3BF28NG06zVPhd8E8 sUS6V9WjSIClvusdtkdf gXQ3APFlGMVbiL82 qLJkMQmzMo0nv0I3k843 IQSuDONshE48Tp9ecUpe YLBwwIIFsY5qrhizd0pt cjogIzAwMDAwMDt0 DAo3GKDcmJtuStRdTLE9 LeY6NLT5dDExrS7mnRyg thxrrR2yFsx+MTcgWWVh geZ8H7SlHuy3GUMc wTuqJU0geCCuSRkkHk7k gHxnsNenHL3rCHMgajbz LLZclH4wVAGktEOglLqw EQ3qAYFraidup476 QoKuQEB1JPPnvIKcT6Gl jK2nEwMdJJUiBCPdR7Kv oSGzRMevU127DVnaHmS5 FCKnyuLoP4TcIPRz hYkeQxO0l8V6Nt9CQZ9Q ZRR1D3HaYyy1TZUfwMxe PI4ldFYnLEecMi0zjVaz dFbkAJ0dSLXigkdt DOVpwC7oIRIniQPkjBgh TY7rGNPfocfzo457JhMu BWG8FVPjcXYdV8PbbE3m NkGsXWNkOWHaP8Px jGRhXTpnB844DUjxXxG6 USGxwbVvX9FjDCRnyPlc FhW1g0Y5Cg9ISXbgwFX+ VI01ke49X7FtGywb Auf3VYIoLRC1uEH0gL9m IUXpZBryz8E0mAS1I1Lu daPidq3wz2gcOROqTCzb P18boVIpq1D6SHDs vUP0DFWnbBqjJaBvnV00 Oyc+EQGanEzkj7AaGgsg c4lzi2ilsMs4DrWbUOZg haWkkGewJEB9v3Fx Xa98Q46qBShoMLGdRFKe TSArVLQdgBveae1yhE0b Ii8+ROEaoGX1yZF1uM7a FjRzIvD1AYdrY001 YmOzkVNbZmpmq0wym9lh oYn1PxTmLYLphhSuzQbw VFJ1u2UcAd95W5XnbDkp b8ZrSzd4eh04bLUu b6X6hWH8S5FpBOFicwud gNPadAgmWA2tPYIiosji HYWmpX7dNGFfY5m4JiEd WsH5LOaoS9WowsC3 MHEqwDZeLNReiYJYrK9d rlghs0xizzixHyZyOZSj SXj1EPl4IKIzzIwbHcWc TYG4InJ4ZTI3cYZq jC2fpUvnmwbtlI2sUcz+ KUy0n3vwjUVrEM5vrHD5 US08ZW35cMCvj9A4fJV7 H9CuAKCzsrinwmrz kUT3UBGkTBLtgK11Zq6k qUkyOu0jKAIyMFY4KKWh eFKwF4YbhG2gDlTmHHHe RBYzW0VkiCJjNEmj Q600BUdwThY5AXFtfwZy Z6CeJELbgHdtVkT8r8R9 Ss6RKY62JT20QX61lIIa u8R2ePG3E9CcFQAp dymbtcdliGR7LEZmBGJe cI72Rw2dfQjvAq5dAXUv JII5YZApxSBxB7TrrK9u JiErZGKpSJJkB9Yc oKTmVYvjK394NRmdMoC8 XCUrfcPgT0WnLDIgpLja NjY6v0L7Oi8PJr24PH39 CO66eSBvb9X3iCO5 C0IfKADrrltzjyzczWB6 VKQlKIEkmB32Cf8fbOdc Mx0ySBSgQOJ3QWQszXSq X9GcsM1kSnLgGSJg ZWDrT7DhzDEsPTkrC459 KPzrMrO4EQPplcLlQ5Kv CWNsoEpxKqJ3t6A0Qu2W AYrpbur1B0RvPepb dHI+MU60VUQcHL95lIMa sGYff4loqZr0GlXkJJVl LXZ1kPbrPGqjj2XzVMGt G46qjAKol7P1POVz bGx (more content not included)... [facility] Coding Summary HTMLBase 64 KwvwqofePQi4lBv+PGhl YWQ+NV8SOEZsL51ikZIn kJ3ZY8cKJP0HUIFHMVAZ KI9CWC9dnIW7AIdmZ4Mi biAv HvdplVQuGG63DEy2QLQ9 xOnzQUuznA8xjHVdM4i1 ZpCrZK33pD30TLlpCIXb YiC1XcRbfuwslLXs Z9awYiVxqWVgDrv+PHRh YmxlIHdpZHRoPScxMDAl QwYbyHpbIG2oUv8lUTCu LWNvbGxhcHNlOiBj y2xnIJAsPYcwCQ5jjTry E9KysHW2WPCzc4a6Oo76 dHI+LJIaLYM1dWinZEgz u394QnKtc0nqJSJ6 dEFsACkqSDC7E87ak9F1 ECAqWTMuZPV1lPH2nP4b wQyddfcjP0IatQSpYzQ2 AUN1aSMpmK6ylIvt jezghA8rHry+G17GAI4N OOZGHI0OFnj8B2YqRhwr dHI+FW92HGHqYZ34iXOp qJPkg3rwtNt3CdPd NWAmNCS0zVwwTEydz7Eg WUPtX46nqPIqp2Z7DSFu yXpidWRgMfOmaTL5jG5d IOhgcelkv5opgahw Mtyem0cfpv18hB66X36l WFpcQPNxXJX2BZRbZCRp kFuxhf6elN0tDf6+IDxj c1syu0tioQo7BiZh ZXZimpAobBsmQNQ2j5Ef Mb75H0AiaVivw1NcDdv7 ys42wSWeu2K6rQC8LVqh QVGfuA2bNIbdAaV5 FWUnFzQxpA19iLBbSYxb Pk1zeXsgsSefST4mHCVu sbgnYUZrmZ2sSEWznYZh uXxoKD8qRGEjbccq e672AdVpJTT8FKGsuZGs G3YudR5uIgUfKLKnNXQd R3EamBPnBHbbZ878ONnx XbZ7RHLffgYuJ9Sz BAFgjIleYwR7m1H8Su1I v5DmrzkuAPD0QWibYZU3 YtW9XpOjXpU7L7OrDuo0 GVNodTqyAA3tF8Xd OMAaquuqllotpCG0HWLu GSVahS24aATfBYasXc4h l3G7o826SXVxQUOhaF67 Bh9daUicHBJufFFI qY4pigavb0ikxixtDrIn VNFmGWo9OUi4RGHujXxw IhFfILA7JkT9ODE3hFYt fV0heYwrdbhniL1q Oyc+I77gwC3mBAK8VVM5 nkjqNAXgkkBvFY30PK23 X0PyQmyupAAdeCA+PGRp lgXqrDlkVH2aXzXt p8apq7PpMHqaZ2VgETOq QKtoEgk1SOPnIVR8lNW2 uI9oCBHtYTpzy8N0gTR9 O3KnsqOorp1tf9lr WULwQPoqB34esGDfq2E5 UGLwcZB4FTHjlYwzCjZy dJ44Ira+EJXojWphx4Si Aphwm5iwb9wdqXb7 IjMwJSIgdmFsaWduPSJ0 z7QhXj08Y67aSDbqYBQf UREdGTRtCSPqhDxrxn9k uC1kBc5+PGNvbCB3 dWC9gD4nBCGrUvN0PVbv V640GmGumZHxJqpac7ve g0rywEo5WvLwUELnjrPy nVzyIAO0w5DvTn32 S55tPEfaULDjXMTaJJAh ZLCqsVudwy8nnP2bDs6+ PS7wv4seyi45dE11tFG+ AGKjRHO8kKmxRDid LKVfjQ1cVRdkDkN8WJCx EfSmmU33hBWiEFoyHp4w dAbquGzfJD2tWAGowpmj h965UaBrf5fkANQn vANwTMivSSX4Z78rr5F1 RQLiRUYmRNR9eWQ0tL9w bGlnbjogbGVmdDsgdmVy vXnzMJnlLSmdO187 IHRvcDsnPlBhdGllbnQg BvUlZEs8C9PmSwe7WAGj qZmmJP9oeLVlCNtgBw2c dHkrtHzyDY5gSBMs uapdq887PlJhr6ukVMUt eRUzLDnxMFS5F35vv4B9 SNNwEHZiXIB8vCB5iE5f bGlnbjogbGVmdDsg ljCcxQqqOHbwJBgtM739 IHRvcDsnPkJpcnRoIERh aEC1PL61BN73dCQos2D3 zEU7O7FsTKMmurvo tzwlsMQ1RRCiMOSgmA75 Ge3ffXtoCq3tWUNiYBM4 PRRbcVOuL9VxyF3lMdSt LYSkHLTuD7HdjGBq CZpaQ473IWknMzG4YLTs vsGdP3UxHKOehDccMxI0 h0L6Ao3WE1Z5XO78TM26 xOPly7O8dXV5J2Da DLGtloasrfujmIZ5AUDh CMFetH41Vn0unMpgEg2z WVHjZTS5AUZexDUtL9Vo yV7nWjDfIPJxTJMn H7WdpTLlCYkyC255PUap KiN7REDhufBxM7HpIVYx zQhcSbS4f1K1Be4AIEx0 OI25DG54zQYip5H3 iPN1Z1ThVMQikakykegu xTF1AYFyGWSbmB82Km3s bYzgUw3iOHDfAGG8BJQi xOBaV4EbiQ7iKuZs SEArCVHzI2NsrZJnPWcb V368SMnxZqU9AETqsuBa C0JrCEOgsMsfWdO0f2C7 Fy7YEUMsNE25BHL6 aRX3UN16MA29S2PdVxss dGFibGU+PHRhYmxlIHdp ZHRoPScxMDAlJyBzdHls ZT4mMq4zSDAkFCYp jWdgiDWpSoBfy6hkKTVc GFbbFB7tyZruV0BlnJY8 VIQyp2p0Zu73F36aR6Zk dXA+IKMvuPA9qIJ1 mE1jAjHfKcD4XKllI774 OyVjoBRyLbnhp8stz6aw rRi8XhB4VQAhhqUklNrz TAR7a5IfUu15U90g IHdpZHRoPSIxNSUiIHZh sRqdmd6ajC3iEi8+PGNv dBK6cZJ6pW3mMhUlLdU5 RYyjD842HjXnxRIn Wpnmk6wne6epwUt4CmCu NJBjuqZlnBkbXHW9h9Uc Ww29O0TezTfms4JsKhk6 xw17tWAfr0S0dWM4 E3QrFCWnbntdgCXrxCba RK2rKWSgiqrkEHBubZ3o YCJxH3w5QuAbJjJ5MFlf Z1PvglI7KYAxiNYc ORqfKMZ7I28eg2M2BGWq VMTeJCV2dEJ3tR9cnCvc bjogbGVmdDsgdmVydGlj ZEbpBMynC789WMCa nEjaZYZqbE2iLZStaOJr yElcGF5bTTZvaywuCiiC XyXDQC4eTBgSKQNSNR12 N7SlOpf2SUIzuRtu ZJ0dfTZrDYoeAf9leUec gAdbXV3gTEDnyokfHXOa tU0dUXUrnFOnbRogQC3r ZSLdislbz323SpTp QFQ7TPSxuREmV0WnyO6j WjHnDDUgKXUdB3OhzJMk APnnR161XWfuKxG7PDSw ytRfR1ZgYBMvhCfu KpU8e2J6Ur4oVQ8rHB5l [id number] hQE2B6JoEYEvxxptooii nIS9JWKhMZYdoW71 iSExNHbdFr2ku8G5d614 JIJeJHCvrV37Bk3eaSpn PTDslNIRbS2xgviic0qn cjogIzAwMDAwMDt0 UMg2WLJcyNjcXjCyFZH7 UfQ5NLO6sYTmxS3urLhn ragybK6xNrb+MTcgWWVh sfX6I7EdQbn6UMHr nYikCE5hxRZnONgqXe3b dGindTzaTI4uQSQsuikj LTGywM9bCOUnnYFjjNqj NU7tKZJpwyakn695 LfWzSSE3VACbsPOgF7Nc pW4qRtYjTAUmILOvN6Bp cFTxUWxhB738IKpyUrP0 WUKsszYnW2AfKTLm eEibHpD8b8K2Vx8YYX1L CWC1Z1OxSop0ZKSleDrm MX8kwZTcLQrqFo1otUal cRjfUS3cOAJzgato IKVnuG9oNZKvgZRkvCym HI3tIHTjayhdk983VcUj MFZ1ZUFotSFsA6WtgO3b UsLvQXQtKDGfI0Sf sCFsRQifP139RCurKaL6 XMEhjhEwF0ZlITLxuMci HpQ9z7T5Ae0BaKVfJ4Ep D3f9X9DeMoxyqWD+ UF98EDWfWO44oTPnaBSc q1ylfZx6KiJcRAXzDKG5 rWsnGFosy9TkCMLaJ55y aCOor9H6FCRkwMap mCRaDnYrjDE1uW8wXTug hjvay4bkhwziWtutc3xi vw80eP56P62wARhzRXKz PSIzMCUiIHZhbGln ey6gsL1iRz6+PGNvbCB3 lER6tA5eWaSyAmO0GTia N074VwDosKZiGogmr3gy q0iayZk5IuNwKHZr iwShnAvcEZJ8f5EoGz91 F88aUBciMYSwEEXuKOAd NTFscOnipd1zzW6mLa8+ SK6kj9tiaz38hK89 dHI+LTDqNMO3gJscJCbs YJCypF4eWGaoZjU8ZTFv InInpN90oEEzMNwiTj2b gKtjnJdjHJ4sVPOe jrsuy683VoYgi8gwKUTf rOKtDOluLYO1F75fb7N8 FZFjPONmBOU6lRY9hQ0p bGlnbjogbGVmdDsg axYdjOipUPndZMhjI852 TLKgzEaqBtNylEAbK8vl koWVCY6dImhyrZP+PHRk CSF8eRgmGWodXLUj jI1rUJCeG0o9MgHsNkF1 EXdtN2FhidE6LRLvdTIq JREhaRHOuI6kpricz1uo cjogIzAwMDAwMDt0 EBm5SZKksYidRePvPIP9 ZkC2HYS9hTQqnR0fjCgg wrrjdZ5pEyl+RklOOjwv dGQ+GAHdTUZ1hWgh IXxkMJWvhX3sZYZgL9o3 LrHcYkQ5WAvhC9MpceV8 AWFqwGFkEJProSVLpG4n wdsst9sskoxwHaDn VOPtGVw5HYg3NSEkoPme ObNqCEU3ViQ2MVI8nGYg zC4tfUyfwcmoyS1pMxl+ TVJOOjwvdGQ+PHRk VZS6sNrlSVwrDOMrtC9a GKUgH9h8BrNkHjZ3XEhb W0OqwwE3NBIxnVGwXMFy cDAKiG1dvboqw0cl vuxdVpYhQNHqLWb0KNz5 ZXMdvMesVdZgIKF6GmX7 WLU4wONddJ5kvDggklcl eT8hOqh+XNG3IGT7 ES27SO63S1VsUsvreIZb bGU+PHRhYmxlIHdpZHRo OJpyKYZeMsTjoSfmQG7h Jv8iVXHhTCJecZox cHN (more content not included)... [facility] ED Note-Nursingon 05-30-2022 ED Note-Nursing Patient father contracted around wound culture, requests Rx be called to [facility] pharmacy in [place]. Rx was called in. [facility] ED Note-Nursing Patient father called and left message no answer. [facility] ED Note - Otheron 05-29-2022 ED Note - Other [id number] 3#[id number] [facility] ED Note-Nursingon 05-29-2022 ED Note-Nursing 05-28-22 Called Emergency contact Phone # No answer [phone] 05-29-22 Called Emergency contact Layton message left @[phone] [facility] Wound Cultureon 05-28-2022 Wound Culture Heavy growth of Methicillin-Resistan t Staphylococcus aureus Rare epithelial cells Rare White Blood Cells No organisms seen. ORGANISM MRSA ----- SUSCEPTIBILITY ---- ORGANISM ID: 1 ANTIBIOTIC INTERPRETATION KATT STATUS ORGANISM MRSAMRSA Amox/Cla R <=4/2 Verified Amp R <=2 Verified Amp/Sul R <=8/4 Verified Ceftri R <=8 Verified Cipro S <=1 Verified Clinda S <=0.5 Verified Dapto S <=0.5 Verified Eryth S <=0.5 Verified Gent S <=4 Verified Levo S <=1 Verified Linez S 2 Verified Nitro <=32 Verified Ox R >2 Verified Pen R 2 Verified Rif S <=1 Verified Tetra S <=4 Verified Tri/Sulf S <=0.5/9.5 Verified Vanc S 2 Verified Normal [facility] Comment on above: Performed By: #### [id number] ####[facility] (DEFAULT)[address] [place] [address] ED Clinical Summaryon 2021 ED Clinical Summary [facility] - Emergency Department [address] [place], [place] [id number] ED Clinical Summary PERSON INFORMATION Name: JARROD LEE Age: 16 Years Sex: FEMALE : 2005 MRN: Acct#: Visit Reason: Skin problem; RT ARMPIT ABSCESS Arrival: 05/25/2022 22:48:44 Discharge: 05/25/2022 23:45:00 LOS: 000 00:57 Check In: 05/25/2022 22:48:44 Checkout:05/25/2022 23:45:00 Address: [address] [place] [address] PCP: CLEO BLANKENSHIP PROVIDER INFORMATION Provider Role Assigned Unassigned Rashi RN, Lawanda ED Nurse 05/25/2022 22:58:46 Dee Sandy D.O. ED Provider 05/25/2022 22:59:05 VITALS INFORMATION Vital Sign Triage Latest Temperature Tympanic Temperature Temporal Artery Pulse Rate 86 bpm 86 bpm O2 Sat 98 % 98 % Respiratory Rate 18 br/min 18 br/min Blood Pressure /81 mmHg /81 mmHg MEDICAL INFORMATION Medications Given: Medication Dose Route cephalexin 500 mg PO Allergy Information: Skin Therapy PHYSICIAN DOCUMENTATION DISCHARGE INFORMATION: Discharge Disposition: Home Discharge Location: Home PATIENT EDUCATION INFORMATION Instructions: Incision and Drainage, Care After; Skin Abscess, Dqxz-xq-Ftmq Follow-Up: With: Address: When: CLEO BLANKENSHIP [address] [place] [phone] [facility] (1) Within 3 to 5 days DIAGNOSIS: Axillary abscess Patient Understands: Yes - Patient/family/careg iver verbalizes understanding of instructions given Comment: Normal [facility] ED Note - Physicianon 2021 ED Note - Physician Patient: JARROD LEE Age: 16 years Sex: FEMALE : 2005 Associated Diagnoses: Skin problem; Axillary abscess Author: Dee Sandy D.O. Basic Information Time seen: Date & time 05/25/2022 23:37:00. History source: Patient, father. Arrival mode: Private vehicle. History limitation: None. Additional information: Chief Complaint from Nursing Triage Note : Chief Complaint 05/25/2022 23:05 EDT Chief Complaint Started as a pimp under right arm pit. Popped it and it became bigger. Noticed a couple days ago. . History of Present Illness This 16-year-old female is brought to the emergency department by her father for evaluation of a right axillary abscess. She states that is not unusual for her to get abscesses in this area. The symptoms started approximately 1 week ago. She has been squeezing it and small amount of drainage has been coming out of it. She does shave her armpits. She does not have any abscess or skin abnormality in the left armpit area. She does not have a history of hidradenitis. According to her father she has never been diagnosed with MRSA. She has not had a fever or any body aches. No additional skin lesions or complaints. Review of Systems Constitutional symptoms: Negative except as documented in HPI. Skin symptoms: Right axillary abscess. Eye symptoms: Negative except as documented in HPI. ENMT symptoms: Negative except as documented in HPI. Respiratory symptoms: Negative except as documented in HPI. Cardiovascular symptoms: Negative except as documented in HPI. Gastrointestinal symptoms: Negative except as documented in HPI. Genitourinary symptoms: Negative except as documented in HPI. Musculoskeletal symptoms: Negative except as documented in HPI. Neurologic symptoms: Negative except as documented in HPI. Psychiatric symptoms: Negative except as documented in HPI. Endocrine symptoms: Negative except as documented in HPI. Hematologic/Lymphati c symptoms: Negative except as documented in HPI. Allergy/immunologic symptoms: Negative except as documented in HPI. Additional review of systems information: All other systems reviewed and otherwise negative. Health Status Allergies: Allergic Reactions (Selected) Unknown Skin Therapy- No reactions were documented.. Past Medical/ Family/ Social History Medical history: No active or resolved past medical history items have been selected or recorded.. Surgical history: No active procedure history items have been selected or recorded.. Family history: No family history items have been selected or recorded.. Social history: Social & Psychosocial Habits Alcohol 05/25/2022 Alcohol Use: Never Substance Abuse 05/25/2022 Substance use: Never Tobacco 05/25/2022 Smoking tobacco use: Never tobacco user Electronic Cigarette/Vaping 05/25/2022 Electronic Cigarette Use: Never . Problem list: No qualifying data available . Physical Examination Vital Signs Vital Signs 05/25/2022 23:05 EDT Temperature Temporal 36.9 DegC Peripheral Pulse Rate 86 bpm Respiratory Rate 18 br/min Systolic Blood Pressure 120 mmHg Diastolic Blood Pressure 81 mmHg SpO2 98 % Oxygen Therapy Room air . Measurements 05/25/2022 23:09 EDT Weight Dosing 76.660 kg 05/25/2022 23:09 EDT Height/Length Dosing 177.800 cm 05/25/2022 23:05 EDT Height/Length Estimated 177.800 cm Weight Estimated 76.660 kg . Vital signs reviewed, the patient is afebrile with a normal pulse, normal blood pressure, she is not hypoxic with pulse ox of 98% on room air. General: Alert, no acute distress, Well-appearing female, no respiratory distress. Skin: 1 cm soft, fluctuant abscess in the right axilla, there is a yellow head on it and a small amount of pururlent drainage is expressed when pressure is applied, no local lymphadenopathy or local cellulitis noted, Healing new tattoo on left forearm with local erythema consistent with normal healing. Head: Normocephalic, atraumatic. Eye: Pupils are equal, round and reactive to light, extraocular movements are intact, normal conjunctiva, vision grossly normal. Cardiovascular: Regular rate and rhythm, No murmur, Normal peripheral perfusion, No edema. Respiratory: Lungs are clear to auscultation, respirations are non-labored, breath sounds are equal, Symmetrical chest wall expansion. Musculoskeletal: Normal ROM, normal strength, no tenderness, no swelling. Neurological: Alert and oriented to person, place, time, and situation, No focal neurological deficit observed, CN II-XII intact, normal sensory observed, normal motor observed, normal speech observed, normal coordination observed. Lymphatics: No lymphadenopathy. Psychiatric: Cooperative, appropriate mood & affect, normal judgment, non-suicidal. Medical Decision Making Orders Launch Orders Pharmacy: cephalexin (Order): 500 mg, PO, Once, Launch Orders Miscellaneous Request: Excuse from Work/School (Order): 05/25/2022 23:2 (more content not included)... Normal [facility] ED Patient Summaryon 022 ED Patient Summary [facility] - Emergency Department [address] [place] [address] PATIENT DISCHARGE INSTRUCTIONS Patient Information Name: JARROD LEE Age: 16 Years Date of : 2005 Reason For Visit: Skin problem; RT ARMPIT ABSCESS Arrival Time: 05/25/2022 22:48:44 Primary Care Physician: CLEO BLANKENSHIP Attending Physician: Dee Sandy D.O. Comment: Visit Diagnosis: Diagnoses This Visit Axillary abscess (L02.419) Skin problem ([id number]) Prescription Information: If you have been given a prescription for narcotics, seek immediate medical attention if you have any difficulty breathing or any sudden status changes such as confusion and sleepiness. If you or anyone you know is experiencing suicidal thoughts, mental health, alcohol and/or drug addiction problems; contact the [facility] 22/05 Crisis Hotline -text 4hope to 741741. If you received any narcotics, sedation, or any other medication that causes drowsiness for the next 24 hours, unless otherwise directed: ? Do not drive a car. ? Do not operate machinery such as power tools, lawn mowers, drills, sewing machines, or stoves ? Avoid alcoholic beverages and drugs for allergies, nerves, or sleep ? Do not make important personal or business decisions or sign any legal documents With: Address: When: CLEO BLANKENSHIP [address] [place], [place] [address]herson melodie [place], [place] [id number] Business (1) Within 3 to 5 days Medication Information: The exam and treatment you received today in the [facility] Emergency Department were for an urgent problem and are not intended as complete care. It is important for you to follow up with a doctor, nurse practitioner, or physician?s health care assistant for ongoing care. If your symptoms become worse or you do not improve as expected and you are unable to reach your usual health care provider, you should return to the Emergency Department, we are available 24 hours a day. For those patients who have received Radiology results, the interpretation of your X-ray as given to you by our Emergency Department physician is only a preliminary report. The Radiologist will review your films and if there is a change in the diagnosis you will be notified by phone. Please make sure you have provided a working phone number so we can reach you if necessary. In the event that you had a lab culture while you were a patient in the Emergency Department, you will be notified by phone if there is a need to change your antibiotic. Please make sure you have provided a working phone number so we can reach you if necessary. [facility] Emergency Department has provided you with a complete list of medications post discharge. Please inform your infant babysitter/provider of your visit and for further instruction on these medications. Any specific questions regarding your chronic medications and dosages should be discussed with your primary care physician(s) and/or pharmacist. New Medications Printed Prescriptions cephalexin (!-Keflex 500 mg oral capsule) 1 cap(s) Oral 4 times a day for 7 Days. Refills: 0. ibuprofen (ibuprofen 600 mg oral tablet) 1 tab(s) Oral 4 times a day as needed for pain. Refills: 0. Visit Information Allergies: Substance Reaction Symptoms Type Comments Skin Therapy Environment Vital Signs: Vitals and Measurements this Visit (last charted value for your 05/25/2022 visit) Vital Signs This Visit Temperature Temporal: 36.9 DegC Peripheral Pulse Rate: 86 bpm Respiratory Rate: 18 br/min Systolic Blood Pressure: 120 mmHg Diastolic Blood Pressure: 81 mmHg SpO2: 98 % Oxygen Therapy: Room air Measurements This Visit Height/Length Dosin.800 cm Height/Length Estimated: 177.800 cm Weight Dosin.660 kg Weight Estimated: 76.660 kg Problems List: Problem Onset Comments No Problems found Patient Education Incision and Drainage, Care After This sheet gives you information about how to care for yourself after your procedure. Your health care provider may also give you more specific instructions. If you have problems or questions, contact your health care provider. What can I expect after the procedure? After the procedure, it is common to have: ? Pain or discomfort around the incision site. ? Blood, fluid, or pus (drainage) from the incision. ? Redness and firm skin around the incision site. Follow these instructions at home: Medicines ? Take kqiw-hiu-nxyjnai and prescription medicines only as told by your health care provider. ? If you were prescribed an antibiotic medicine, use or take it as told by your health care provider. Do not stop using the antibiotic even if you start to feel better. Wound care Follow instructions from your health care provider about how to take care of your wound. Make sure you: ? Wash your morris (more content not included)... Normal [facility] Encounters Encounter Date Encounter Type Care Provider Facility Start: 07-10-2024 End: 07-10-2024 Emergency department patient visit CLEO BLANKENSHIP [facility] Start: 07-10-2024 End: 07-11-2024 Emergency department patient visit JIM MALONEY [facility] Start: 03-26-2024 End: 03-26-2024 Emergency department patient visit CLEO BLANKENSHIP [facility] Start: 03-26-2024 End: 03-27-2024 Emergency department patient visit SELVIN DAMICO [facility] Start: 10-02-2023 End: 10-02-2023 ambulatory CLEO BLANKENSHIP Not Available Start: 08-16-2022 End: 08-16-2022 ambulatory [facility] Facility:[facility] Start: 07-20-2022 End: 07-21-2022 Emergency department patient visit [facility] Facility:[facility] Start: 07-06-2022 End: 07-07-2022 ambulatory [facility] Facility:[facility] Start: 06-28-2022 End: 06-29-2022 ambulatory [facility] Facility:[facility] Start: 06-19-2022 End: 06-19-[address] CLEO BLANKENSHIP Facility:[facility] Start: 06-18-2022 End: 06-19-[address] CLEO BLANKENSHIP Facility:[facility] Start: 06-16-2022 End: 06-18-2022 ambulatory [facility] Facility:[facility] Start: 06-16-2022 End: 07-12-2022 ambulatory Wellington DHALIWAL Facility:[facility] Start: 06-15-2022 End: 06-15-2022 Emergency department patient visit Wellington DHALIWAL Facility:[facility] Start: 05-26-2022 End: 05-26-2022 Emergency department patient visit Dee Sandy D.O. Facility:[facility] Start: 05-26-2022 End: 05-26-2022 ambulatory CLEO Jacqueline BLANKENSHIP Facility:[facility] Payers Date Payer Category Payer Unknown [id number] 2022 Medicaid [id number] 2005 Unknown [id number] [id number] 2004 Unknown [id number] 2.16.8 [id number] 2004 Unknown [id number] 2.16.8 40.1.586620.3.579.2.1286 2004 Unknown [id number] 2.16.8 40.1.952334.3.579.2.1286 2004 Unknown [id number] 2.16.8 40.1.797493.3.579.2.1286 2004 Unknown [id number] 2.16.8 40.1.150612.3.579.2.1286 1986 Unknown [id number] 2.16.84 0.1.570431.3.579.2.593 1986 Unknown [id number] 2.16.84 0.1.289316.3.579.2.593 1986 Unknown [id number] 2.16.84 0.1.970158.3.579.2.718 1986 Unknown [id number] 2.16.84 0.1.356701.3.579.2.718 1986 Unknown [id number] 2.16.84 0.1.095976.3.579.2.718 1986 Unknown [id number] 2.16.84 0.1.311971.3.579.2.718 1980 Unknown [id number] 2.16.84 0.1.559322.3.579.2.718 1980 Unknown [id number] 2.16.84 0.1.451846.3.579.2.718 1980 Unknown [id number] 2.16.84 0.1.552531.3.579.2.71 1980 Unknown [id number] 2.16.84 0.1.708768.3.579.2.71 1980 Unknown [id number] 2.16.84 0.1.397458.3.579.2.718 1959 Unknown [id number] 1959 Unknown [id number] Clinical Note 08-16-2022 Note Date & Type Note Facility 08-16-2022 Note Patient Education Materials F[facility]ws: [facility] Clinical Note 07-20-2022 Note Date & Type Note Facility 07-20-2022 Note Patient Education Materials [facility]: [facility] Clinical Note 07-06-2022 Note Date & Type Note Facility 07-06-2022 Note Patient Education Materials [facility]: [facility] Clinical Note 06-28-2022 Note Date & Type Note Facility 06-28-2022 Note Patient Education Materials [facility]: [facility] Clinical Note 06-16-2022 Note Date & Type Note Facility 06-16-2022 Note Patient Education Materials F[facility]: [facility] Clinical Note 06-15-2022 Note Date & Type Note Facility 06-15-2022 Note Education Materials Orthopedics RICE Therapy for Routine Care of Injuries The routine care of many injuries includes rest, ice, compression, and elevation (RICE therapy). RICE therapy is often recommended for injuries to soft tissues, such as muscle strain, sprains, bruises, and overuse injuries. It can also be used for some bone injuries. Using RICE therapy can help to relieve pain and lessen swelling. Supplies needed: ? Ice. ? Plastic bag. ? Towel. ? Elastic bandage. ? Pillow or pillows to raise (elevate) the injured body part. How to care for your injury with RICE therapy Rest Rest your injury. This may help with the healing process. Rest usually involves limiting your normal activities and not using the injured part of your body. Generally, you can return to your normal activities when your health care provider says it is okay and you can do them without much discomfort. If you rest the injury too much, it may not heal as well. Some injuries heal better with early movement instead of resting for too long. Talk with your health care provider about how you should limit your activities and whether you should start yvaxz-cz-kkmfha exercises for your injury. Ice Ice your injury to lessen swelling and pain. Do not apply ice directly to your skin. ? Put ice in a plastic bag. ? Place a towel between your skin and the bag. ? Leave the ice on for 20 minutes, 2?3 times a day. Use ice on as many days as told by your health care provider. Compression Put pressure (compression) on your injured area to control swelling, give support, and help with discomfort. Compression may be done with an elastic bandage. If an elastic bandage has been applied, follow these general tips: ? Use the bandage as directed by the maker of the bandage that you are using. ? Do not?wrap the bandage too tightly. That may block (cut off) circulation in the arm or leg in the area below the bandage. ? If part of your body beyond the bandage becomes blue, numb, cold, swollen, or more painful, your bandage is probably too tight. If this occurs, remove your bandage and reapply it more loosely. ? Remove and reapply the bandage every 3?4 hours or as told by your health care provider. ? See your health care provider if the bandage seems to be making your problems worse rather than better. Elevation Elevate your injured area to lessen swelling and pain. If possible, elevate your injured area at or above the level of your heart or the center of your chest. Contact a health care provider if: ? Your pain and swelling continue. ? Your symptoms are getting worse rather than improving. Having these problems may mean that you need further evaluation or imaging tests, such as X-rays or an MRI. Sometimes, X-rays may not show a small broken bone (fracture) until days after the injury happened. Make a follow-up appointment with your health care provider. Ask your health care provider, or the department that is doing the imaging test, when your results will be ready. Get help right away if: ? You have sudden severe pain at or below the area of your injury. ? You have redness or increased swelling around your injury. ? You have tingling or numbness at or below the area of your injury and it does not improve after you remove the elastic bandage. Summary ? The routine care of many injuries includes rest, ice, compression, and elevation (RICE therapy). Using RICE therapy can help to relieve pain and lessen swelling. ? RICE therapy is often recommended for injuries to soft tissues, such as muscle strain, sprains, bruises, and overuse injuries. It can also be used for some bone injuries. ? Seek medical care if your pain and swelling continue or if your symptoms are getting worse rather than improving. This information is not intended to replace advice given to you by your health care provider. Make sure you discuss any questions you have with your health care provider. Document Revised: 12/21/2020 Document Reviewed: 07/06/2018 Elsevier Patient Education ? 2020 [employer] Hand Contusion A hand contusion is a deep bruise to the hand. Contusions are the result of a blunt injury to tissues and muscle fibers under the skin. The injury causes bleeding under the skin. The skin overlying the contusion may turn blue, purple, or yellow. Minor injuries may cause a painless contusion, but more severe injuries may cause contusions that stay painful and swollen for a few weeks. What are the causes? This condition is usually caused by a hard hit or direct force to your hand, such as having a heavy object fall on your hand. What are the signs or symptoms? Symptoms of this condition include: ? A swollen hand. ? Pain and tenderness in your hand. ? Discoloration of your hand. The area may have redness and then turn blue, purple, or yellow. How is this diagnosed? This condition is diagnosed based on: ? A phy (more content not included)... [facility] Clinical Note 05-26-2022 Note Date & Type Note Facility 05-26-2022 Note Education Materials Infectious Disease Incision and Drainage, Care After This sheet gives you information about how to care for yourself after your procedure. Your health care provider may also give you more specific instructions. If you have problems or questions, contact your health care provider. What can I expect after the procedure? After the procedure, it is common to have: ? Pain or discomfort around the incision site. ? Blood, fluid, or pus (drainage) from the incision. ? Redness and firm skin around the incision site. Follow these instructions at home: Medicines ? Take ehag-ggs-pfuxszn and prescription medicines only as told by your health care provider. ? If you were prescribed an antibiotic medicine, use or take it as told by your health care provider. Do not stop using the antibiotic even if you start to feel better. Wound care Follow instructions from your health care provider about how to take care of your wound. Make sure you: ? Wash your hands with soap and water before and after you change your bandage (dressing). If soap and water are not available, use hand fire manager. ? Change your dressing and packing as told by your health care provider. ? If your dressing is dry or stuck when you try to remove it, moisten or wet the dressing with saline or water so that it can be removed without harming your skin or tissues. ? If your wound is packed, leave it in place until your health care provider tells you to remove it. To remove the packing, moisten or wet the packing with saline or water so that it can be removed without harming your skin or tissues. ? Leave stitches (sutures), skin glue, or adhesive strips in place. These skin closures may need to stay in place for 2 weeks or longer. If adhesive strip edges start to loosen and curl up, you may trim the loose edges. Do not remove adhesive strips completely unless your health care provider tells you to do that. Check your wound every day for signs of infection. Check for: ? More redness, swelling, or pain. ? More fluid or blood. ? Warmth. ? Pus or a bad smell. If you were sent home with a drain tube in place, follow instructions from your health care provider about: ? How to empty it. ? How to care for it at home. General instructions ? Rest the affected area. ? Do not take baths, swim, or use a hot tub until your health care provider approves. Ask your health care provider if you may take showers. You may only be allowed to take sponge baths. ? Return to your normal activities as told by your health care provider. Ask your health care provider what activities are safe for you. Your health care provider may put you on activity or lifting restrictions. ? The incision will continue to drain. It is normal to have some clear or slightly bloody drainage. The amount of drainage should lessen each day. ? Do not apply any creams, ointments, or liquids unless you have been told to by your health care provider. ? Keep all follow-up visits as told by your health care provider. This is important. Contact a health care provider if: ? Your cyst or abscess returns. ? You have a fever or chills. ? You have more redness, swelling, or pain around your incision. ? You have more fluid or blood coming from your incision. ? Your incision feels warm to the touch. ? You have pus or a bad smell coming from your incision. ? You have red streaks above or below the incision site. Get help right away if: ? You have severe pain or bleeding. ? You cannot eat or drink without vomiting. ? You have decreased urine output. ? You become short of breath. ? You have chest pain. ? You cough up blood. ? The affected area becomes numb or starts to tingle. These symptoms may represent a serious problem that is an emergency. Do not wait to see if the symptoms will go away. Get medical help right away. Call your local emergency services (911 in the [place] Do not drive yourself to the hospital. Summary ? After this procedure, it is common to have fluid, blood, or pus coming from the surgery site. ? Follow all home care instructions. You will be told how to take care of your incision, how to check for infection, and how to take medicines. ? If you were prescribed an antibiotic medicine, take it as told by your health care provider. Do not stop taking the antibiotic even if you start to feel better. ? Contact a health care provider if you have increased redness, swelling, or pain around your incision. Get help right away if you have chest pain, you vomit, you cough up blood, or you have shortness of breath. ? Keep all follow-up visits as told by your health care provider. This is important. This information is not intended to replace advice given to you by your health care provider. Make sure you discuss any questions you have with your health care provider. Document Revised: 09/16/2019 Document Reviewed: 09/16/2019 [employer] (more content not included)... [facility] Summary Purpose Family History No Family History Records FoundNo Family History Records FoundNo Family History Records FoundNo Family History Records FoundNo Family History Records Found Advance Directives No Advanced Directives Records FoundNo Advanced Directives Records FoundNo Advanced Directives Records FoundNo Advanced Directives Records FoundNo Advanced Directives Records Found Additional Source Comments INFORMATION SOURCE (unrecogn ized section and content) DATE CREATED AUTHOR 06/23/2022 [facility] DATE CREATED AUTHOR AUTHOR'S ORGANIZ ATION 08/21/2022 [facility] DATE CREATED AUTHOR AUTHOR'S ORGANIZ ATION 10/03/2023 [facility] DATE CREATED AUTHOR AUTHOR'S ORGANIZ ATION 03/27/2024 [facility] DATE CREATED AUTHOR AUTHOR'S ORGANIZ ATION 07/13/2024 [facility] FOR RECORDS PERTAINING TO PATIENTS WHO ARE OR HAVE BEEN ENROLLED IN A CHEMICAL DEPENDENCY/SUBSTANCEABUSE PROGRAM, SOME INFORMATION MAY BE OMITTED. This clinical summary was aggregated from multiple sources. Caution should be exercised in using it in the provision of clinical care. This summary normalizes information from multiple sources, and as a consequence, information in this document may materially change the coding, format and clinical context of patient data. In addition, data may be omitted in some cases. CLINICAL DECISIONS SHOULD BE BASED ON THE PRIMARY CLINICAL RECORDS. [facility]. provides no warranty or guarantee of the accuracy or completeness of information in this document.
--- NOTE | 2024-09-06 08:57 | MR_ITS ---
[address] [address] Patient Name: NESHA LEE MRN: [id number] date: 2005 Sex: F Assigned Patient Location: MRI Current Patient Location: MRI Accession/Order Number: [id number] Exam Date: 09/06/2024 09:05 Report Date: 09/09/2024 15:29 At the request of: KATELIN MAHONEY Procedure: MR shoulder RT wo con EXAM: MR shoulder RT wo con HISTORY: Acute Pain Of Right Shoulder COMPARISON: 07/10/2024 TECHNIQUE: MRI images obtained with multiple sequences. MRI of the right shoulder without contrast. Sequences obtained by standard department protocol. FINDINGS: Normal alignment of the acromioclavicular joint. Supraspinatus, infraspinatus, teres minor and subscapularis tendons are intact. Muscle bulk of the rotator cuff is preserved. No acute fractures. Biceps tendon is intact and within the intertubercular groove. No labral detachment. No full-thickness chondral loss of the glenohumeral joint. No right axillary adenopathy. MR/MR shoulder RT wo con IMPRESSION: 1. No acute fractures. 2. Rotator cuff is intact. 3. No full-thickness chondral loss. 4. Normal alignment of the right shoulder. Electronically authenticated by: IVANIA DAMIAN Date: 09/09/2024 15:29
== END 2024-09-06 08:41 | disposition home or self-care (01) ==
LOC: MRI 08:42
PROVIDERS: PCP Family Medicine; Visit Provider Orthopaedic Surgery
DX: M25.511 Pain in right shoulder (principal)
CPT/HCPCS: 73221